=== PATIENT | female | born 1955 | race Caucasian/White ===

== ENCOUNTER 2016-09-25 08:12 | Day surgery (SDC) | payer BC ==
[2016-09-24 11:28] VITALS: BMI 33.0
[~2016-09-25 08:12] MED LIST: LACTATED RINGERS 1,000 ML IV SCH
[2016-09-25 08:33] VITALS: TEMP 97.9
[2016-09-25] MEDS ORDERED: LIDOCAINE 1% 20 ML VIAL (10MG/ML) FOR IV START INTRADERMA ONE (08:42)
[2016-09-25] MEDS ORDERED: PROPOFOL 10 MG/ML 20 ML VIAL IV ONE (09:13)
[2016-09-25] MEDS ORDERED: LIDOCAINE 1% INJ 10MG/ML (20 ML MDV) ONE (09:13)
--- NOTE | 2016-09-25 09:41 | P.PCN ---
Date of Procedure: 09/25/16 Preoperative Diagnosis: Postoperative Diagnosis: Procedure(s) Performed: Procedure: Total colonoscopy. Preoperative diagnosis: Screening for neoplasia. Postoperative diagnosis: Sigmoid diverticulosis with no evidence of acute diverticulitis, strictures, polyps or cancer. Preparation: HalfLytely prep. Sedation: Was provided by anesthesia. Brief clinical history: The patient is a 61-year-old female who is scheduled for this evaluation for screening for neoplasia age being her risk factor. Her mother had polyps but there is no family history of colon cancer. The patient has no abdominal complaints, bleeding or anemia. This would be her first colonoscopy. Procedure: With the patient on her left lateral decubitus position and after informed consent and adequate sedation, the perianal area was inspected and it did not show any fissures or fistulas. There were no masses felt on digital rectal examination. The Olympus CFQ 160L video colonoscope was then inserted in the rectum in the usual fashion and advanced to the cecum. There were a few diverticular orifices seen scattered in the sigmoid with no evidence of acute diverticulitis or strictures. No polyps or tumors were seen. I retroflexed the endoscope in the rectum before the endoscope was withdrawn. The patient tolerated the procedure well. Plan: The patient was reassured. Discussed dietary measures. She will follow- up with you as planned and I recommended repeat exam in 10 years. Implants: Indications for Procedure: Operative Findings: Description of Procedure:
[2016-09-25 09:46] VITALS: RESP 16
[2016-09-25 10:10] VITALS: BP 125/61; PULSE 70
== END 2016-09-25 10:51 | disposition home or self-care (01) ==
LOC: ORWHC2ENDO 08:12
DX: Z12.11 Encounter for screening for malignant neoplasm of colon (principal); K57.30 Diverticulosis of large intestine without perforation or abscess without bleeding; Z83.71 Family history of colonic polyps; I25.10 Atherosclerotic heart disease of native coronary artery without angina pectoris; I10 Essential (primary) hypertension; I25.2 Old myocardial infarction; Z98.61 Coronary angioplasty status; Z79.82 Long term (current) use of aspirin; Z79.899 Other long term (current) drug therapy
CPT/HCPCS: J2001; J2704; G0105; 45378

== ENCOUNTER 2017-08-20 05:09 | Observation (INO) | payer BC, MEDICARE ==
[2017-08-20 05:43] LABS: Basophils % (A) 0 %; Eosinophils # (A) 0.1 k/uL (0-0.7); Eosinophils % (A) 2 %; HCT 36.7 % (34.0-46.0); HGB 12.3 gm/dL (11.4-16.0); Lymphocytes # (A) 1.3 k/uL (1.0-4.8); Lymphocytes % (A) 19 %; MCH 30.4 pg (25.0-35.0); MCHC 33.6 g/dL (31.0-37.0); MCV 90.3 fL (80.0-100.0); Mean Platelet Volume 8.4; Monocytes # (A) 0.7 k/uL (0-1.0); Monocytes % (A) 10 %; Neutrophils # (A) 4.5 k/uL (1.3-7.7); Neutrophils % (A) 66 %; Platelet Count 155 k/uL (150-450); RBC 4.06 m/uL (3.80-5.40); RDW 13.6 % (11.5-15.5); WBC 6.7 k/uL (3.8-10.6)
[2017-08-20 05:44] LABS: Albumin 3.8 g/dL (3.5-5.0); Calcium 9.2 mg/dL (8.4-10.2); Total Bilirubin 0.5 mg/dL (0.2-1.3); Total Protein 6.4 g/dL (6.3-8.2)
[2017-08-20 05:46] LABS: Potassium 4.4 mmol/L (3.5-5.1)
[2017-08-20] MEDS ORDERED: DIAZEPAM 5 MG/ML 2 ML INJ IVP STA (05:49)
--- NOTE | 2017-08-20 05:55 | ED ---
Chest Pain HPI - General Chief Complaint: Chest Pain Stated Complaint: Chest Pain/ Hx of CA Time Seen by Provider: 08/20/17 05:40 Source: patient Mode of arrival: ambulatory Limitations: physical limitation - History of Present Illness Initial Comments: This patient is a 62-year-old woman presenting to be evaluated for left-sided chest pains that started around 7 PM. The patient states that they have been intermittent. She describes them as being like a spasm and if she moves certain way or bruits in a certain way she'll have a spasming pain lasts a few seconds. She states that sometimes if she sits in certain position it is better. The patient believes that this is related to having walked to the beach yesterday and states that her rhythm at walking was not right. The patient is not having anginal symptoms. No dyspnea, diaphoresis, nausea or vomiting, palpitations, lightheadedness or syncope. Patient states she has. He said had 2 heart attacks and this does not feel like either of those. MD Complaint: chest pain Onset/Timin -: hour(s) Onset: during rest Pain Location: left chest Pain Radiation: none Severity: moderate Quality: other (Like a spasm) Consistency: intermittent Improves With: nothing Worsens With: inspiration, movement Treatments Prior to Arrival: none - Related Data Home Medications Medication Instructions Recorded Confirmed Aspirin 162 mg PO DAILY 07/05/14 08/20/17 Carvedilol [Coreg] 25 mg PO BID 09/24/16 08/20/17 Cholecalciferol [Vitamin D3] 1,000 unit PO DAILY 09/24/16 08/20/17 Glucosam/Jonah-Msm1/C/Thad/Bosw 1 each PO DAILY 09/24/16 08/20/17 [Glucosamine-Chondroitin Tablet] Lisinopril [Prinivil] 20 mg PO HS 09/24/16 08/20/17 Spironolactone-Hctz 25-25Mg 1 tab PO DAILY 09/24/16 08/20/17 [Aldactazide 25-25Mg] amLODIPine BESYLATE [Norvasc] 5 mg PO BID 09/24/16 08/20/17 Atorvastatin [Lipitor] 20 mg PO HS 08/20/17 08/20/17 Furosemide [Lasix] 40 mg PO DAILY 08/20/17 08/20/17 Allergies Allergy/AdvReac Type Severity Reaction Status Date / Time No Known Allergies Allergy Verified 08/20/17 07:44 Review of Systems ROS Statement: Those systems with pertinent positive or pertinent negative responses have been documented in the HPI. ROS Other: All systems not noted in ROS Statement are negative. Constitutional: Denies: fever, chills, weakness Respiratory: Denies: cough, dyspnea Cardiovascular: Reports: as per HPI, chest pain. Denies: palpitations, orthopnea, edema, syncope Gastrointestinal: Denies: abdominal pain, nausea, vomiting Genitourinary: Denies: dysuria, hematuria Musculoskeletal: Denies: back pain Skin: Denies: rash Neurological: Denies: headache, weakness, numbness, paresthesias EKG Findings - EKG Results: EKG: interpreted by TAYLOR, sinus rhythm, normal axis, normal QRS, normal ST/T - Blocks, [place], Hypertrophy, ST Abn: AV and intraventricular conduction: 1 AV block Past Medical History Past Medical History: Hypertension, Myocardial Infarction (CA) Additional Past Medical History / Comment(s): hemorrhoids, CA x2 Last Myocardial Infarction Date:: 2007 History of Any Multi-Drug Resistant Organisms: None Reported Past Surgical History: Heart Catheterization, Orthopedic Surgery Additional Past Surgical History / Comment(s): LT KNEE REPLACEMENT,PTCA Past Anesthesia/Blood Transfusion Reactions: No Reported Reaction Past Psychological History: No Psychological Hx Reported Smoking Status: Never smoker - Past Family History Mother Family Medical History: Cancer Additional Family Medical History / Comment(s): breast,brain Father Additional Family Medical History / Comment(s): emphysema General Exam Limitations: physical limitation General appearance: alert, in no apparent distress, obese Head exam: Present: atraumatic, normocephalic Eye exam: Present: normal appearance. Absent: scleral icterus, conjunctival injection ENT exam: Present: normal oropharynx Neck exam: Present: normal inspection Respiratory exam: Present: normal lung sounds bilaterally. Absent: respiratory distress, wheezes, rales, rhonchi, stridor, chest wall tenderness, accessory muscle use, decreased breath sounds, prolonged expiratory Cardiovascular Exam: Present: regular rate, normal rhythm, normal heart sounds. Absent: systolic murmur, diastolic murmur, rubs, gallop GI/Abdominal exam: Present: soft. Absent: distended, tenderness, guarding, rebound, mass Extremities exam: Present: normal inspection, normal capillary refill. Absent: pedal edema, calf tenderness Back exam: Present: normal inspection. Absent: CVA tenderness (R), CVA tenderness (L) Neurological exam: Present: alert Skin exam: Present: warm, dry, intact, normal color. Absent: rash Course Vital Signs 08/20/17 08/20/17 08/20/17 05:23 06:00 06:29 Temperature 97.7 F 98 F Pulse Rate 74 87 73 Respiratory 17 18 20 Rate Blood Pressure 116/57 116/78 117/56 O2 Sat by Pulse 100 97 99 Oximetry 08/20/17 08/20/17 08/20/17 06:53 07:46 08:37 Temperature Pulse Rate 73 74 Respiratory 20 20 Rate Blood Pressure 114/60 123/65 O2 Sat by Pulse 97 99 99 Oximetry 08/20/17 08/20/17 08:53 09:07 Temperature Pulse Rate 72 74 Respiratory 20 Rate Blood Pressure 112/60 106/57 O2 Sat by Pulse 97 96 Oximetry Disposition Clinical Impression: Chest pain, Elevated d-dimer Disposition: ADMITTED IP TO THIS [facility] Condition: Fair Is patient prescribed a controlled substance at d/c from ED?: No
[2017-08-20 05:57] LABS: Creatine Kinase 128 U/L (30-135)
[2017-08-20 06:10] LABS: Creatine Kinase MB 1.4 ng/mL (0.0-2.4); Troponin I <0.012 ng/mL (0.000-0.034)
--- NOTE | 2017-08-20 06:29 | XR ---
EXAMINATION TYPE: XR chest 2V DATE OF EXAM: 08/20/2017 COMPARISON: NONE HISTORY: Chest pain TECHNIQUE: Frontal and lateral views of the chest are obtained. FINDINGS: Heart and mediastinum are normal. Lungs are clear. Diaphragm is normal. Bony thorax appear s normal. IMPRESSION: Normal chest
--- NOTE | 2017-08-20 07:46 | CT ---
EXAMINATION TYPE: CT chest angio for PE DATE OF EXAM: 08/20/2017 COMPARISON: Radiograph same day HISTORY: 62-year-old female Chest pain and "contractions" per patient TECHNIQUE: Contiguous axial scanning of the chest performed with IV Contrast, patient injected with 8 0 mL of Isovue 370. Coronal/sagittal MIP reconstructions performed. CT DLP: 975 mGycm Automated exposure control for dose reduction was used. FINDINGS: Heart normal size with trace anterior basilar pericardial fluid. Coronary vessel calcifications are p resent in remarkable for coronary artery disease. Ascending aorta borderline ectatic at 3.5 cm. There is conventional arterial vessel branching anatomy . Mildly enlarged caliber to the main right and left pulmonary arteries and 2.7 cm each suggestive of p ulmonary arterial hypertension. There is suboptimal opacification of pulmonary arterial system withou t evidence for a large central or lobar embolus. Additional respiratory motion artifacts at the lung bases limiting many of the segmental branches. No definite pulmonary embolus in the upper lungs. No thoracic lymphadenopathy. Mild centrilobular emphysema. Dependent atelectasis lower lungs. Additional strandy lower lung areas of atelectasis. No consolidation or pleural effusion. Some reflux of contrast into the hepatic veins is noted. Layering gallstones measuring up to 1.4 cm. Bones: Endplate spondylosis mid to lower thoracic spine. IMPRESSION: 1. SUBOPTIMAL CONTRAST BOLUS AND RESPIRATORY MOTION ARTIFACTS LIMIT THE EXAM. NO DEFINITE PULMONARY E MBOLISM IN THE UPPER LUNGS OR EVIDENCE FOR LARGE CENTRAL OR LOBAR EMBOLUS. MANY OF THE SEGMENTAL AND MORE DISTAL ARTERIAL BRANCHES IN THE MID AND LOWER LUNGS ARE NONDIAGNOSTIC. 2. COPD WITH MILD EMPHYSEMA. 3. FINDINGS SUGGEST PULMONARY ARTERIAL HYPERTENSION. ADDITIONALLY, THERE IS REFLUX OF CONTRAST INTO T HE HEPATIC VEINS; CORRELATE FOR ELEVATED RIGHT HEART PRESSURES. 4. CHOLELITHIASIS.
[2017-08-20] MEDS ORDERED: HEPARIN SODIUM,PORCINE 5,000 UNIT/ML 1 ML VIAL SQ SCH (08:00)
[2017-08-20] MEDS: NITROGLYCERIN SL TABS 0.4 MG TAB SUBLINGUAL PRN ×3 (08:46→09:06)
[2017-08-20] MEDS: SODIUM CHLORIDE 0.9% 1,000 ML IV SCH (09:06)
[2017-08-20] MEDS ORDERED: HEPARIN SODIUM,PORCINE 5,000 UNIT/ML 1 ML VIAL IV PRN (10:24)
[2017-08-20] MEDS ORDERED: HEPARIN SODIUM,PORCINE 5,000 UNIT/ML 1 ML VIAL IV ONE (10:24)
[2017-08-20] MEDS ORDERED: ATORVASTATIN 80 MG TAB PO STA (10:26)
[2017-08-20] MEDS ORDERED: ASPIRIN 325 MG TAB PO STA (10:26)
[2017-08-20] MEDS ORDERED: NITROGLYCERIN SL TABS 0.4 MG TAB SUBLINGUAL PRN (10:26)
[2017-08-20] MEDS ORDERED: ALPRAZolam 0.5 MG TAB PO PRN (10:26)
[2017-08-20] MEDS ORDERED: SODIUM CHLORIDE 0.9% 1,000 ML in EMPTY BAG 1 BAG IV ONE (10:26)
[2017-08-20] MEDS ORDERED: ALPRAZolam 0.25 MG TAB PO PRN (10:26)
--- NOTE | 2017-08-20 11:17 | CONS ---
CONSULTATION CHIEF COMPLAINT: Chest pain. This is a 62-year-old lady with history of coronary artery disease, status post prior angioplasty, hypertension, dyslipidemia, who presented to hospital with symptoms of unstable angina. The patient was on the beach yesterday between 12 to 2 did not do a whole lot, went home, was in the pool for a while and subsequently around 5:00 To 6:00 yesterday evening she had twinges in her chest, mild intensity, unassociated with diaphoresis, unrelated to exertion. She went to bed and woke up around 3, 3:30 in the morning, got up, went to the bathroom and again had an episode of chest pain. She says this is similar to the chest discomfort that she had prior to her myocardial infarction. First set of troponin is negative. EKG does not reveal ischemic changes. D-dimer was elevated. She had a CT scan of the chest that was negative for pulmonary embolism. Her presentation is consistent with a diagnosis of unstable angina. She had recent negative stress test. I am going to treat her with IV heparin and hydrate her as the creatinine is 1.2 and consider cardiac catheterization on her tomorrow. PAST MEDICAL HISTORY: Significant for hypertension and dyslipidemia. CURRENT MEDICATIONS: Current medications include aspirin, Coreg 25 b.i.d., Norvasc 5 b.i.d., Lipitor 20 q. daily, Lasix 40 q. daily, lisinopril 20 q. daily, and Aldactazide. ALLERGIES: There are no known drug allergies. FAMILY HISTORY: Negative for premature coronary artery disease. SOCIAL HISTORY: Negative for current smoking, EtOH abuse, or drug abuse. REVIEW OF SYSTEMS: HEENT is unremarkable. CARDIAC: As described above. RESPIRATORY: Negative. GI: Negative. GENITOURINARY: Negative. ALLERGY/IMMUNOLOGICAL: Negative. SKIN: Negative. MUSCULOSKELETAL: Negative. ENDOCRINE: Negative. DERM: Negative. CONSTITUTIONAL: Negative. ONCOLOGICAL: Negative. Rest of the system review is not relevant. PHYSICAL EXAMINATION: On exam, heart rate is 74 beats per minute. Blood pressure is 106/57. Respiratory rate is 18. O2 sat is 96% on 2 L. There is no jugular venous distention. Carotid upstroke is normal. There is no bruit. Chest exam reveals good air entry bilaterally. Heart exam reveals first and second heart sounds. No gallop. No murmur. No rub. Abdomen is soft, nontender. Examination of extremities did not reveal any edema. Peripheral pulses are felt. [employer] exam did not reveal focal neurological deficits. EKG does not reveal ischemic changes. Creatinine is mildly elevated. D-dimer is up. CT scan of the chest is negative. First set of troponin is negative. ASSESSMENT: 1. Unstable angina. 2. Hypertension. 3. Coronary artery disease, status post prior angioplasty. PLAN: We will hydrate the patient. Start her on IV heparin. Obtain a 2D echo and schedule her for a cardiac cath tomorrow with Dr. Magaña. TANIKA / BONNIE: [id number] /
[2017-08-20] MEDS: HEPARIN SOD,PORK IN 0.45% NACL 25,000 UNIT in 0.45% NACL 1 500ML.BAG IV SCH (11:29)
[2017-08-20 11:43] LABS: Partial Thromboplastin Time 23.5 sec (22.0-30.0); Prothrombin Time 10.1 sec (9.0-12.0)
[2017-08-20 11:46] LABS: Basophils % (A) 0 %; Eosinophils # (A) 0.1 k/uL (0-0.7); Eosinophils % (A) 1 %; HCT 36.4 % (34.0-46.0); HGB 12.1 gm/dL (11.4-16.0); Lymphocytes # (A) 1.3 k/uL (1.0-4.8); Lymphocytes % (A) 19 %; MCH 30.4 pg (25.0-35.0); MCHC 33.3 g/dL (31.0-37.0); MCV 91.2 fL (80.0-100.0); Mean Platelet Volume 8.2; Monocytes # (A) 0.6 k/uL (0-1.0); Monocytes % (A) 9 %; Neutrophils # (A) 4.4 k/uL (1.3-7.7); Neutrophils % (A) 67 %; Platelet Count 146 k/uL (150-450); RBC 3.99 m/uL (3.80-5.40); RDW 13.7 % (11.5-15.5); WBC 6.6 k/uL (3.8-10.6)
[2017-08-20 11:54] LABS: Creatine Kinase 97 U/L (30-135)
[2017-08-20 12:08] LABS: Creatine Kinase MB 1.1 ng/mL (0.0-2.4); Troponin I <0.012 ng/mL (0.000-0.034)
--- NOTE | 2017-08-20 12:52 | ECHOF ---
Referral Reason:chest pain MEASUREMENTS -------- HEIGHT: 180.3 cm WEIGHT: 136.1 kg BP: 106/57 RVIDd: 3.8 cm (< 3.3) IVSd: 1.1 cm (0.6 - 1.1) LVIDd: 5.2 cm (3.9 - 5.3) LVPWd: 1.1 cm (0.6 - 1.1) IVSs: 1.4 cm LVIDs: 3.5 cm LVPWs: 1.4 cm LAESV Index (A-L): 25.65 ml/m Ao Diam: 2.8 cm (2.0 - 3.7) AV Cusp: 1.7 cm (1.5 - 2.6) LA Diam: 3.6 cm (2.7 - 3.8) MV E Saad: 0.78 m/s MV DecT: 238 ms MV A Saad: 0.84 m/s MV E/A Ratio: 0.93 RAP: 5.00 mmHg RVSP: 13.59 mmHg FINDINGS -------- Sinus rhythm. This was a technically difficult study with suboptimal views. The left ventricular size is normal. There is mild concentric left ventricular hypertrophy. Overa ll left ventricular systolic function is normal with, an EF between 55 - 60 %. The right ventricle is mildly enlarged. Normal LA size by volume 22+/-6 ml/m2. The right atrium is normal in size. 3ml of Lumason was utilized for enhancement of images. There is mild aortic valve sclerosis. There is no evidence of aortic regurgitation. There is no e vidence of aortic stenosis. The mitral valve leaflets are mildly thickened. There is trace to mild mitral regurgitation. Trace tricuspid regurgitation present. Right ventricular systolic pressure is normal at < 35 mmHg. There is no evidence of pulmonary hypertension. The pulmonic valve was not well visualized. The aortic root size is normal. IVC Not well visulized. There is no pericardial effusion. CONCLUSIONS -------- 1. Sinus rhythm. 2. This was a technically difficult study with suboptimal views. 3. The left ventricular size is normal. 4. There is mild concentric left ventricular hypertrophy. 5. Overall left ventricular systolic function is normal with, an EF between 55 - 60 %. 6. The right ventricle is mildly enlarged. 7. Normal LA size by volume 22+/-6 ml/m2. 8. 3ml of Lumason was utilized for enhancement of images. 9. There is mild aortic valve sclerosis. 10. The mitral valve leaflets are mildly thickened. 11. There is trace to mild mitral regurgitation. 12. Trace tricuspid regurgitation present. 13. Right ventricular systolic pressure is normal at < 35 mmHg. 14. There is no evidence of pulmonary hypertension. 15. The pulmonic valve was not well visualized. 16. The aortic root size is normal. 17. IVC Not well visulized. 18. There is no pericardial effusion. SPEECH THERAPIST TECHNICIAN: Mor Lagos RDCS
--- NOTE | 2017-08-20 17:02 | HP ---
HISTORY AND PHYSICAL DATE OF SERVICE: 08/20/17 PRESENTING COMPLAINT: Left-sided chest cramps. HISTORY OF PRESENTING COMPLAINT: This is a very pleasant 62-year-old patient Dr. Osullivan. Also follows with grain origination specialist Dr. Abhishek Magaña. Chronic stable medical conditions include hypertension, osteoarthritis, hyperlipidemia. The patient had angioplasty back in 2005 at [facility]. Yesterday around 6:00 pm she developed cramping on the left side of the chest, lasted about 2 to 3 hours, and patient went to sleep. The patient woke up around 3:30 again with cramping on the left side of the chest far more severe. The pain did not radiate. There was no shortness of breath. No dizziness. No lightheadedness. No perspiration. Concern of this being cardiac and a prior history of angioplasty resulted patient coming down to the ER. The patient is put on IV heparin. Seen by Dr. Dana marr who is contemplating a cardiac catheterization tomorrow. REVIEW OF SYSTEMS: CONSTITUTIONAL: None. HEENT: None. RESPIRATORY: None. CARDIOVASCULAR: As above. GASTROINTESTINAL: None. GENITOURINARY: None. MUSCULOSKELETAL: Arthritic pain in different joints. DERMATOLOGICAL, HEMATOLOGIC, LYMPHATIC: None. PSYCHIATRY: None. NEUROLOGICAL: None. PAST MEDICAL HISTORY: Hypertension, coronary artery disease with angioplasty in 2005, osteoarthritis, hyperlipidemia. PAST SURGICAL HISTORY: , cardiac catheterization, angioplasty in 2005, left total knee replacement, colonoscopy. SOCIAL HISTORY: . Does not smoke or drink alcohol. Is a homemaker. FAMILY HISTORY: Mother had breast and brain cancer. HOME MEDICATIONS: 1. Aldactazide 20/25 1 tab p.o. daily. 2. Prinivil 20 mg p.o. q.h.s. 3. Lasix 40 mg p.o. daily. 4. Lipitor 20 mg at bedtime. 5. Norvasc 5 mg b.i.d. 6. Glucosamine chondroitin 1 tab p.o. daily. 7. Vitamin D3 1000 units p.o. daily. 8. Coreg 25 mg p.o. b.i.d. 9. Aspirin 162 mg p.o. daily. ALLERGIES: None. PHYSICAL EXAMINATION: Vital signs on presentation: Temperature 97.7, pulse 74, respirations 18, blood pressure 116/57, pulse ox 100% on room air. GENERAL APPEARANCE: Well built, BMI 41.8, sitting up, awake. EYES: Pupils equal. Conjunctivae normal. HEENT: External appearance of nose and ears normal. Oral cavity normal. NECK: JVD not raised. Mass not palpable. RESPIRATORY: Effort normal. Lungs are clear. CARDIOVASCULAR: First and second sounds normal. No edema. ABDOMEN: Soft, nontender. Liver and spleen not palpable. LYMPHATIC: No lymph nodes palpable in neck or axillae. PSYCHIATRY: Alert and oriented x3. Mood and affect normal. NEUROLOGICAL: Pupils equal. Cranial nerves grossly intact. Power and sensation grossly intact. INVESTIGATIONS: White count 6.6, hemoglobin 12.1. Troponin x2 negative. EKG normal sinus rhythm with some poor R-wave progression. ASSESSMENT: 1. Left-sided chest pain more like a cramping in a patient with known prior angioplasty. Need to rule out a cardiac cause. If not, this could be muscle cramps. 2. Essential hypertension. 3. Coronary artery disease with angioplasty in 2005. 4. Primary osteoarthritis. 5. Hyperlipidemia. 6. Morbid obesity, BMI 41.8. 7. IV heparin monitoring. PLAN: The patient with IV heparin monitoring, aspirin. We will resume patient's Coreg. The patient's blood pressure is not that high, been running on the lower side. Hence, we will hold off the other antihypertensive. Cardiology is contemplating a cardiac catheterization. Care was discussed with the patient. TANIKA / BONNIE: [id number] /
[2017-08-20] MEDS: CARVEDILOL 12.5 MG TAB PO SCH (18:27)
[2017-08-20 18:28] LABS: Creatine Kinase 95 U/L (30-135)
[2017-08-20 18:40] LABS: Creatine Kinase MB 0.9 ng/mL (0.0-2.4); Troponin I <0.012 ng/mL (0.000-0.034)
[2017-08-20] MEDS: ATORVASTATIN 20 MG TAB PO SCH (20:07)
[2017-08-21 05:58] LABS: Glucose,Whole Blood 104 mg/dL (75-99)
[2017-08-21] MEDS: SODIUM CHLORIDE 0.9% 1,000 ML IV SCH (06:10)
[2017-08-21] MEDS: CARVEDILOL 12.5 MG TAB PO SCH ×2 (06:10→17:42)
[2017-08-21] MEDS ORDERED: ASPIRIN 325 MG TAB PO SCH (09:00)
[2017-08-21] MEDS ORDERED: ASPIRIN 325 MG TAB PO ONE (09:00)
[2017-08-21] MEDS ORDERED: ATORVASTATIN 80 MG TAB PO ONE (09:00)
[2017-08-21] MEDS ORDERED: ASPIRIN 81 MG PO SCH (09:00)
[2017-08-21 09:01] LABS: Basophils % (A) 0 %; Eosinophils # (A) 0.1 k/uL (0-0.7); Eosinophils % (A) 2 %; HCT 36.4 % (34.0-46.0); HGB 12.3 gm/dL (11.4-16.0); Lymphocytes # (A) 1.4 k/uL (1.0-4.8); Lymphocytes % (A) 26 %; MCH 30.5 pg (25.0-35.0); MCHC 33.7 g/dL (31.0-37.0); MCV 90.4 fL (80.0-100.0); Mean Platelet Volume 9.2; Monocytes # (A) 0.5 k/uL (0-1.0); Monocytes % (A) 10 %; Neutrophils # (A) 3.1 k/uL (1.3-7.7); Neutrophils % (A) 59 %; Platelet Count 121 k/uL (150-450); RBC 4.02 m/uL (3.80-5.40); RDW 13.6 % (11.5-15.5); WBC 5.3 k/uL (3.8-10.6)
[2017-08-21 09:30] LABS: Cholesterol 108 mg/dL (<200); HDL Cholesterol 35 mg/dL (40-60); LDL Cholesterol,Calculated 53 mg/dL (0-99); Triglycerides 98 mg/dL (<150)
[2017-08-21] MEDS: HEPARIN SOD,PORK IN 0.45% NACL 25,000 UNIT in 0.45% NACL 1 500ML.BAG IV SCH (11:34)
[2017-08-21] MEDS ORDERED: MIDAZOLAM 2 MG/2 ML VIAL ONE (11:59)
[2017-08-21] MEDS ORDERED: fentaNYL (PF) 50 MCG/ML 2 ML AMP ONE (11:59)
[2017-08-21] MEDS ORDERED: IV FLUID CONTINUATION 700 ML IV ONE (12:06)
[2017-08-21] MEDS ORDERED: fentaNYL (PF) 50 MCG/ML 2 ML AMP IV ONE (12:12)
[2017-08-21] MEDS ORDERED: MIDAZOLAM 2 MG/2 ML VIAL IVP ONE (12:12)
[2017-08-21] MEDS ORDERED: LIDOCAINE 1% INJ 10MG/ML (20 ML MDV) SQ ONE (12:19)
[2017-08-21] MEDS ORDERED: IOPAMIDOL-370 125ML BTL INJ ONE (12:31)
--- NOTE | 2017-08-21 13:56 | CC ---
CARDIAC CATHETERIZATION REPORT Mrs. Newell is a 62-year-old female, who was admitted to the hospital with symptoms suggestive of unstable angina syndrome. Patient's EKGs and cardiac enzymes were normal. Patient was advised further evaluation with a cardiac catheterization for definitive diagnosis. PROCEDURE: The right groin was prepped and draped in the usual manner and the skin was infiltrated with 2% Xylocaine. The right femoral artery was entered using Seldinger technique. A #6-Brazilian sheath was placed in. Selective coronary angiography was then performed in multiple projections and the left ventricular pressures were obtained. Patient tolerated the procedure well. Sheath was removed and good hemostasis was achieved with Angio-Seal. HEMODYNAMICS: Left ventricular end-diastolic pressure is 12-14 mmHg prior to angiography. No gradient is noted across the aortic valve. Moderate sedation was used, sedation time was 12 minutes. SELECTIVE CORONARY ANGIOGRAPHY: Left main coronary artery is normal and patent. LAD is a good caliber blood vessel and gives rise to good-sized diagonal branch. LAD and its branches are normal. Circumflex coronary artery is a good caliber blood vessel and gives rise as a good size obtuse marginal branch. Circumflex coronary artery and its branches are normal. Right coronary artery is dominant in distribution and gives rise to the PDA and PLV branches which are normal. FINAL IMPRESSION: This study reveals normal coronary arteries. RECOMMENDATIONS: Continue medical treatment and risk factor modification. MMODL / IJN: [id number] /
--- NOTE | 2017-08-21 22:42 | PN ---
PROGRESS NOTE DATE OF SERVICE: 08/21/2017. PRESENTING COMPLAINT: Left-sided chest cramps. INTERVAL HISTORY: This patient presented with chest cramps, being worked up for coronary artery disease. The patient went down for a cardiac catheterization today. I do not have the full results. The patient is currently at bedrest. REVIEW OF SYSTEMS: Done for constitutional, cardiovascular, GI, pulmonary; relevant findings as above. CURRENT MEDICATIONS: Reviewed. PHYSICAL EXAMINATION: Temperature 98, pulse 71, respiratory rate 18, blood pressure 118/69, pulse ox 96% on room. GENERAL APPEARANCE: Lying in bed comfortable. EYES: Pupils equal. Conjunctivae normal. HEENT: External appearance of nose and ears normal. Oral cavity normal. NECK: JVD not raised. Mass not palpable. Respiratory effort normal. LUNGS: Clear. CARDIOVASCULAR: 1st and 2nd heart sounds. No edema. ABDOMEN: Soft, nontender. Liver and spleen not palpable. PSYCHIATRY: Alert and oriented x3. Mood normal. INVESTIGATIONS: The patient did have a cardiac catheterization, that has come back to be negative. ASSESSMENT: 1. Left-sided chest wall cramping, probably musculoskeletal. 2. Essential hypertension. 3. Coronary artery disease with angioplasty in 2005. 4. Primary osteoarthritis. 5. Hyperlipidemia. 6. Morbid obesity, BMI 41.8. PLAN: Patient is on bedrest right now. Should be able to be discharged later today or tomorrow. Care was discussed with the patient. TANIKA / BONNIE: [id number] /
[2017-08-21] MEDS: ATORVASTATIN 20 MG TAB PO SCH (22:51)
[2017-08-22 06:30] LABS: Basophils % (A) 1 %; Eosinophils # (A) 0.1 k/uL (0-0.7); Eosinophils % (A) 2 %; HCT 37.6 % (34.0-46.0); HGB 12.1 gm/dL (11.4-16.0); Lymphocytes # (A) 1.2 k/uL (1.0-4.8); Lymphocytes % (A) 22 %; MCHC 32.2 g/dL (31.0-37.0); MCV 93.4 fL (80.0-100.0); Mean Platelet Volume 8.2; Monocytes # (A) 0.5 k/uL (0-1.0); Monocytes % (A) 9 %; Neutrophils # (A) 3.4 k/uL (1.3-7.7); Neutrophils % (A) 65 %; Platelet Count 127 k/uL (150-450); RBC 4.03 m/uL (3.80-5.40); RDW 13.7 % (11.5-15.5); WBC 5.3 k/uL (3.8-10.6)
[2017-08-22] MEDS ORDERED: ASPIRIN 81 MG PO SCH (09:00)
[2017-08-22] MEDS: CARVEDILOL 12.5 MG TAB PO SCH (09:02)
--- NOTE | 2017-08-22 11:27 | P.PN ---
Subjective Progress Note Date: 08/22/17 Principal diagnosis: Chest discomfort This is a pleasant 62-year-old female patient was admitted to the hospital with a chest discomfort and underwent a heart catheterization by Dr. Magaña and was found to have normal coronaries. On follow-up with her today, she denies having any chest pain or chest discomfort or shortness of breath or dizziness or lightheadedness. From a cardiovascular standpoint of view, the patient can be discharged home. Objective - Vital Signs Vital signs: Vital Signs Temp 97.0 F L 08/22/17 08:00 Pulse 71 08/21/17 11:31 Resp 18 08/22/17 08:00 BP 137/79 08/22/17 08:00 Pulse Ox 97 08/22/17 08:00 Intake & Output 08/21/17 08/22/17 08/22/17 18:59 06:59 18:59 Intake Total 718.43 118 Balance 718.43 118 Weight 132.5 kg Intake: IV 100 Intake, IV Titration 138.43 Amount Heparin Sod,Pork in 0.45% 138.43 NaCl 25,000 unit In 0.45 % NaCl 1 500ml.bag @ 7.35 UNITS/KG/HR 20 mls/hr IV .Q24H [facility] Rx#:[id number] Oral 480 118 Other: Voiding Method Toilet Toilet # Voids 1 2 - Constitutional General appearance: Present: no acute distress - Cardiovascular Rhythm: regular Heart sounds: normal: S1, S2 - Labs CBC & Chem 7: 08/22/17 05:55 08/20/17 05:24 Labs: Abnormal Lab Results - Last 24 Hours (Table) 08/22/17 Range/Units 05:55 Plt Count 127 L (150-450) k/uL Assessment and Plan Assessment: Assessment #1 chest discomfort Plan #1 the patient underwent a heart catheterization showed normal coronaries #2 from the cardiovascular standpoint overview, she can be discharged home.
[2017-08-22] MEDS: HEPARIN SOD,PORK IN 0.45% NACL 25,000 UNIT in 0.45% NACL 1 500ML.BAG IV SCH (11:32)
[2017-08-22] MEDS: SODIUM CHLORIDE 0.9% 1,000 ML IV SCH (11:32)
[2017-08-22 14:07] VITALS: BP 126/70; PULSE 78; RESP 16; TEMP 96.9
--- NOTE | 2017-08-23 23:17 | DS ---
DISCHARGE SUMMARY DATE OF ADMISSION: 08/20/2017. DATE OF DISCHARGE: 08/22/2017. FINAL DIAGNOSES: 1. Left chest wall pain probably musculoskeletal. 2. Essential hypertension. 3. Coronary artery disease with angioplasty in 2005. 4. Primary osteoarthritis. 5. Hyperlipidemia. 6. Morbid obesity BMI 41.8. HOSPITAL COURSE: This patient presents with left-sided chest pain. Did undergo a cardiac catheterization by Dr. Abhishek Magaña that showed normal coronaries. 2D echo showed preserved LV function. Ejection fraction 55-60%. Patient's troponins were negative. Care was discussed with the patient. CONSULTATION: Dr. Abhishek Magaña from Cardiology who did the cardiac catheterization and Dr. Arturo Brambila did the initial consultation. DISCHARGE MEDICATIONS: 1. Vitamin D3 1000 units p.o. daily. 2. Glucosamine chondroitin 1 tablet p.o. daily. 3. Norvasc 5 mg p.o. b.i.d. 4. Lipitor 20 mg p.o. q.h.s. 5. Aspirin 81 mg p.o. daily. Discontinued medications: Coreg 25 mg b.i.d., Aldactazide Prinivil, and Lasix. FOLLOW UP: Follow up with Dr. Osullivan in 3 days, follow up with Dr. Abhishek Magaña on August 26, 2017. Patient's blood pressure at the time of discharge was 126/70 and the patient did well keeping off the medications she was on at home. EXAM: Lungs are clear. Cardiovascular: 1st and 2nd sounds normal. Discussion and discharge planning more than [address] Osullivan. JULIETAL / IJN: [id number] /
== END 2017-08-22 16:57 | disposition home or self-care (01) ==
LOC: EC 05:09 → 6SEL 07:46
PROVIDERS: ADMIT Hospitalist; ATTEND Hospitalist
DX: R07.89 Other chest pain (principal); R79.89 Other specified abnormal findings of blood chemistry; I10 Essential (primary) hypertension; I25.10 Atherosclerotic heart disease of native coronary artery without angina pectoris; E78.5 Hyperlipidemia, unspecified; M19.91 Primary osteoarthritis, unspecified site; Z68.41 Body mass index [BMI] 40.0-44.9, adult; E66.01 Morbid (severe) obesity due to excess calories; I25.2 Old myocardial infarction; Z79.82 Long term (current) use of aspirin; Z79.899 Other long term (current) drug therapy; Z82.5 Family history of asthma and other chronic lower respiratory diseases; Z80.3 Family history of malignant neoplasm of breast; Z80.8 Family history of malignant neoplasm of other organs or systems; Z98.61 Coronary angioplasty status
CPT/HCPCS: 96375 ×2; 99285; 96365; 96366 ×2; 96372; 36415; 93005; 93306; 93458; 85379; 80061; 80053; 82550; 82553; 83735; 84484; 85025 ×3; 85610; 85730 ×2; 71046; 71275; G0378 ×3; C1760; C1894; C1769; J2250; J1644 ×2; J3360; J2001; J3010; Q9950; Q9967 ×2; 96374

== ENCOUNTER → 2017-12-02 | Outpatient (CLI) | payer BC, MEDICARE | LOC: RADUSWWP 12:40 | PROVIDERS: ATTEND Family Medicine | DX: I73.9 Peripheral vascular disease, unspecified (principal) | CPT/HCPCS: 93923 ==

== ENCOUNTER → 2017-12-15 | Outpatient (CLI) | payer BC, MEDICARE ==
--- NOTE | 2017-12-15 16:32 | US ---
EXAMINATION TYPE: US kidneys/renal and bladder DATE OF EXAM: 12/15/2017 COMPARISON: NONE CLINICAL HISTORY: R94.4 Decreased Renal Function. Difficult due to patient body habitus EXAM MEASUREMENTS: Right Kidney: 9.9 x 4.5 x 4.4 cm Left Kidney: 10.2 x 5.1 x 4.5 cm Right Kidney: No hydronephrosis or masses seen Left Kidney: Limited due to patient body habitus. No hydronephrosis visualized Bladder: wnl as visualized, not fully distended Bilateral Jets seen: Yes There is no evidence for hydronephrosis at this point in time. No nephrolithiasis is seen. No kedar s are identified. The urinary bladder is anechoic. Bilateral ureteral jets are seen. IMPRESSION: No distinct abnormality appreciated at this time.
== END | disposition home or self-care (01) ==
LOC: RADUSWWP 15:59
PROVIDERS: ATTEND Family Medicine
DX: R94.4 Abnormal results of kidney function studies (principal)
CPT/HCPCS: 76770

== ENCOUNTER → 2018-03-04 | Outpatient (CLI) | payer BC, MEDICARE ==
[2018-03-04 13:39] LABS: Basophils % (A) 0 %; Eosinophils # (A) 0.1 k/uL (0-0.7); Eosinophils % (A) 1 %; HCT 37.8 % (34.0-46.0); HGB 12.8 gm/dL (11.4-16.0); Lymphocytes # (A) 1.6 k/uL (1.0-4.8); Lymphocytes % (A) 22 %; MCH 31.4 pg (25.0-35.0); MCHC 33.9 g/dL (31.0-37.0); MCV 92.8 fL (80.0-100.0); Monocytes # (A) 0.5 k/uL (0-1.0); Monocytes % (A) 7 %; Neutrophils # (A) 4.9 k/uL (1.3-7.7); Neutrophils % (A) 68 %; Platelet Count 194 k/uL (150-450); RBC 4.08 m/uL (3.80-5.40); RDW 13.3 % (11.5-15.5); WBC 7.3 k/uL (3.8-10.6)
[2018-03-04 14:05] LABS: Appearance,Urine Clear (Clear); Bilirubin,Urine Negative (Negative); Blood,Urine Negative (Negative); Color,Urine Yellow; Glucose,Urine (UA) Negative (Negative); Ketones,Urine Negative (Negative); Leukocyte Esterase,Urine Negative (Negative); Nitrite,Urine Negative (Negative); Protein,Urine Negative (Negative); Specific Gravity,Urine 1.015 (1.001-1.035); Urobilinogen,Urine <2.0 mg/dL (<2.0)
[2018-03-04 19:27] LABS: Parathyroid Hormone Intact 40.1 pg/mL (14.0-72.0)
[2018-03-04 20:17] LABS: Iron Saturation 15.09 (12.00-45.00); Protein, Total 6.2 g/dL (6.2-8.2)
[2018-03-04 20:24] LABS: Albumin 4.2 g/dL (3.80-4.90); Calcium 9.1 mg/dL (8.7-10.3); Magnesium 1.8 mg/dL (1.5-2.4); Phosphorus 3.9 mg/dL (2.4-5.1); Potassium 3.9 mmol/L (3.5-5.5); Uric Acid 5.9 mg/dL (2.9-7.7)
[2018-03-04 20:25] LABS: Vitamin D 25 Hydroxy 38.1 ng/mL (30.0-100.0)
[2018-03-04 21:51] LABS: Creatinine,Urine Random 104.7 mg/dL
[2018-03-05 10:59] LABS: Albumin 3.48 g/dL (3.80-4.90); Gamma Globulin 0.74 g/dL (0.70-1.50)
== END | disposition home or self-care (01) ==
LOC: LABWHC1 12:30
PROVIDERS: ATTEND Internal Medicine Nephrology
DX: N17.9 Acute kidney failure, unspecified (principal); E55.9 Vitamin D deficiency, unspecified; E21.3 Hyperparathyroidism, unspecified; M10.9 Gout, unspecified; N39.0 Urinary tract infection, site not specified; D64.9 Anemia, unspecified; R80.9 Proteinuria, unspecified
CPT/HCPCS: 36415; 80048; 81003; 82040; 82306; 82570; 82728; 83540; 83550; 83735; 83970; 84100; 84156; 84165; 84550; 85025; 86335

== ENCOUNTER 2018-04-06 14:13 | Inpatient (IN) | payer BC, MEDICARE ==
[2018-04-06] MEDS ORDERED: ASPIRIN 81 MG PO STA (14:39)
[2018-04-06] MEDS ORDERED: SODIUM CHLORIDE 0.9% 1,000 ML IV STA ×2 (14:39→16:17)
[2018-04-06] MEDS ORDERED: MORPHINE SULFATE 2 MG/ML SYRINGE IVP STA (14:39)
[2018-04-06] MEDS ORDERED: ACETAMINOPHEN TAB 325 MG TAB PO STA (14:41)
--- NOTE | 2018-04-06 14:51 | ED ---
General Adult HPI - General Chief complaint: Fall Stated complaint: fall/neck pain Time Seen by Provider: 04/06/18 14:25 Source: patient, RN notes reviewed, old records reviewed Mode of arrival: ambulatory Limitations: no limitations - History of Present Illness Initial comments: 62-year-old female patient with past medical history of hypertension, prior myocardial infarction, CKD III presents to ED following a fall on 04/02/18. Patient reports that she was walking outside and fell backwards onto her gluteal region. Patient denies any trauma to head or neck. Patient denies a loss of consciousness. Patient reports that she initially felt fine after the fall, however within the next 3 hours she began to develop some neck stiffness worse on her right side. Patient continues to have this complaint. Patient states that the next day on 04/03/18 she began to develop a waxing and waning squeezing sensation on her left pectoral region. Patient continues to have this complaint. Patient states that this feels similar to a complaint that she had in August 2017 for which she underwent a heart catheterization which revealed normal coronaries and a preserved left ejection fraction. Patient has not taken anything for this problem. Patient denies all other complaints. Systemic: Pt denies fatigue, myalgia, fever/chills, rash. Pt denies weakness, night sweats, weight loss. Neuro: Pt denies headache, visual disturbances, syncope or pre-syncope. HEENT: Pt denies ocular discharge or irritation, otalgia, rhinorrhea, pharyngitis or notable lymphadenopathy. Cardiopulmonary: Pt denies SOB, heart palpitations, dyspnea on exertion. Abdominal/GI: Pt denies abdominal pain, n/v/d. : Pt denies dysuria, burning w/ urination, frequency/urgency. Denies new onset urinary or bowel incontinence. MSK: Pt denies myalgia, loss of strength or function in extremities. Neuro: Pt denies new onset weakness, paresthesias. - Related Data Home Medications Medication Instructions Recorded Confirmed Glucosam/Jonah-Msm1/C/Thad/Bosw 1 tab PO HS 09/24/16 04/06/18 [Glucosamine-Chondroitin Tablet] Atorvastatin [Lipitor] 20 mg PO HS 08/20/17 04/06/18 Allopurinol [Zyloprim] 100 mg PO HS 04/06/18 04/06/18 Aspirin 81 mg PO HS 04/06/18 04/06/18 Carvedilol [Coreg] 25 mg PO BID 04/06/18 04/06/18 Cholecalciferol (Vitamin D3) 2,000 unit PO BID 04/06/18 04/06/18 [Vitamin D3] Ferrous Sulfate [Feosol] 325 mg PO Q48H 04/06/18 04/06/18 Furosemide [Lasix] 40 mg PO HS PRN 04/06/18 04/06/18 Lisinopril 10 mg PO HS 04/06/18 04/06/18 amLODIPine [Norvasc] 2.5 mg PO HS 04/06/18 04/06/18 Allergies Allergy/AdvReac Type Severity Reaction Status Date / Time No Known Allergies Allergy Verified 04/06/18 15:48 Review of Systems ROS Statement: Those systems with pertinent positive or pertinent negative responses have been documented in the HPI. ROS Other: All systems not noted in ROS Statement are negative. Past Medical History Past Medical History: Hypertension, Myocardial Infarction (AL) Additional Past Medical History / Comment(s): hemorrhoids, AL x2 Last Myocardial Infarction Date:: 2007 History of Any Multi-Drug Resistant Organisms: None Reported Past Surgical History: Heart Catheterization, Orthopedic Surgery Additional Past Surgical History / Comment(s): LT KNEE REPLACEMENT,PTCA Past Anesthesia/Blood Transfusion Reactions: No Reported Reaction Past Psychological History: No Psychological Hx Reported Smoking Status: Never smoker Past Alcohol Use History: None Reported Past Drug Use History: None Reported - Past Family History Mother Family Medical History: Cancer Additional Family Medical History / Comment(s): breast,brain Father Family Medical History: COPD Additional Family Medical History / Comment(s): emphysema General Exam - General Exam Comments Initial Comments: Constitutional: NAD, AOX3, Pt has pleasant affect. HEENT: NC/AT, trachea midline, neck supple, no lymphadenopathy. Posterior pharynx non erythematous, without exudates. External ears appear normal, without discharge. Mucous membranes moist. Eyes PERRLA, EOM intact. There is no scleral icterus. No pallor noted. Cardiopulmonary: RRR, no murmurs, rubs or gallops, no JVD noted. Lungs CTAB in anterior and posterior aguilar. No peripheral edema. Abdominal exam: Abdomen soft and non-distended. Abdomen non-tender to palpation in all 4 quadrants. Bowel sounds active in LLQ. No hepatosplenomegaly. No ecchymosis Neuro: CN II-XII intact. No nuchal rigidity. Kernigs and brudzinskis sign negative. MSK: Mild amount of L paracervical tenerness to palpation. No midline tenderness of cervical spine. No other areas of tenderness to palpation. No posterior calf tenderness bilaterally, homans sign negative bilaterally. Posterior tibialis and radial pulse +2 bilaterally. Sensation intact in upper and lower extremities. Full active ROM in upper and lower extremities, 5/5 stregnth. Limitations: no limitations Course Vital Signs 04/06/18 04/06/18 04/06/18 14:20 16:00 16:30 Temperature 101.7 F H Pulse Rate 95 86 86 Respiratory 22 15 15 Rate Blood Pressure 157/92 169/86 167/90 O2 Sat by Pulse 95 97 96 Oximetry 04/06/18 04/06/18 04/06/18 16:49 17:30 18:00 Temperature 98.7 F Pulse Rate 88 84 Respiratory 22 19 Rate Blood Pressure 159/82 162/82 O2 Sat by Pulse 93 L 93 L Oximetry 04/06/18 04/06/18 18:30 19:00 Temperature Pulse Rate 86 81 Respiratory 17 22 Rate Blood Pressure 146/75 153/80 O2 Sat by Pulse 95 95 Oximetry Medical Decision Making - Medical Decision Making 62-year-old female patient with past medical history of hypertension, prior myocardial infarction, CKD III presents to ED following a fall on 04/02/18. Patient reports that she was walking outside and fell backwards onto her gluteal region. Patient denies any trauma to head or neck. Patient denies a loss of consciousness. Patient reports that she initially felt fine after the fall, however within the next 3 hours she began to develop some neck stiffness worse on her right side. Patient continues to have this complaint. Patient states that the next day on 04/03/18 she began to develop a waxing and waning squeezing sensation on her left pectoral region. Patient continues to have this complaint. Patient states that this feels similar to a complaint that she had in August 2017 for which she underwent a heart catheterization which revealed normal coronaries and a preserved left ejection fraction. Patient has not taken anything for this problem. Patient denies all other complaints. Upon presentation to ED patient had a fever of 101.7F. Vital signs otherwise stable. Physical exam displayed: CN II-XII intact. No nuchal rigidity. Kernigs and brudzinskis sign negative. Mild amount of L paracervical tenerness to palpation. No midline tenderness of cervical spine. No other areas of tenderness to palpation. Laboratory investigations revealed a CBC which displayed leukocytosis, decreased hemoglobin. This study was repeated, to repeat CBCs displayed a leukocytosis, stable hemoglobin of between 11.4 and 10.9. Coagulation studies were within normal limits. D-dimer mildly elevated at 1.31. CMP was non-impressive. Troponin was 0.013. UA was negative. Influenza negative. Occult blood negative. Imaging modalities were conducted. Chest pulmonary angiography did not reveal acute process. Plain film of hips bilaterally with AP pelvis did not reveal acute process. CT of brain and cervical spine without contrast did not reveal acute intracranial abnormality. No acute fracture or malalignment of the cervical spine. Chest x-ray did not display any definitive acute process. Patient was administered 1 g Rocephin prophylactically for fever of unknown origin. Patient heparinized for unstable angina and admitted to hospital for serial troponins and cariology consult. Case discussed in depth and patient seen by Dr. Frost. Pt admitted to Dr. Russell service. - Lab Data Result diagrams: 04/06/18 17:53 04/06/18 15:14 Lab Results 04/06/18 04/06/18 04/06/18 Range/Units 15:14 15:14 15:14 WBC 15.1 H (3.8-10.6) k/uL RBC 2.86 L (3.80-5.40) m/uL Hgb 8.4 L D (11.4-16.0) gm/dL Hct 25.5 L (34.0-46.0) % MCV 89.1 (80.0-100.0) fL MCH 29.2 (25.0-35.0) pg MCHC 32.8 (31.0-37.0) g/dL RDW 13.8 (11.5-15.5) % Plt Count 246 (150-450) k/uL Neutrophils % 70 % Lymphocytes % 15 % Monocytes % 11 % Eosinophils % 1 % Basophils % 0 % Neutrophils # 10.6 H (1.3-7.7) k/uL Lymphocytes # 2.2 (1.0-4.8) k/uL Monocytes # 1.7 H (0-1.0) k/uL Eosinophils # 0.2 (0-0.7) k/uL Basophils # 0.0 (0-0.2) k/uL PT (9.0-12.0) sec INR (<1.2) APTT (22.0-30.0) sec D-Dimer (<0.60) mg/L FEU Sodium 139 (137-145) mmol/L Potassium 3.9 (3.5-5.1) mmol/L Chloride 101 (98-107) mmol/L Carbon Dioxide 32 H (22-30) mmol/L Anion Gap 6 mmol/L BUN 15 (7-17) mg/dL Creatinine 1.19 H (0.52-1.04) mg/dL Est GFR (CKD-EPI)AfAm 57 (>60 ml/min/1.73 sqM) Est GFR (CKD-EPI)NonAf 49 (>60 ml/min/1.73 sqM) Glucose 92 (74-99) mg/dL Plasma Lactic Acid Kory 1.1 (0.7-2.0) mmol/L Calcium 9.0 (8.4-10.2) mg/dL Magnesium 1.8 (1.6-2.3) mg/dL Total Bilirubin 1.1 (0.2-1.3) mg/dL AST 35 (14-36) U/L ALT 41 (9-52) U/L Alkaline Phosphatase 94 (38-126) U/L Troponin I (0.000-0.034) ng/mL Total Protein 6.8 (6.3-8.2) g/dL Albumin 3.9 (3.5-5.0) g/dL Urine Color Urine Appearance (Clear) Urine pH (5.0-8.0) Ur Specific [place] (1.001-1.035) Urine Protein (Negative) Urine Glucose (UA) (Negative) Urine Ketones (Negative) Urine Blood (Negative) Urine Nitrite (Negative) Urine Bilirubin (Negative) Urine Urobilinogen (<2.0) mg/dL Ur Leukocyte Esterase (Negative) Urine RBC (0-5) /hpf Urine WBC (0-5) /hpf Ur Squamous Epith Cells (0-4) /hpf Urine Mucus (None) /hpf Stool Occult Blood (Negative) Influenza Type A RNA (Not Detectd) Influenza Type B (PCR) (Not Detectd) 04/06/18 04/06/18 04/06/18 Range/Units 15:14 15:14 15:14 WBC (3.8-10.6) k/uL RBC (3.80-5.40) m/uL Hgb (11.4-16.0) gm/dL Hct (34.0-46.0) % MCV (80.0-100.0) fL MCH (25.0-35.0) pg MCHC (31.0-37.0) g/dL RDW (11.5-15.5) % Plt Count (150-450) k/uL Neutrophils % % Lymphocytes % % Monocytes % % Eosinophils % % Basophils % % Neutrophils # (1.3-7.7) k/uL Lymphocytes # (1.0-4.8) k/uL Monocytes # (0-1.0) k/uL Eosinophils # (0-0.7) k/uL Basophils # (0-0.2) k/uL PT 10.3 (9.0-12.0) sec INR 1.0 (<1.2) APTT 22.8 (22.0-30.0) sec D-Dimer 1.31 H (<0.60) mg/L FEU Sodium (137-145) mmol/L Potassium (3.5-5.1) mmol/L Chloride (98-107) mmol/L Carbon Dioxide (22-30) mmol/L Anion Gap mmol/L BUN (7-17) mg/dL Creatinine (0.52-1.04) mg/dL Est GFR (CKD-EPI)AfAm (>60 ml/min/1.73 sqM) Est GFR (CKD-EPI)NonAf (>60 ml/min/1.73 sqM) Glucose (74-99) mg/dL Plasma Lactic Acid Kory (0.7-2.0) mmol/L Calcium (8.4-10.2) mg/dL Magnesium (1.6-2.3) mg/dL Total Bilirubin (0.2-1.3) mg/dL AST (14-36) U/L ALT (9-52) U/L Alkaline Phosphatase (38-126) U/L Troponin I 0.013 (0.000-0.034) ng/mL Total Protein (6.3-8.2) g/dL Albumin (3.5-5.0) g/dL Urine Color Urine Appearance (Clear) Urine pH (5.0-8.0) Ur Specific [place] (1.001-1.035) Urine Protein (Negative) Urine Glucose (UA) (Negative) Urine Ketones (Negative) Urine Blood (Negative) Urine Nitrite (Negative) Urine Bilirubin (Negative) Urine Urobilinogen (<2.0) mg/dL Ur Leukocyte Esterase (Negative) Urine RBC (0-5) /hpf Urine WBC (0-5) /hpf Ur Squamous Epith Cells (0-4) /hpf Urine Mucus (None) /hpf Stool Occult Blood (Negative) Influenza Type A RNA Not Detected (Not Detectd) Influenza Type B (PCR) Not Detected (Not Detectd) 04/06/18 04/06/18 04/06/18 Range/Units 16:34 17:05 17:10 WBC 9.8 (3.8-10.6) k/uL RBC 3.80 (3.80-5.40) m/uL Hgb 11.4 D (11.4-16.0) gm/dL Hct 33.9 L (34.0-46.0) % MCV 89.2 (80.0-100.0) fL MCH 30.0 (25.0-35.0) pg MCHC 33.6 (31.0-37.0) g/dL RDW 13.7 (11.5-15.5) % Plt Count 161 (150-450) k/uL Neutrophils % 70 % Lymphocytes % 15 % Monocytes % 10 % Eosinophils % 1 % Basophils % 0 % Neutrophils # 6.9 (1.3-7.7) k/uL Lymphocytes # 1.5 (1.0-4.8) k/uL Monocytes # 1.0 (0-1.0) k/uL Eosinophils # 0.1 (0-0.7) k/uL Basophils # 0.0 (0-0.2) k/uL PT (9.0-12.0) sec INR (<1.2) APTT (22.0-30.0) sec D-Dimer (<0.60) mg/L FEU Sodium (137-145) mmol/L Potassium (3.5-5.1) mmol/L Chloride (98-107) mmol/L Carbon Dioxide (22-30) mmol/L Anion Gap mmol/L BUN (7-17) mg/dL Creatinine (0.52-1.04) mg/dL Est GFR (CKD-EPI)AfAm (>60 ml/min/1.73 sqM) Est GFR (CKD-EPI)NonAf (>60 ml/min/1.73 sqM) Glucose (74-99) mg/dL Plasma Lactic Acid Kory (0.7-2.0) mmol/L Calcium (8.4-10.2) mg/dL Magnesium (1.6-2.3) mg/dL Total Bilirubin (0.2-1.3) mg/dL AST (14-36) U/L ALT (9-52) U/L Alkaline Phosphatase (38-126) U/L Troponin I (0.000-0.034) ng/mL Total Protein (6.3-8.2) g/dL Albumin (3.5-5.0) g/dL Urine Color Yellow Urine Appearance Clear (Clear) Urine pH 6.0 (5.0-8.0) Ur Specific [place] 1.021 (1.001-1.035) Urine Protein 1+ H (Negative) Urine Glucose (UA) Negative (Negative) Urine Ketones Negative (Negative) Urine Blood Negative (Negative) Urine Nitrite Negative (Negative) Urine Bilirubin Negative (Negative) Urine Urobilinogen 2.0 (<2.0) mg/dL Ur Leukocyte Esterase Negative (Negative) Urine RBC <1 (0-5) /hpf Urine WBC 1 (0-5) /hpf Ur Squamous Epith Cells <1 (0-4) /hpf Urine Mucus Rare H (None) /hpf Stool Occult Blood Negative (Negative) Influenza Type A RNA (Not Detectd) Influenza Type B (PCR) (Not Detectd) 04/06/18 Range/Units 17:53 WBC 9.0 (3.8-10.6) k/uL RBC 3.65 L (3.80-5.40) m/uL Hgb 10.9 L (11.4-16.0) gm/dL Hct 32.9 L (34.0-46.0) % MCV 90.3 (80.0-100.0) fL MCH 29.8 (25.0-35.0) pg MCHC 33.0 (31.0-37.0) g/dL RDW 13.9 (11.5-15.5) % Plt Count 157 (150-450) k/uL Neutrophils % 70 % Lymphocytes % 16 % Monocytes % 9 % Eosinophils % 1 % Basophils % 0 % Neutrophils # 6.3 (1.3-7.7) k/uL Lymphocytes # 1.5 (1.0-4.8) k/uL Monocytes # 0.8 (0-1.0) k/uL Eosinophils # 0.1 (0-0.7) k/uL Basophils # 0.0 (0-0.2) k/uL PT (9.0-12.0) sec INR (<1.2) APTT (22.0-30.0) sec D-Dimer (<0.60) mg/L FEU Sodium (137-145) mmol/L Potassium (3.5-5.1) mmol/L Chloride (98-107) mmol/L Carbon Dioxide (22-30) mmol/L Anion Gap mmol/L BUN (7-17) mg/dL Creatinine (0.52-1.04) mg/dL Est GFR (CKD-EPI)AfAm (>60 ml/min/1.73 sqM) Est GFR (CKD-EPI)NonAf (>60 ml/min/1.73 sqM) Glucose (74-99) mg/dL Plasma Lactic Acid Kory (0.7-2.0) mmol/L Calcium (8.4-10.2) mg/dL Magnesium (1.6-2.3) mg/dL Total Bilirubin (0.2-1.3) mg/dL AST (14-36) U/L ALT (9-52) U/L Alkaline Phosphatase (38-126) U/L Troponin I (0.000-0.034) ng/mL Total Protein (6.3-8.2) g/dL Albumin (3.5-5.0) g/dL Urine Color Urine Appearance (Clear) Urine pH (5.0-8.0) Ur Specific [place] (1.001-1.035) Urine Protein (Negative) Urine Glucose (UA) (Negative) Urine Ketones (Negative) Urine Blood (Negative) Urine Nitrite (Negative) Urine Bilirubin (Negative) Urine Urobilinogen (<2.0) mg/dL Ur Leukocyte Esterase (Negative) Urine RBC (0-5) /hpf Urine WBC (0-5) /hpf Ur Squamous Epith Cells (0-4) /hpf Urine Mucus (None) /hpf Stool Occult Blood (Negative) Influenza Type A RNA (Not Detectd) Influenza Type B (PCR) (Not Detectd) Disposition Clinical Impression: Unstable angina, Fever of unknown origin Disposition: ADMITTED IP TO THIS HOSP Condition: Serious Is patient prescribed a controlled substance at d/c from ED?: No Referrals: Johny Edouard DO [Primary Care Provider] - 1-2 days
[2018-04-06 15:45] LABS: Basophils % (A) 0 %; Eosinophils # (A) 0.2 k/uL (0-0.7); Eosinophils % (A) 1 %; HCT 25.5 % (34.0-46.0); Lymphocytes # (A) 2.2 k/uL (1.0-4.8); Lymphocytes % (A) 15 %; MCH 29.2 pg (25.0-35.0); MCHC 32.8 g/dL (31.0-37.0); MCV 89.1 fL (80.0-100.0); Mean Platelet Volume 8.6; Monocytes # (A) 1.7 k/uL (0-1.0); Monocytes % (A) 11 %; Neutrophils # (A) 10.6 k/uL (1.3-7.7); Neutrophils % (A) 70 %; Platelet Count 246 k/uL (150-450); RBC 2.86 m/uL (3.80-5.40); RDW 13.8 % (11.5-15.5); WBC 15.1 k/uL (3.8-10.6)
[2018-04-06 15:52] LABS: HGB 8.4 gm/dL (11.4-16.0)
[2018-04-06 15:54] LABS: Albumin 3.9 g/dL (3.5-5.0); Magnesium 1.8 mg/dL (1.6-2.3); Potassium 3.9 mmol/L (3.5-5.1); Total Bilirubin 1.1 mg/dL (0.2-1.3); Total Protein 6.8 g/dL (6.3-8.2)
--- NOTE | 2018-04-06 15:54 | CT ---
EXAMINATION TYPE: CT brain laila wo con DATE OF EXAM: 04/06/2018 COMPARISON: HISTORY: 62-year-old female with head and neck pain after Fall CT DLP: 1567.8 mGycm Automated exposure control for dose reduction was used. Technique: Examination of the head was done in axial plane without intravenous contrast. Coronal and sagittal reconstructions performed. CT of the cervical spine was obtained in axial plane without intravenous injection of contrast mater ial. Coronal and sagittal reformatted images were obtained from the axial views for evaluation of f ractures, spinal alignment and canal. FINDINGS: Head: There is no evidence of acute intracranial hemorrhage, acute ischemic changes, mass, mass-effect, or extra-axial fluid collection. There is no effacement of cerebral sulci or basal subarachnoid cister ns. There is no hydrocephalus. There is no midline shift. Booth-white matter distinction is preserv ed. Mild to moderate patchy white matter hypodensities in the cerebral hemispheres. Paranasal sinuses and mastoid air cells are pneumatized. Orbits and globes are intact. Cervical spine: No craniocervical junction abnormality, predental space widening, or prevertebral soft tissue swellin g. Degenerative changes of the C1 dens articulation. Reversal of the normal cervical lordosis. Preserved alignment. Moderate to advanced disc/endplate degenerative change from C3 through C7 levels. Disc osteophyte com plex are present in variable mild narrowing of the spinal canal. There is interbody and posterior element ankylosis at C5-C6. No acute fracture of the cervical spine. Variable mild to moderate neural foraminal narrowing throughout. Sagittal and coronal reformatted images confirm above findings. COMBINED IMPRESSION: 1. No acute intracranial abnormality seen. Mild to moderate patchy changes of chronic small vessel is chemic disease. 2. No acute fracture or malalignment of the cervical spine. Moderate spondylotic change particularly from C3 through C7 levels.
[2018-04-06 16:01] LABS: Partial Thromboplastin Time 22.8 sec (22.0-30.0); Prothrombin Time 10.3 sec (9.0-12.0)
[2018-04-06 16:06] LABS: D-Dimer 1.31 mg/L FEU (<0.60)
--- NOTE | 2018-04-06 16:33 | XR ---
EXAMINATION: XR chest 2V DATE AND TIME: 04/06/2018 4:26 PM CLINICAL INDICATION: Chest pain; patient fell on Thursday TECHNIQUE: AP and lateral COMPARISON: 08/20/2017 FINDINGS: The overlying soft tissues are prominent. Upper extremities are superimposed over the field of view o n the lateral projection. Given these limiting visualization factors, the lungs appear to be clear. The pleural spaces are negative. The cardiac silhouette is mildly enlarged. The skeletal structures a nd soft tissues are negative for acute findings. IMPRESSION: NO DEFINITE ACUTE PROCESS.
--- NOTE | 2018-04-06 16:45 | XR ---
PROCEDURE: XR Hip Bilateral and AP pelvis - 5V DATE AND TIME: 04/06/2018 4:27 PM CLINICAL INDICATION: PHH; Pain TECHNIQUE: Department protocol COMPARISON: None FINDINGS: There overlying soft tissues are prominent. There is no fracture or malalignment. The soft tissues are unremarkable. IMPRESSION: NO ACUTE PROCESS.
[2018-04-06 17:26] LABS: Basophils % (A) 0 %; Eosinophils # (A) 0.1 k/uL (0-0.7); Eosinophils % (A) 1 %; HCT 33.9 % (34.0-46.0); Lymphocytes # (A) 1.5 k/uL (1.0-4.8); Lymphocytes % (A) 15 %; MCHC 33.6 g/dL (31.0-37.0); MCV 89.2 fL (80.0-100.0); Mean Platelet Volume 8.2; Monocytes % (A) 10 %; Neutrophils # (A) 6.9 k/uL (1.3-7.7); Neutrophils % (A) 70 %; Platelet Count 161 k/uL (150-450); RDW 13.7 % (11.5-15.5); WBC 9.8 k/uL (3.8-10.6)
[2018-04-06 17:39] LABS: Appearance,Urine Clear (Clear); Bilirubin,Urine Negative (Negative); Blood,Urine Negative (Negative); Color,Urine Yellow; Glucose,Urine (UA) Negative (Negative); Ketones,Urine Negative (Negative); Leukocyte Esterase,Urine Negative (Negative); Mucus,Urine Rare /hpf; Nitrite,Urine Negative (Negative); Protein,Urine 1+ (Negative); RBC,Urine <1 /hpf (0-5); Specific Gravity,Urine 1.021 (1.001-1.035); Squamous Epithelial Cell,Urine <1 /hpf (0-4); WBC,Urine 1 /hpf (0-5)
--- NOTE | 2018-04-06 17:47 | CT ---
EXAMINATION TYPE: CT chest angio for PE with contrast and with 3-D reconstruction renderings DATE OF EXAM: 04/06/2018 COMPARISON: 08/20/2017 HISTORY: chest pain CT DLP: 668.5 mGycm Automated exposure control for dose reduction was used. CONTRAST: 08/20/2017CT Chest for pulmonary embolism performed with with IV Contrast, patient injected w ith 80 mL of Isovue 370. 3-D reconstructions FINDINGS: LUNGS: The lungs are grossly clear, there is no concerning parenchymal mass or nodule identified. T here is no pleural effusion or pneumothorax seen. The tracheobronchial tree is patent. MEDIASTINUM: There is satisfactory enhancement of the pulmonary artery and its branches; there is no CT evidence for pulmonary embolism. Aorta is unremarkable. There are no greater than 1 cm hilar or me diastinal lymph nodes. No cardiomegaly or pericardial effusion is seen. OTHER: No additional significant abnormality is seen. IMPRESSION: No acute processes.
[2018-04-06 18:09] LABS: Basophils % (A) 0 %; Eosinophils # (A) 0.1 k/uL (0-0.7); Eosinophils % (A) 1 %; HCT 32.9 % (34.0-46.0); HGB 10.9 gm/dL (11.4-16.0); Lymphocytes # (A) 1.5 k/uL (1.0-4.8); Lymphocytes % (A) 16 %; MCH 29.8 pg (25.0-35.0); MCV 90.3 fL (80.0-100.0); Mean Platelet Volume 8.1; Monocytes # (A) 0.8 k/uL (0-1.0); Monocytes % (A) 9 %; Neutrophils # (A) 6.3 k/uL (1.3-7.7); Neutrophils % (A) 70 %; Platelet Count 157 k/uL (150-450); RBC 3.65 m/uL (3.80-5.40); RDW 13.9 % (11.5-15.5)
[2018-04-06 18:11] LABS: HGB 11.4 gm/dL (11.4-16.0)
[2018-04-06] MEDS ORDERED: HEPARIN SODIUM,PORCINE 5,000 UNIT/ML 1 ML VIAL IV PRN (18:44)
[2018-04-06] MEDS ORDERED: HEPARIN SODIUM,PORCINE 5,000 UNIT/ML 1 ML VIAL IV ONE (18:44)
[2018-04-06] MEDS ORDERED: HEPARIN SOD,PORK IN 0.45% NACL 25,000 UNIT in 0.45% NACL 1 250ML.BAG IV SCH (18:45)
[2018-04-06] MEDS ORDERED: NITROGLYCERIN SL TABS 0.4 MG TAB SUBLINGUAL PRN (18:47)
[2018-04-06] MEDS ORDERED: MORPHINE SULFATE 2 MG/ML SYRINGE IVP PRN (18:47)
[2018-04-06 19:14] LABS: Basophils % (A) 0 %; Eosinophils # (A) 0.1 k/uL (0-0.7); Eosinophils % (A) 1 %; HCT 33.8 % (34.0-46.0); HGB 11.2 gm/dL (11.4-16.0); Lymphocytes # (A) 1.6 k/uL (1.0-4.8); Lymphocytes % (A) 17 %; MCH 30.1 pg (25.0-35.0); MCHC 33.1 g/dL (31.0-37.0); MCV 90.7 fL (80.0-100.0); Mean Platelet Volume 8.2; Monocytes # (A) 0.8 k/uL (0-1.0); Monocytes % (A) 9 %; Neutrophils # (A) 6.5 k/uL (1.3-7.7); Neutrophils % (A) 70 %; Platelet Count 168 k/uL (150-450); RBC 3.72 m/uL (3.80-5.40); RDW 13.7 % (11.5-15.5); WBC 9.4 k/uL (3.8-10.6)
--- NOTE | 2018-04-06 19:18 | ED ---
Medical Decision Making - Medical Decision Making EKG not concerning for acute ischemia. - Lab Data Result diagrams: 04/06/18 18:58 04/06/18 15:14 Lab Results 04/06/18 04/06/18 04/06/18 Range/Units 15:14 15:14 15:14 WBC 15.1 H (3.8-10.6) k/uL RBC 2.86 L (3.80-5.40) m/uL Hgb 8.4 L D (11.4-16.0) gm/dL Hct 25.5 L (34.0-46.0) % MCV 89.1 (80.0-100.0) fL MCH 29.2 (25.0-35.0) pg MCHC 32.8 (31.0-37.0) g/dL RDW 13.8 (11.5-15.5) % Plt Count 246 (150-450) k/uL Neutrophils % 70 % Lymphocytes % 15 % Monocytes % 11 % Eosinophils % 1 % Basophils % 0 % Neutrophils # 10.6 H (1.3-7.7) k/uL Lymphocytes # 2.2 (1.0-4.8) k/uL Monocytes # 1.7 H (0-1.0) k/uL Eosinophils # 0.2 (0-0.7) k/uL Basophils # 0.0 (0-0.2) k/uL PT (9.0-12.0) sec INR (<1.2) APTT (22.0-30.0) sec D-Dimer (<0.60) mg/L FEU Sodium 139 (137-145) mmol/L Potassium 3.9 (3.5-5.1) mmol/L Chloride 101 (98-107) mmol/L Carbon Dioxide 32 H (22-30) mmol/L Anion Gap 6 mmol/L BUN 15 (7-17) mg/dL Creatinine 1.19 H (0.52-1.04) mg/dL Est GFR (CKD-EPI)AfAm 57 (>60 ml/min/1.73 sqM) Est GFR (CKD-EPI)NonAf 49 (>60 ml/min/1.73 sqM) Glucose 92 (74-99) mg/dL Plasma Lactic Acid Kory 1.1 (0.7-2.0) mmol/L Calcium 9.0 (8.4-10.2) mg/dL Magnesium 1.8 (1.6-2.3) mg/dL Total Bilirubin 1.1 (0.2-1.3) mg/dL AST 35 (14-36) U/L ALT 41 (9-52) U/L Alkaline Phosphatase 94 (38-126) U/L Troponin I (0.000-0.034) ng/mL Total Protein 6.8 (6.3-8.2) g/dL Albumin 3.9 (3.5-5.0) g/dL Urine Color Urine Appearance (Clear) Urine pH (5.0-8.0) Ur Specific Blackburn (1.001-1.035) Urine Protein (Negative) Urine Glucose (UA) (Negative) Urine Ketones (Negative) Urine Blood (Negative) Urine Nitrite (Negative) Urine Bilirubin (Negative) Urine Urobilinogen (<2.0) mg/dL Ur Leukocyte Esterase (Negative) Urine RBC (0-5) /hpf Urine WBC (0-5) /hpf Ur Squamous Epith Cells (0-4) /hpf Urine Mucus (None) /hpf Stool Occult Blood (Negative) Influenza Type A RNA (Not Detectd) Influenza Type B (PCR) (Not Detectd) 04/06/18 04/06/18 04/06/18 Range/Units 15:14 15:14 15:14 WBC (3.8-10.6) k/uL RBC (3.80-5.40) m/uL Hgb (11.4-16.0) gm/dL Hct (34.0-46.0) % MCV (80.0-100.0) fL MCH (25.0-35.0) pg MCHC (31.0-37.0) g/dL RDW (11.5-15.5) % Plt Count (150-450) k/uL Neutrophils % % Lymphocytes % % Monocytes % % Eosinophils % % Basophils % % Neutrophils # (1.3-7.7) k/uL Lymphocytes # (1.0-4.8) k/uL Monocytes # (0-1.0) k/uL Eosinophils # (0-0.7) k/uL Basophils # (0-0.2) k/uL PT 10.3 (9.0-12.0) sec INR 1.0 (<1.2) APTT 22.8 (22.0-30.0) sec D-Dimer 1.31 H (<0.60) mg/L FEU Sodium (137-145) mmol/L Potassium (3.5-5.1) mmol/L Chloride (98-107) mmol/L Carbon Dioxide (22-30) mmol/L Anion Gap mmol/L BUN (7-17) mg/dL Creatinine (0.52-1.04) mg/dL Est GFR (CKD-EPI)AfAm (>60 ml/min/1.73 sqM) Est GFR (CKD-EPI)NonAf (>60 ml/min/1.73 sqM) Glucose (74-99) mg/dL Plasma Lactic Acid Kory (0.7-2.0) mmol/L Calcium (8.4-10.2) mg/dL Magnesium (1.6-2.3) mg/dL Total Bilirubin (0.2-1.3) mg/dL AST (14-36) U/L ALT (9-52) U/L Alkaline Phosphatase (38-126) U/L Troponin I 0.013 (0.000-0.034) ng/mL Total Protein (6.3-8.2) g/dL Albumin (3.5-5.0) g/dL Urine Color Urine Appearance (Clear) Urine pH (5.0-8.0) Ur Specific Blackburn (1.001-1.035) Urine Protein (Negative) Urine Glucose (UA) (Negative) Urine Ketones (Negative) Urine Blood (Negative) Urine Nitrite (Negative) Urine Bilirubin (Negative) Urine Urobilinogen (<2.0) mg/dL Ur Leukocyte Esterase (Negative) Urine RBC (0-5) /hpf Urine WBC (0-5) /hpf Ur Squamous Epith Cells (0-4) /hpf Urine Mucus (None) /hpf Stool Occult Blood (Negative) Influenza Type A RNA Not Detected (Not Detectd) Influenza Type B (PCR) Not Detected (Not Detectd) 04/06/18 04/06/18 04/06/18 Range/Units 16:34 17:05 17:10 WBC 9.8 (3.8-10.6) k/uL RBC 3.80 (3.80-5.40) m/uL Hgb 11.4 D (11.4-16.0) gm/dL Hct 33.9 L (34.0-46.0) % MCV 89.2 (80.0-100.0) fL MCH 30.0 (25.0-35.0) pg MCHC 33.6 (31.0-37.0) g/dL RDW 13.7 (11.5-15.5) % Plt Count 161 (150-450) k/uL Neutrophils % 70 % Lymphocytes % 15 % Monocytes % 10 % Eosinophils % 1 % Basophils % 0 % Neutrophils # 6.9 (1.3-7.7) k/uL Lymphocytes # 1.5 (1.0-4.8) k/uL Monocytes # 1.0 (0-1.0) k/uL Eosinophils # 0.1 (0-0.7) k/uL Basophils # 0.0 (0-0.2) k/uL PT (9.0-12.0) sec INR (<1.2) APTT (22.0-30.0) sec D-Dimer (<0.60) mg/L FEU Sodium (137-145) mmol/L Potassium (3.5-5.1) mmol/L Chloride (98-107) mmol/L Carbon Dioxide (22-30) mmol/L Anion Gap mmol/L BUN (7-17) mg/dL Creatinine (0.52-1.04) mg/dL Est GFR (CKD-EPI)AfAm (>60 ml/min/1.73 sqM) Est GFR (CKD-EPI)NonAf (>60 ml/min/1.73 sqM) Glucose (74-99) mg/dL Plasma Lactic Acid Kory (0.7-2.0) mmol/L Calcium (8.4-10.2) mg/dL Magnesium (1.6-2.3) mg/dL Total Bilirubin (0.2-1.3) mg/dL AST (14-36) U/L ALT (9-52) U/L Alkaline Phosphatase (38-126) U/L Troponin I (0.000-0.034) ng/mL Total Protein (6.3-8.2) g/dL Albumin (3.5-5.0) g/dL Urine Color Yellow Urine Appearance Clear (Clear) Urine pH 6.0 (5.0-8.0) Ur Specific Blackburn 1.021 (1.001-1.035) Urine Protein 1+ H (Negative) Urine Glucose (UA) Negative (Negative) Urine Ketones Negative (Negative) Urine Blood Negative (Negative) Urine Nitrite Negative (Negative) Urine Bilirubin Negative (Negative) Urine Urobilinogen 2.0 (<2.0) mg/dL Ur Leukocyte Esterase Negative (Negative) Urine RBC <1 (0-5) /hpf Urine WBC 1 (0-5) /hpf Ur Squamous Epith Cells <1 (0-4) /hpf Urine Mucus Rare H (None) /hpf Stool Occult Blood Negative (Negative) Influenza Type A RNA (Not Detectd) Influenza Type B (PCR) (Not Detectd) 04/06/18 04/06/18 Range/Units 17:53 18:58 WBC 9.0 9.4 (3.8-10.6) k/uL RBC 3.65 L 3.72 L (3.80-5.40) m/uL Hgb 10.9 L 11.2 L (11.4-16.0) gm/dL Hct 32.9 L 33.8 L (34.0-46.0) % MCV 90.3 90.7 (80.0-100.0) fL MCH 29.8 30.1 (25.0-35.0) pg MCHC 33.0 33.1 (31.0-37.0) g/dL RDW 13.9 13.7 (11.5-15.5) % Plt Count 157 168 (150-450) k/uL Neutrophils % 70 70 % Lymphocytes % 16 17 % Monocytes % 9 9 % Eosinophils % 1 1 % Basophils % 0 0 % Neutrophils # 6.3 6.5 (1.3-7.7) k/uL Lymphocytes # 1.5 1.6 (1.0-4.8) k/uL Monocytes # 0.8 0.8 (0-1.0) k/uL Eosinophils # 0.1 0.1 (0-0.7) k/uL Basophils # 0.0 0.0 (0-0.2) k/uL PT (9.0-12.0) sec INR (<1.2) APTT (22.0-30.0) sec D-Dimer (<0.60) mg/L FEU Sodium (137-145) mmol/L Potassium (3.5-5.1) mmol/L Chloride (98-107) mmol/L Carbon Dioxide (22-30) mmol/L Anion Gap mmol/L BUN (7-17) mg/dL Creatinine (0.52-1.04) mg/dL Est GFR (CKD-EPI)AfAm (>60 ml/min/1.73 sqM) Est GFR (CKD-EPI)NonAf (>60 ml/min/1.73 sqM) Glucose (74-99) mg/dL Plasma Lactic Acid Kory (0.7-2.0) mmol/L Calcium (8.4-10.2) mg/dL Magnesium (1.6-2.3) mg/dL Total Bilirubin (0.2-1.3) mg/dL AST (14-36) U/L ALT (9-52) U/L Alkaline Phosphatase (38-126) U/L Troponin I (0.000-0.034) ng/mL Total Protein (6.3-8.2) g/dL Albumin (3.5-5.0) g/dL Urine Color Urine Appearance (Clear) Urine pH (5.0-8.0) Ur Specific Blackburn (1.001-1.035) Urine Protein (Negative) Urine Glucose (UA) (Negative) Urine Ketones (Negative) Urine Blood (Negative) Urine Nitrite (Negative) Urine Bilirubin (Negative) Urine Urobilinogen (<2.0) mg/dL Ur Leukocyte Esterase (Negative) Urine RBC (0-5) /hpf Urine WBC (0-5) /hpf Ur Squamous Epith Cells (0-4) /hpf Urine Mucus (None) /hpf Stool Occult Blood (Negative) Influenza Type A RNA (Not Detectd) Influenza Type B (PCR) (Not Detectd) - EKG Data -: EKG Interpreted by Me (and dr walker) EKG Comments: Ventricular rate 87, NM interval 192, QRS 92, QT/QTC 374/450. Normal sinus rhythm normal EKG. No concern for acute ischemia. No significant change with comparison to prior EKG. Disposition Clinical Impression: Unstable angina, Fever of unknown origin Disposition: ADMITTED IP TO THIS HOSP Condition: Serious Is patient prescribed a controlled substance at d/c from ED?: No Referrals: Johny Edouard DO [Primary Care Provider] - 1-2 days
[2018-04-06 19:23] LABS: Partial Thromboplastin Time 25.6 sec (22.0-30.0); Prothrombin Time 10.4 sec (9.0-12.0)
[2018-04-06 19:26] LABS: Calcium 8.2 mg/dL (8.4-10.2); Magnesium 1.7 mg/dL (1.6-2.3); Potassium 3.4 mmol/L (3.5-5.1); Total Bilirubin 0.9 mg/dL (0.2-1.3); Total Protein 5.5 g/dL (6.3-8.2)
[2018-04-06 19:37] LABS: Creatine Kinase MB 0.5 ng/mL (0.0-2.4); Troponin I 0.02 ng/mL (0.000-0.034)
[2018-04-06 19:39] LABS: D-Dimer 1.37 mg/L FEU (<0.60)
[2018-04-06 22:00] VITALS: BMI 43.4
[2018-04-06] MEDS ORDERED: FUROSEMIDE 40 MG TAB PO PRN (22:16)
[2018-04-06] MEDS ORDERED: FERROUS SULFATE 325 MG TAB PO SCH (22:30)
[2018-04-06] MEDS ORDERED: NON-FORMULARY DRUG (Glucosam/Chon-Msm1/C/Mang/Bosw [Glucosamine-Chondroitin Tablet] 1 TAB) PO SCH (22:30)
[2018-04-06] MEDS: CHOLECALCIFEROL 1,000 UNIT TAB PO SCH (22:53)
[2018-04-06] MEDS: CARVEDILOL 12.5 MG TAB PO SCH (22:53)
[2018-04-06] MEDS: amLODIPine 2.5 MG TAB PO SCH (22:54)
[2018-04-06] MEDS: LISINOPRIL 10 MG TAB PO SCH (22:54)
[2018-04-06] MEDS: ALLOPURINOL 100 MG TAB PO SCH (22:54)
[2018-04-06] MEDS: ATORVASTATIN 20 MG TAB PO SCH (22:54)
[2018-04-07 02:46] LABS: Creatine Kinase MB 0.5 ng/mL (0.0-2.4); Troponin I 0.018 ng/mL (0.000-0.034)
[2018-04-07] MEDS: CARVEDILOL 12.5 MG TAB PO SCH ×2 (06:10→17:22)
[2018-04-07] MEDS: CHOLECALCIFEROL 1,000 UNIT TAB PO SCH ×2 (07:48→19:48)
[2018-04-07 08:05] LABS: Basophils % (A) 0 %; Eosinophils # (A) 0.2 k/uL (0-0.7); Eosinophils % (A) 2 %; HCT 27.5 % (34.0-46.0); Lymphocytes # (A) 1.7 k/uL (1.0-4.8); Lymphocytes % (A) 21 %; MCH 30.7 pg (25.0-35.0); MCHC 33.3 g/dL (31.0-37.0); MCV 92.4 fL (80.0-100.0); Mean Platelet Volume 7.7; Monocytes # (A) 0.7 k/uL (0-1.0); Monocytes % (A) 8 %; Neutrophils # (A) 5.3 k/uL (1.3-7.7); Neutrophils % (A) 66 %; Platelet Count 187 k/uL (150-450); RBC 2.98 m/uL (3.80-5.40); RDW 13.6 % (11.5-15.5)
[2018-04-07 08:14] LABS: Calcium 8.4 mg/dL (8.4-10.2); Potassium 3.7 mmol/L (3.5-5.1); Total Bilirubin 0.7 mg/dL (0.2-1.3); Total Protein 5.5 g/dL (6.3-8.2)
[2018-04-07 08:20] LABS: HGB 9.2 gm/dL (11.4-16.0)
--- NOTE | 2018-04-07 08:42 | P.CRDCN ---
History of Present Illness Consult date: 04/07/18 Requesting physician: Stephania Connelly Consult reason: chest pain Chief complaint: Fall History of present illness: This is a pleasant 62-year-old female with history of hypertension, hyperlipidemia, history of kidney disease following a bout of influenza, nonsmoker, nondiabetic, who presented to the emergency room a few days after experiencing a fall. According to the patient she slipped and fell on the ice, landing on her gluteal region. According to the patient, the next couple of days after the fall she was experiencing severe neck stiffness and discomfort in her left shoulder and chest area. She states that each time that she would move even a little of that she would have severe pain. He could not turn her head one way or the other. Cardiology is consulted because of the chest pain. Patient did have a heart cath in 2018 which revealed normal coronary arteries. Chest x-ray was performed which did not reveal any acute process. CAT scan of the head and spine did not reveal any acute intracranial abnormality. No acute fracture of the spine. X-ray of the hip and pelvis was performed which did not reveal any acute process. CTA of the chest did not reveal any acute process. EKG shows normal sinus rhythm with no acute changes. Blood pressure on arrival here 156/90 with a heart rate in the 90s, temperature 90.5 on room air. She did have a temperature of 101 on arrival. Temperature this morning 98.9, blood pressure 124/70 with a heart rate in the 70s, 94% on room air. Admission labs, white blood cell count 9.8, hemoglobin 11.4, platelet count 161. Labs this morning, white blood cell count 8.0, hemoglobin 9.2, platelet count 187. D- dimer 1.37. Sodium 142, potassium 3.7, BUN 14 and creatinine 1.1. Magnesium 1.7. Troponins 0.020, 0.018, 0.012. At the time of my examination this morning , patient continues to have severe stiffness in her neck, just asking her to sit forward on examination, causes excruciating pain in her neck, and she does have associated pain in the left shoulder and upper chest region very musculoskeletal in nature. Past Medical History Past Medical History: Hypertension, Myocardial Infarction (ME) Additional Past Medical History / Comment(s): hemorrhoids, ME x2 Last Myocardial Infarction Date:: 2007 History of Any Multi-Drug Resistant Organisms: None Reported Past Surgical History: Heart Catheterization, Orthopedic Surgery Additional Past Surgical History / Comment(s): LT KNEE REPLACEMENT,PTCA Past Anesthesia/Blood Transfusion Reactions: No Reported Reaction Smoking Status: Never smoker - Past Family History Mother Family Medical History: Cancer Additional Family Medical History / Comment(s): breast,brain Father Family Medical History: COPD Additional Family Medical History / Comment(s): emphysema Medications and Allergies Home Medications Medication Instructions Recorded Confirmed Type Glucosam/Jonah-Msm1/C/Thad/Bosw 1 tab PO HS 09/24/16 04/06/18 History [Glucosamine-Chondroitin Tablet] Atorvastatin [Lipitor] 20 mg PO HS 08/20/17 04/06/18 History Allopurinol [Zyloprim] 100 mg PO HS 04/06/18 04/06/18 History Aspirin 81 mg PO HS 04/06/18 04/06/18 History Carvedilol [Coreg] 25 mg PO BID 04/06/18 04/06/18 History Cholecalciferol (Vitamin D3) 2,000 unit PO BID 04/06/18 04/06/18 History [Vitamin D3] Ferrous Sulfate [Feosol] 325 mg PO Q48H 04/06/18 04/06/18 History Furosemide [Lasix] 40 mg PO HS PRN 04/06/18 04/06/18 History Lisinopril 10 mg PO HS 04/06/18 04/06/18 History amLODIPine [Norvasc] 2.5 mg PO HS 04/06/18 04/06/18 History Allergies Allergy/AdvReac Type Severity Reaction Status Date / Time No Known Allergies Allergy Verified 04/06/18 15:48 Physical Exam Vitals: Vital Signs Temp Pulse Pulse Resp BP BP Pulse Ox 04/07/18 07:52 79 17 04/07/18 07:35 98.9 F 79 17 124/78 94 L 04/07/18 03:35 98.2 F 85 18 155/79 97 04/06/18 23:18 98 F 83 18 145/76 96 04/06/18 21:55 98 F 81 18 159/87 95 04/06/18 21:36 88 16 150/79 100 04/06/18 19:00 81 22 153/80 95 04/06/18 18:30 86 17 146/75 95 04/06/18 18:00 84 19 162/82 93 L 04/06/18 17:30 88 22 159/82 93 L 04/06/18 16:49 98.7 F 04/06/18 16:30 86 15 167/90 96 04/06/18 16:00 86 15 169/86 97 04/06/18 14:20 101.7 F H 95 22 157/92 95 Intake and Output 04/06/18 04/07/18 04/07/18 22:59 06:59 14:59 Intake Total 69.305 Balance 69.305 Intake: Intake, IV Titration 69.305 Amount Heparin Sod,Pork in 0.45% 69.305 NaCl 25,000 unit In 0.45 % NaCl 1 250ml.bag @ 7.3 UNITS/KG/HR 10.02 mls/hr IV .Q24H [facility] Rx#: [id number] Other: Voiding Method Toilet Toilet # Voids 2 Weight 138.6 kg PHYSICAL EXAMINATION: GENERAL: 62-year-old female complaining of significant neck pain and stiffness morning. HEENT: Head is atraumatic, normocephalic. Pupils equal, round. Sclera anicteric. Conjunctiva are clear. Mucous membranes of the mouth are moist. Neck is supple. There is no elevated jugular venous pressure. No carotid bruit is heard. Significant neck pain and stiffness with minimal movement HEART EXAMINATION: Heart S1, S2 normal. No murmur or gallop heard. CHEST EXAMINATION: Lungs are clear to auscultation and precussion. Left upper chest wall tenderness with movement and on palpation of the chest . ABDOMEN: Soft, obese, nontender. Bowel sounds are heard. No organomegaly noted. EXTREMITIES: 2+ peripheral pulses with no evidence of peripheral edema and no calf tenderness noted. Left shoulder discomfort with movement NEUROLOGIC patient is awake, alert and oriented 3 . . Results 04/07/18 07:11 04/07/18 07:11 Cardiac Enzymes 04/06/18 04/06/18 04/06/18 Range/Units 15:14 15:14 18:50 AST 35 23 (14-36) U/L CK-MB (CK-2) (0.0-2.4) ng/mL Troponin I 0.013 (0.000-0.034) ng/mL 04/06/18 04/07/1804/07/19 Range/Units 18:50 01:09 07:11 AST (14-36) U/L CK-MB (CK-2) 0.5 0.5 (0.0-2.4) ng/mL Troponin I 0.020 0.018 0.012 (0.000-0.034) ng/mL 04/07/18 Range/Units 07:11 AST 22 (14-36) U/L CK-MB (CK-2) (0.0-2.4) ng/mL Troponin I (0.000-0.034) ng/mL Coagulation 04/06/18 04/06/18 04/07/18 Range/Units 15:14 18:50 01:09 PT 10.3 10.4 (9.0-12.0) sec APTT 22.8 25.6 27.3 (22.0-30.0) sec 04/07/18 Range/Units 07:11 PT (9.0-12.0) sec APTT 35.0 H (22.0-30.0) sec Lipids 04/07/18 Range/Units 07:11 Triglycerides 106 (<150) mg/dL Cholesterol 93 (<200) mg/dL HDL Cholesterol 39 L (40-60) mg/dL CBC 04/06/18 04/06/18 04/06/18 Range/Units 15:14 17:05 17:53 WBC 15.1 H 9.8 9.0 (3.8-10.6) k/uL RBC 2.86 L 3.80 3.65 L (3.80-5.40) m/uL Hgb 8.4 L D 11.4 D 10.9 L (11.4-16.0) gm/dL Hct 25.5 L 33.9 L 32.9 L (34.0-46.0) % Plt Count 246 161 157 (150-450) k/uL 04/06/18 04/07/18 Range/Units 18:58 07:11 WBC 9.4 8.0 (3.8-10.6) k/uL RBC 3.72 L 2.98 L (3.80-5.40) m/uL Hgb 11.2 L 9.2 L D (11.4-16.0) gm/dL Hct 33.8 L 27.5 L (34.0-46.0) % Plt Count 168 187 (150-450) k/uL Comprehensive Metabolic Panel 04/06/18 04/06/18 04/07/18 Range/Units 15:14 18:50 07:11 Sodium 139 140 142 (137-145) mmol/L Potassium 3.9 3.4 L 3.7 (3.5-5.1) mmol/L Chloride 101 105 106 (98-107) mmol/L Carbon Dioxide 32 H 28 32 H (22-30) mmol/L BUN 15 14 14 (7-17) mg/dL Creatinine 1.19 H 1.11 H 1.10 H (0.52-1.04) mg/dL Glucose 92 102 H 107 H (74-99) mg/dL Calcium 9.0 8.2 L 8.4 (8.4-10.2) mg/dL AST 35 23 22 (14-36) U/L ALT 41 31 42 (9-52) U/L Alkaline Phosphatase 94 84 81 (38-126) U/L Total Protein 6.8 5.5 L 5.5 L (6.3-8.2) g/dL Albumin 3.9 3.0 L 3.0 L (3.5-5.0) g/dL Current Medications Generic Name Dose Route Start Last Admin Trade Name Freq PRN Reason Stop Dose Admin Acetaminophen 650 mg 04/06/18 18:47 Tylenol Tab PO Q4HR PRN Pain Allopurinol 100 mg 04/06/18 22:30 04/06/18 22:54 Zyloprim PO 100 mg HS [facility] Administration Amlodipine Besylate 2.5 mg 04/06/18 22:30 04/06/18 22:54 Norvasc PO 2.5 mg HS [facility] Administration Aspirin 325 mg 04/07/18 09:00 04/07/18 07:48 Aspirin PO 325 mg DAILY [facility] Administration Atorvastatin Calcium 20 mg 04/06/18 22:30 04/06/18 22:54 Lipitor PO 20 mg HS [facility] Administration Carvedilol 25 mg 04/06/18 22:30 04/07/18 06:10 Coreg PO 25 mg BID-W/MEALS JAME Administration Cholecalciferol 2,000 unit 04/06/18 22:30 04/07/18 07:48 Vitamin D3 PO 2,000 unit BID JAME Administration Ferrous Sulfate 325 mg 04/06/18 22:30 04/06/18 22:53 Feosol PO Not Given Q48H [facility] Furosemide 40 mg 04/06/18 22:16 04/06/18 22:54 Lasix PO 40 mg HS PRN Administration Edema Heparin Sodium (Porcine) 0 unit 04/06/18 18:44 Heparin IV PER PROTOCOL PRN Low PTT Protocol Heparin Sodium/Sodium Chloride 250 mls @ 10.02 mls/hr 04/06/18 18:45 02:20 25,000 unit/ Sodium Chloride IV 10.3 units/kg/hr .Q24H [facility] 14.14 mls/hr Titration Protocol 7.3 UNITS/KG/HR Lisinopril 10 mg 04/06/18 22:30 04/06/18 22:54 Zestril PO 10 mg HS [facility] Administration Morphine Sulfate 2 mg 04/06/18 18:47 04/06/18 22:55 Morphine Sulfate (Inj) IVP 2 mg Q6HR PRN Administration Pain Nitroglycerin 0.4 mg 04/06/18 18:47 Nitrostat SUBLINGUAL Q5M PRN Chest Pain Intake and Output 04/06/18 04/07/18 04/07/18 22:59 06:59 14:59 Intake Total 69.305 Balance 69.305 Intake: Intake, IV Titration 69.305 Amount Heparin Sod,Pork in 0.45% 69.305 NaCl 25,000 unit In 0.45 % NaCl 1 250ml.bag @ 7.3 UNITS/KG/HR 10.02 mls/hr IV .Q24H [facility] Rx#: [id number] Other: Voiding Method Toilet Toilet # Voids 2 Weight 138.6 kg 04/07/18 07:11 04/07/18 07:11 EKG Interpretations (text) EKG shows a normal sinus rhythm with no acute changes. Assessment and Plan Plan: Assessment and plan #1 status post slip and fall with significant neck stiffness and pain, left shoulder and upper chest pain musculoskeletal in nature. Chest discomfort very atypical for acute coronary syndrome. Troponins 0.020, 0.018, 0.012. EKG shows normal sinus rhythm with no acute changes. Patient underwent a cardiac catheterization in 2018 which revealed normal coronary arteries. Normal LV function at that time. #2 fever with elevated white blood cell count exact etiology unknown. #3 abnormal d-dimer, CT of the chest negative for pulmonary embolism. #4 anemia, hemoglobin on admission 11.4, 9.2 this morning. #5 hyperlipidemia #6 hypertension #7 history of kidney disease status post influenza Plan We will discontinue the IV heparin, decrease aspirin to 81 mg daily, obtain echocardiogram with Doppler study. Further recommendations to follow. DNP note has been reviewed, I agree with a documented findings and plan of care. Patient was seen and examined.
[2018-04-07] MEDS ORDERED: ASPIRIN 325 MG TAB PO SCH (09:00)
[2018-04-07] MEDS: ASPIRIN 81 MG PO SCH (09:13)
[2018-04-07] MEDS: ACETAMINOPHEN TAB 325 MG TAB PO PRN (15:08)
[2018-04-07] MEDS: ATORVASTATIN 20 MG TAB PO SCH (19:48)
[2018-04-07] MEDS: ALLOPURINOL 100 MG TAB PO SCH (19:48)
[2018-04-07] MEDS: LISINOPRIL 10 MG TAB PO SCH (19:48)
[2018-04-07] MEDS: amLODIPine 2.5 MG TAB PO SCH (21:14)
--- NOTE | 2018-04-07 22:27 | P.HPIM ---
History of Present Illness H&P Date: 04/07/18 62-year-old female patient with past medical history of hypertension, prior myocardial infarction, CKD III presents to ED following a fall on 04/02/18. Patient reports that she was walking outside and fell backwards onto her gluteal region. Patient denies any trauma to head or neck. Patient denies a loss of consciousness. Patient reports that she initially felt fine after the fall, however within the next 3 hours she began to develop some neck stiffness worse on her right side. Patient continues to have this complaint. Patient states that the next day on 04/03/18 she began to develop a waxing and waning squeezing sensation on her left pectoral region. Patient continues to have this complaint. Patient states that this feels similar to a complaint that she had in August 2017 for which she underwent a heart catheterization which revealed normal coronaries and a preserved left ejection fraction. Patient has not taken anything for this problem. Patient denies all other complaints.patient underwent x-rays in the emergency department and a spiral CAT scan of the chest. Also serial EKGs and serial enzymes were done which are so far unremarkable. Cardiology note appreciated with a pending echocardiogram evaluation. Pain seems relatively good control at this point Past Medical History Past Medical History: Hypertension, Myocardial Infarction ([place]) Additional Past Medical History / Comment(s): hemorrhoids, [place] x2 Last Myocardial Infarction Date:: 2007 History of Any Multi-Drug Resistant Organisms: None Reported Past Surgical History: Heart Catheterization, Orthopedic Surgery Additional Past Surgical History / Comment(s): LT KNEE REPLACEMENT,PTCA Past Anesthesia/Blood Transfusion Reactions: No Reported Reaction Smoking Status: Never smoker - Past Family History Mother Family Medical History: Cancer Additional Family Medical History / Comment(s): breast,brain Father Family Medical History: COPD Additional Family Medical History / Comment(s): emphysema Medications and Allergies Home Medications Medication Instructions Recorded Confirmed Type Glucosam/Jonah-Msm1/C/Thad/Bosw 1 tab PO HS 09/24/16 04/06/18 History [Glucosamine-Chondroitin Tablet] Atorvastatin [Lipitor] 20 mg PO HS 08/20/17 04/06/18 History Allopurinol [Zyloprim] 100 mg PO HS 04/06/18 04/06/18 History Aspirin 81 mg PO HS 04/06/18 04/06/18 History Carvedilol [Coreg] 25 mg PO BID 04/06/18 04/06/18 History Cholecalciferol (Vitamin D3) 2,000 unit PO BID 04/06/18 04/06/18 History [Vitamin D3] Ferrous Sulfate [Feosol] 325 mg PO Q48H 04/06/18 04/06/18 History Furosemide [Lasix] 40 mg PO HS PRN 04/06/18 04/06/18 History Lisinopril 10 mg PO HS 04/06/18 04/06/18 History amLODIPine [Norvasc] 2.5 mg PO HS 04/06/18 04/06/18 History Allergies Allergy/AdvReac Type Severity Reaction Status Date / Time No Known Allergies Allergy Verified 04/06/18 15:48 Physical Exam Osteopathic Statement: *. No significant issues noted on an osteopathic structural exam other than those noted in the History and Physical/Consult. Vitals: Vital Signs Temp Pulse Resp BP Pulse Ox 04/07/18 20:00 96.9 F L 79 18 119/57 96 04/07/18 15:25 83 17 04/07/18 15:24 98.3 F 83 17 157/80 96 04/07/18 12:07 85 17 04/07/18 11:29 98.2 F 85 17 137/85 95 04/07/18 07:52 79 17 04/07/18 07:35 98.9 F 79 17 124/78 94 L 04/07/18 03:35 98.2 F 85 18 155/79 97 04/06/18 23:18 98 F 83 18 145/76 96 Intake and Output 04/07/18 04/07/18 04/07/18 06:59 14:59 22:59 Intake Total 69.305 1569.280 250 Balance 69.305 1569.280 250 Intake: IV 10 10 Invasive Line 1 10 10 Intake, IV Titration 69.305 99.280 Amount Heparin Sod,Pork in 0.45% 69.305 99.280 NaCl 25,000 unit In 0.45 % NaCl 1 250ml.bag @ 7.3 UNITS/KG/HR 10.02 mls/hr IV .Q24H JAME Rx#: [id number] Oral 1460 240 Other: Voiding Method Toilet Toilet Toilet # Voids 2 1 1 Weight 138.6 kg GENERAL: This is a -62year-old female in no apparent distress at the time of examination. Pleasant and cooperative. HEENT: Head is atraumatic, normocephalic. Pupils are equal, round, and reactive to light. Sclerae anicteric. Conjunctivae are clear. Mucus membranes of the mouth are moist. Neck is supple. RESPIRATORY: Clear to auscultation. No wheezes, rales, or rhonchi. No use of accessory muscles. Patient maintaining oxygen saturation greater than 92%. No chest wall tenderness is noted on palpation or with deep breathing. CARDIOVASCULAR: Regular rate and rhythm. S1 and S2 noted. No systolic or diastolic murmur auscultated. No JVD noted. No S3 or S4 noted. GASTROINTESTINAL: No distention noted. Abdomen soft and round. Normal active bowel sounds auscultated x 4 quadrants. No pain or tenderness noted upon palpation. INTEGUMENTARY: No cyanosis. No jaundice. No rashes noted. No cellulitis noted. EXTREMITIES: 2+ peripheral pulses.+2 peripheral edema. No calf tenderness noted. NEUROLOGIC: Cranial nerves II-XII intact. PSYCHIATRIC: Awake, alert, and oriented X 3. Appropriate affect. Intact judgement and insight. MUSCULOSKELETAL. Positive left shoulder and neck stiffness with no evidence of ecchymosis or visual signs of trauma. Results CBC & Chem 7: 04/07/18 07:11 04/07/18 07:11 Labs: Abnormal Lab Results - Last 24 Hours (Table) 04/07/18 04/07/18 04/07/18 Range/Units 07:11 07:11 07:11 RBC 2.98 L (3.80-5.40) m/uL Hgb 9.2 L D (11.4-16.0) gm/dL Hct 27.5 L (34.0-46.0) % APTT 35.0 H (22.0-30.0) sec Carbon Dioxide 32 H (22-30) mmol/L Creatinine 1.10 H (0.52-1.04) mg/dL Glucose 107 H (74-99) mg/dL Total Protein 5.5 L (6.3-8.2) g/dL Albumin 3.0 L (3.5-5.0) g/dL HDL Cholesterol 39 L (40-60) mg/dL Microbiology - Last 24 Hours (Table) 04/06/18 15:14 Blood Culture - Preliminary Blood No Growth after 24 hours Thrombosis Risk Factor Assmnt - Choose All That Apply Any of the Below Risk Factors Present?: No Other Risk Factors: Yes Each Risk Factor Represents 2 Points: Age 61-74 years Thrombosis Risk Factor Assessment Total Risk Factor Score: 2 Thrombosis Risk Factor Assessment Level: Low Risk Assessment and Plan (1) Unstable angina Current Visit: Yes Status: Acute Code(s): I20.0 - UNSTABLE ANGINA SNOMED Code(s): 5929727 (2) Chest pain Current Visit: No Status: Acute Code(s): R07.9 - CHEST PAIN, UNSPECIFIED SNOMED Code(s): 65093408 (3) Elevated d-dimer Current Visit: No Status: Acute Code(s): R79.89 - OTHER SPECIFIED ABNORMAL FINDINGS OF BLOOD CHEMISTRY SNOMED Code(s): 553319338 Plan: continued cardiology workup if negative plan on discharge and patient by tomorrow morning. Patient is currently stable Time with Patient: Greater than 30
[2018-04-08] MEDS: CARVEDILOL 12.5 MG TAB PO SCH (06:21)
[2018-04-08 06:36] LABS: Basophils % (A) 0 %; Eosinophils # (A) 0.2 k/uL (0-0.7); Eosinophils % (A) 2 %; HGB 11.1 gm/dL (11.4-16.0); Lymphocytes # (A) 1.1 k/uL (1.0-4.8); Lymphocytes % (A) 18 %; MCH 29.2 pg (25.0-35.0); MCHC 31.8 g/dL (31.0-37.0); MCV 91.9 fL (80.0-100.0); Mean Platelet Volume 8.1; Monocytes # (A) 0.5 k/uL (0-1.0); Monocytes % (A) 8 %; Neutrophils # (A) 4.2 k/uL (1.3-7.7); Neutrophils % (A) 69 %; Platelet Count 176 k/uL (150-450); RBC 3.81 m/uL (3.80-5.40); RDW 13.6 % (11.5-15.5); WBC 6.1 k/uL (3.8-10.6)
[2018-04-08 08:23] VITALS: RESP 16
[2018-04-08] MEDS: ASPIRIN 81 MG PO SCH (08:28)
[2018-04-08] MEDS: CHOLECALCIFEROL 1,000 UNIT TAB PO SCH (08:28)
[2018-04-08 11:33] VITALS: BP 128/72; PULSE 80; TEMP 98.4
--- NOTE | 2018-04-08 12:54 | PN ---
PROGRESS NOTE This patient was admitted with arm pain and neck pain. The patient has a history of high blood pressure. The patient remains stable. Denies any chest pain. The patient's blood pressure is 128/72 mmHg. Her heart first and second heart sounds are normal. Lungs are clinically clear to auscultation and percussion. Patient can be discharged home on current medications. MMODL / IJN: [id number] /
[2018-04-08] MEDS: ACETAMINOPHEN TAB 325 MG TAB PO PRN (13:59)
== END 2018-04-08 15:45 | disposition home or self-care (01) | DRG 313 ==
LOC: EC 14:13 → 3SCARD 18:45
PROVIDERS: ADMIT Family Medicine; ATTEND Family Medicine
DX: R07.89 Other chest pain (principal); D64.9 Anemia, unspecified; M54.2 Cervicalgia; D72.829 Elevated white blood cell count, unspecified; M79.603 Pain in arm, unspecified; E78.5 Hyperlipidemia, unspecified; Z96.652 Presence of left artificial knee joint; I12.9 Hypertensive chronic kidney disease with stage 1 through stage 4 chronic kidney disease, or unspecified chronic kidney disease; N18.3 Chronic kidney disease, stage 3 (moderate); R79.1 Abnormal coagulation profile; W00.0XXA Fall on same level due to ice and snow, initial encounter; Z79.82 Long term (current) use of aspirin; Z79.899 Other long term (current) drug therapy; Z82.5 Family history of asthma and other chronic lower respiratory diseases; I25.2 Old myocardial infarction; Z95.5 Presence of coronary angioplasty implant and graft
CPT/HCPCS: 36415; 70450; 71046; 71275; 72125; 73521; 80053; 80061; 81001; 82272; 82550; 82553; 83605; 83735; 84484; 85025; 85379; 85610; 85730; 87040; 87502; 93005; 93306; 96361; 96365; 96366; 96368; 96375; 96376; 99285

== ENCOUNTER → 2018-05-03 | Outpatient (CLI) | payer BC, MEDICARE ==
[2018-05-03 12:12] LABS: Basophils % (A) 0 %; Eosinophils # (A) 0.1 k/uL (0-0.7); Eosinophils % (A) 2 %; HCT 38.6 % (34.0-46.0); HGB 12.6 gm/dL (11.4-16.0); Lymphocytes # (A) 1.5 k/uL (1.0-4.8); Lymphocytes % (A) 24 %; MCH 28.6 pg (25.0-35.0); MCHC 32.6 g/dL (31.0-37.0); MCV 87.7 fL (80.0-100.0); Mean Platelet Volume 8.9; Monocytes # (A) 0.5 k/uL (0-1.0); Monocytes % (A) 8 %; Neutrophils # (A) 3.8 k/uL (1.3-7.7); Neutrophils % (A) 63 %; Platelet Count 181 k/uL (150-450); RDW 14.2 % (11.5-15.5)
[2018-05-03 12:13] LABS: Appearance,Urine Clear (Clear); Bilirubin,Urine Negative (Negative); Blood,Urine Negative (Negative); Color,Urine Yellow; Glucose,Urine (UA) Negative (Negative); Ketones,Urine Negative (Negative); Leukocyte Esterase,Urine Negative (Negative); Nitrite,Urine Negative (Negative); Protein,Urine Negative (Negative); Specific Gravity,Urine 1.014 (1.001-1.035); Urobilinogen,Urine <2.0 mg/dL (<2.0)
[2018-05-03 16:16] LABS: Albumin 4.2 g/dL (3.80-4.90); Anion Gap 5.4 mmol/L (4.00-12.00); Calcium 9.3 mg/dL (8.7-10.3); Carbon Dioxide 30.6 mmol/L (21.6-31.8); Magnesium 1.7 mg/dL (1.5-2.4); Phosphorus 3.8 mg/dL (2.4-5.1); Potassium 3.9 mmol/L (3.5-5.5); Uric Acid 7.1 mg/dL (2.9-7.7)
[2018-05-03 16:46] LABS: Parathyroid Hormone Intact 43.4 pg/mL (14.0-72.0)
[2018-05-03 17:16] LABS: Iron Saturation 16.08 (12.00-45.00)
[2018-05-03 17:24] LABS: Vitamin D 25 Hydroxy 56.8 ng/mL (30.0-100.0)
[2018-05-03 20:22] LABS: Total Protein,Urine Random 13.5 mg/dL (0.0-13.5)
== END | disposition home or self-care (01) ==
LOC: LABWHC1 11:23
PROVIDERS: ATTEND Internal Medicine Nephrology
DX: N17.9 Acute kidney failure, unspecified (principal); D50.9 Iron deficiency anemia, unspecified; E79.0 Hyperuricemia without signs of inflammatory arthritis and tophaceous disease; E55.9 Vitamin D deficiency, unspecified; E21.3 Hyperparathyroidism, unspecified; N39.0 Urinary tract infection, site not specified; R80.9 Proteinuria, unspecified
CPT/HCPCS: 36415; 80048; 81003; 82040; 82306; 82570; 82728; 83540; 83550; 83735; 83970; 84100; 84156; 84550; 85025

== ENCOUNTER → 2018-12-10 | Outpatient (CLI) | payer BC, MEDICARE ==
--- NOTE | 2018-12-10 13:38 | US ---
EXAMINATION TYPE: US abdomen complete DATE OF EXAM: 12/10/2018 COMPARISON: CTA chest April 06 2018. CLINICAL HISTORY: R10 Abdominal pain. Pain EXAM MEASUREMENTS: Liver Length: 18.9 cm Gallbladder Wall: .4 cm CBD: .5 cm Spleen: 14.2 cm Right Kidney: 10.1 x 4.4 x 4.9 cm Left Kidney: 10.2 x 4.8 x 4.0 cm Pancreas: Obscured by bowel gas Liver: Increased attenuation Gallbladder: Multiple stones seen. Evidence for sonographic Styles's sign: No CBD: wnl Spleen: Splenomegaly. Right Kidney: wnl Left Kidney: wnl Upper IVC: wnl Abd Aorta: wnl The liver is homogenous. The intrahepatic portion of the IVC and proximal abdominal aorta are within normal limits. There is evidence of mobile shadowing gallstones. Sonographic Styles's sign negativ e. No pericholecystic fluid or abnormal gallbladder wall thickening. Common bile duct is unremarkable . The visualized portions of the pancreas are homogenous. The spleen is enlarged. Kidneys are symm etric and free of hydronephrosis. No renal lesions are seen. IMPRESSION: With demonstration of fatty infiltration of liver and splenomegaly. Gallstones without se condary also evidence for acute cholecystitis
== END | disposition home or self-care (01) ==
LOC: RADUSWWP 12:42
PROVIDERS: ATTEND Family Medicine
DX: K76.0 Fatty (change of) liver, not elsewhere classified (principal); K80.20 Calculus of gallbladder without cholecystitis without obstruction; R16.1 Splenomegaly, not elsewhere classified
CPT/HCPCS: 76700

== ENCOUNTER 2020-04-20 18:00 | Emergency (ER) | payer BC, MEDICARE ==
[2020-04-20 18:09] VITALS: TEMP 98.5
[2020-04-20] MEDS ORDERED: FUROSEMIDE 10 MG/ML 4 ML VIAL IV STA (18:57)
--- NOTE | 2020-04-20 18:57 | ED ---
General Adult HPI - General Chief complaint: Extremity Problem,Nontraumatic Stated complaint: bilat leg swelling Time Seen by Provider: 04/20/20 18:05 Source: patient, RN notes reviewed Mode of arrival: wheelchair Limitations: no limitations - History of Present Illness Initial comments: Patient is a pleasant 7 he 4-year-old female presenting to the emergency Department with complaints of leg swelling. Patient does have chronic leg swelling that is somewhat worse than normal. Patient is also having some discomfort of her right calf. This has progressed over the past couple of days. No chest pain or dyspnea. Patient does have mild cough are chronic and unchanged. No fevers. - Related Data Home Medications Medication Instructions Recorded Confirmed Glucosam/Jonah-Msm1/C/Thad/Bosw 1 tab PO DAILY 09/24/16 04/20/20 [Glucosamine-Chondroitin Tablet] Atorvastatin [Lipitor] 20 mg PO DAILY 08/20/17 04/20/20 Carvedilol [Coreg] 25 mg PO BID 04/06/18 04/20/20 Cholecalciferol (Vitamin D3) 2,000 unit PO BID 04/06/18 04/20/20 [Vitamin D3] Furosemide [Lasix] 20 mg PO BID 04/06/18 04/20/20 allopurinoL [Zyloprim] 100 mg PO DAILY 04/06/18 04/20/20 amLODIPine [Norvasc] 2.5 mg PO DAILY 04/06/18 04/20/20 lisinopriL 10 mg PO HS 04/06/18 04/20/20 Aspirin EC [Ecotrin] 325 mg PO HS 04/20/20 04/20/20 Betamethasone Dipropionate 1 applic TOPICAL BID PRN 04/20/20 04/20/20 [Diprolene 0.05% Ointment] Allergies Allergy/AdvReac Type Severity Reaction Status Date / Time No Known Allergies Allergy Verified 04/20/20 19:28 Review of Systems ROS Statement: Those systems with pertinent positive or pertinent negative responses have been documented in the HPI. ROS Other: All systems not noted in ROS Statement are negative. Constitutional: Denies: fever ENT: Denies: ear pain Respiratory: Denies: dyspnea Cardiovascular: Denies: chest pain Endocrine: Denies: fatigue Gastrointestinal: Denies: abdominal pain Genitourinary: Denies: dysuria Musculoskeletal: Denies: back pain Skin: Denies: rash Neurological: Denies: weakness Past Medical History Past Medical History: Hypertension, Myocardial Infarction ([place]) Additional Past Medical History / Comment(s): hemorrhoids, [place] x2 Last Myocardial Infarction Date:: 2007 History of Any Multi-Drug Resistant Organisms: None Reported Past Surgical History: Heart Catheterization, Orthopedic Surgery Additional Past Surgical History / Comment(s): LT KNEE REPLACEMENT,PTCA Past Anesthesia/Blood Transfusion Reactions: No Reported Reaction Past Psychological History: No Psychological Hx Reported Smoking Status: Never smoker Past Alcohol Use History: None Reported Past Drug Use History: None Reported - Past Family History Mother Family Medical History: Cancer Additional Family Medical History / Comment(s): breast,brain Father Family Medical History: COPD Additional Family Medical History / Comment(s): emphysema General Exam Limitations: no limitations General appearance: alert, in no apparent distress Eye exam: Present: normal appearance Neck exam: Present: normal inspection Respiratory exam: Present: normal lung sounds bilaterally Cardiovascular Exam: Present: regular rate, normal rhythm GI/Abdominal exam: Present: soft. Absent: tenderness Extremities exam: Present: pedal edema (+3 bilateral), calf tenderness (Right- sided) Neurological exam: Present: alert Psychiatric exam: Present: normal affect, normal mood Skin exam: Present: normal color Course Vital Signs 04/20/20 04/20/20 18:02 20:03 Temperature 98.5 F Pulse Rate 80 78 Respiratory 20 18 Rate Blood Pressure 199/102 200/103 O2 Sat by Pulse 99 95 Oximetry EKG Findings - EKG Comments: EKG Findings:: Normal sinus rhythm 72. IL 180. QRS 92. QT 408. QTC 446. Normal axis. Normal QRS. No acute ST change. Medical Decision Making - Medical Decision Making Patient did take her home medications for blood pressure. Patient was also given Lasix. Patient is advised to take an additional half dose of Lasix in the morning for 40 every morning, 20 every afternoon. Patient is also advised follow-up with her doctor on Thursday and repeat ultrasound if symptoms continue. - Lab Data Result diagrams: 04/20/20 19:31 04/20/20 19:31 Lab Results 04/20/20 04/20/20 04/20/20 Range/Units 19:31 19:31 19:31 WBC 7.3 (3.8-10.6) k/uL RBC 4.71 (3.80-5.40) m/uL Hgb 14.3 (11.4-16.0) gm/dL Hct 42.1 (34.0-46.0) % MCV 89.3 (80.0-100.0) fL MCH 30.4 (25.0-35.0) pg MCHC 34.0 (31.0-37.0) g/dL RDW 13.6 (11.5-15.5) % Plt Count 171 (150-450) k/uL MPV 8.3 Neutrophils % 66 % Lymphocytes % 22 % Monocytes % 7 % Eosinophils % 2 % Basophils % 0 % Neutrophils # 4.8 (1.3-7.7) k/uL Lymphocytes # 1.6 (1.0-4.8) k/uL Monocytes # 0.5 (0-1.0) k/uL Eosinophils # 0.1 (0-0.7) k/uL Basophils # 0.0 (0-0.2) k/uL PT 10.1 (9.0-12.0) sec INR 0.9 (<1.2) APTT 23.2 (22.0-30.0) sec Sodium 140 (137-145) mmol/L Potassium 3.7 (3.5-5.1) mmol/L Chloride 103 (98-107) mmol/L Carbon Dioxide 30 (22-30) mmol/L Anion Gap 7 mmol/L BUN 25 H (7-17) mg/dL Creatinine 1.06 H (0.52-1.04) mg/dL Est GFR (CKD-EPI)AfAm 65 (>60 ml/min/1.73 sqM) Est GFR (CKD-EPI)NonAf 56 (>60 ml/min/1.73 sqM) Glucose 104 H (74-99) mg/dL Calcium 9.4 (8.4-10.2) mg/dL Total Bilirubin 0.5 (0.2-1.3) mg/dL AST 28 (14-36) U/L ALT 26 (4-34) U/L Alkaline Phosphatase 97 (38-126) U/L NT-Pro-B Natriuret Pep pg/mL Total Protein 6.7 (6.3-8.2) g/dL Albumin 4.0 (3.5-5.0) g/dL Urine Color Urine Appearance (Clear) Urine pH (5.0-8.0) Ur Specific [place] (1.001-1.035) Urine Protein (Negative) Urine Glucose (UA) (Negative) Urine Ketones (Negative) Urine Blood (Negative) Urine Nitrite (Negative) Urine Bilirubin (Negative) Urine Urobilinogen (<2.0) mg/dL Ur Leukocyte Esterase (Negative) Urine RBC (0-5) /hpf Urine WBC (0-5) /hpf Ur Squamous Epith Cells (0-4) /hpf 04/20/20 04/20/20 Range/Units 19:31 19:32 WBC (3.8-10.6) k/uL RBC (3.80-5.40) m/uL Hgb (11.4-16.0) gm/dL Hct (34.0-46.0) % MCV (80.0-100.0) fL MCH (25.0-35.0) pg MCHC (31.0-37.0) g/dL RDW (11.5-15.5) % Plt Count (150-450) k/uL MPV Neutrophils % % Lymphocytes % % Monocytes % % Eosinophils % % Basophils % % Neutrophils # (1.3-7.7) k/uL Lymphocytes # (1.0-4.8) k/uL Monocytes # (0-1.0) k/uL Eosinophils # (0-0.7) k/uL Basophils # (0-0.2) k/uL PT (9.0-12.0) sec INR (<1.2) APTT (22.0-30.0) sec Sodium (137-145) mmol/L Potassium (3.5-5.1) mmol/L Chloride (98-107) mmol/L Carbon Dioxide (22-30) mmol/L Anion Gap mmol/L BUN (7-17) mg/dL Creatinine (0.52-1.04) mg/dL Est GFR (CKD-EPI)AfAm (>60 ml/min/1.73 sqM) Est GFR (CKD-EPI)NonAf (>60 ml/min/1.73 sqM) Glucose (74-99) mg/dL Calcium (8.4-10.2) mg/dL Total Bilirubin (0.2-1.3) mg/dL AST (14-36) U/L ALT (4-34) U/L Alkaline Phosphatase (38-126) U/L NT-Pro-B Natriuret Pep 304 pg/mL Total Protein (6.3-8.2) g/dL Albumin (3.5-5.0) g/dL Urine Color Light Yellow Urine Appearance Clear (Clear) Urine pH 7.0 (5.0-8.0) Ur Specific [place] 1.012 (1.001-1.035) Urine Protein 1+ H (Negative) Urine Glucose (UA) Negative (Negative) Urine Ketones Negative (Negative) Urine Blood Negative (Negative) Urine Nitrite Negative (Negative) Urine Bilirubin Negative (Negative) Urine Urobilinogen <2.0 (<2.0) mg/dL Ur Leukocyte Esterase Negative (Negative) Urine RBC 1 (0-5) /hpf Urine WBC 4 (0-5) /hpf Ur Squamous Epith Cells 1 (0-4) /hpf - Radiology Data Radiology results: report reviewed (Ultrasound negative for DVT), image reviewed (Chest x-ray reveals no acute process) Disposition Clinical Impression: Leg edema Disposition: HOME SELF-CARE Condition: Stable Instructions (If sedation given, give patient instructions): Leg Edema (ED) Additional Instructions: Please follow-up with your primary care physician in the beginning of the week. If discomfort continues consider repeat ultrasound. Return for chest pain, difficulty breathing, redness or fever, increased swelling, worsening symptoms or other concerns. Increase dose of Lasix: Furosemide: 40 mg in the morning, 20 mg in the evening for this weekend. Further dosing starting Thursday for primary care physician. Is patient prescribed a controlled substance at d/c from ED?: No Referrals: Johny Edouard DO [Primary Care Provider] - 1-2 days Time of Disposition: 21:04
[2020-04-20 19:52] LABS: Basophils % (A) 0 %; Eosinophils # (A) 0.1 k/uL (0-0.7); Eosinophils % (A) 2 %; HCT 42.1 % (34.0-46.0); HGB 14.3 gm/dL (11.4-16.0); Lymphocytes # (A) 1.6 k/uL (1.0-4.8); Lymphocytes % (A) 22 %; MCH 30.4 pg (25.0-35.0); MCV 89.3 fL (80.0-100.0); Mean Platelet Volume 8.3; Monocytes # (A) 0.5 k/uL (0-1.0); Monocytes % (A) 7 %; Neutrophils # (A) 4.8 k/uL (1.3-7.7); Neutrophils % (A) 66 %; Platelet Count 171 k/uL (150-450); RBC 4.71 m/uL (3.80-5.40); RDW 13.6 % (11.5-15.5); WBC 7.3 k/uL (3.8-10.6)
[2020-04-20 19:52] LABS: Appearance,Urine Clear (Clear); Bilirubin,Urine Negative (Negative); Blood,Urine Negative (Negative); Color,Urine Light Yellow; Glucose,Urine (UA) Negative (Negative); Ketones,Urine Negative (Negative); Leukocyte Esterase,Urine Negative (Negative); Nitrite,Urine Negative (Negative); Protein,Urine 1+ (Negative); RBC,Urine 1 /hpf (0-5); Specific Gravity,Urine 1.012 (1.001-1.035); Squamous Epithelial Cell,Urine 1 /hpf (0-4); Urobilinogen,Urine <2.0 mg/dL (<2.0); WBC,Urine 4 /hpf (0-5)
--- NOTE | 2020-04-20 19:55 | XR ---
EXAMINATION TYPE: XR chest 2V DATE OF EXAM: 04/20/2020 COMPARISON: 04/06/2018 HISTORY: Chest pain. Edema. TECHNIQUE: FINDINGS: Heart is normal. Lungs are clear of consolidation. There are no hilar masses. Costophrenic angles are clear. There is some spurring in the thoracic spine. IMPRESSION: No active cardiopulmonary disease. No change.
[2020-04-20 20:03] LABS: Calcium 9.4 mg/dL (8.4-10.2); Potassium 3.7 mmol/L (3.5-5.1); Total Bilirubin 0.5 mg/dL (0.2-1.3); Total Protein 6.7 g/dL (6.3-8.2)
[2020-04-20 20:04] LABS: INR 0.9 (<1.2); Partial Thromboplastin Time 23.2 sec (22.0-30.0); Prothrombin Time 10.1 sec (9.0-12.0)
[2020-04-20 20:19] VITALS: BP 200/103; PULSE 78; RESP 18
--- NOTE | 2020-04-20 20:59 | US ---
EXAMINATION TYPE: US venous doppler duplex LE RT DATE OF EXAM: 04/20/2020 8:20 PM COMPARISON: NONE CLINICAL HISTORY: swelling. 360lb patient with right ankle swelling, no h/o dvt SIDE PERFORMED: Right TECHNIQUE: The lower extremity deep venous system is examined utilizing real time linear array sonog william with graded compression, doppler sonography and color-flow sonography. VESSELS IMAGED: Common Femoral Vein Deep Femoral Vein Greater Saphenous Vein * Femoral Vein Popliteal Vein Small Saphenous Vein * Proximal Calf Veins (* superficial vessels) Right Leg: Negative for DVT IMPRESSION: No evidence of deep vein thrombosis in the right leg.
== END 2020-04-20 21:12 | disposition home or self-care (01) ==
LOC: EC 18:00
DX: R60.0 Localized edema (principal); I10 Essential (primary) hypertension; I25.2 Old myocardial infarction; Z79.82 Long term (current) use of aspirin
CPT/HCPCS: 36415; 93005; 83880; 80053; 85025; 85610; 85730; 81001; 71046; 93971; 99284; 96374; J1940

== ENCOUNTER → 2020-05-28 | Outpatient (CLI) | payer BC, MEDICARE | END | disposition home or self-care (01) | LOC: LABWHC1 13:35 | PROVIDERS: ATTEND Family Medicine | DX: U07.1 COVID-19 (principal) | CPT/HCPCS: U0003; C9803; U0005 ==

== ENCOUNTER 2021-05-03 07:16 | Emergency (ER) | payer BC, MEDICARE ==
[2021-05-03 07:35] VITALS: RESP 18
[2021-05-03] MEDS ORDERED: ACETAMINOPHEN TAB 325 MG TAB PO STA (08:15)
--- NOTE | 2021-05-03 08:16 | ED ---
General Adult HPI - General Chief complaint: Skin/Abscess/Foreign Body Stated complaint: Let ulcers Time Seen by Provider: 05/03/21 08:04 Source: patient, RN notes reviewed, old records reviewed Mode of arrival: ambulatory Limitations: no limitations - History of Present Illness Initial comments: 65-year-old female presents with complaints of leg ulcers since November. Patient has been seen by her primary care doctor and prescribed antibiotics in the past. She recently finished Keflex 2 weeks ago. He also has her on Silvadene cream which she has been using. She states that the leg looks red and has been increasingly tender and wound not healing. She denies any fevers, nausea, vomiting or diarrhea. Denies any other ulcers. She does have a history of peripheral vascular disease, hypertension and CO 2. -: month(s) (6) Location: right, lower extremity (distal lower leg) Radiation: non-radiation Severity scale (1-10): 7 Consistency: intermittent Associated Symptoms: denies other symptoms Treatments Prior to Arrival: other (Silvadene cream) - Related Data Home Medications Medication Instructions Recorded Confirmed Glucosam/Jonah-Msm1/C/Thad/Bosw 1 tab PO DAILY 09/24/16 05/03/21 [Glucosamine-Chondroitin Tablet] Atorvastatin [Lipitor] 20 mg PO DAILY 08/20/17 05/03/21 Carvedilol [Coreg] 12.5 mg PO BID 04/06/18 05/03/21 Furosemide [Lasix] 20 mg PO BID 04/06/18 05/03/21 allopurinoL [Zyloprim] 100 mg PO DAILY 04/06/18 05/03/21 lisinopriL 20 mg PO HS 04/06/18 05/03/21 Aspirin EC [Ecotrin] 325 mg PO HS 04/20/20 05/03/21 Cholecalciferol [Vitamin D3 (125 125 mcg PO BID 05/03/21 05/03/21 Mcg = 5000 Iu)] Immunoflora 1 tab PO HS 05/03/21 05/03/21 Multivit-Min/Iron/Folic/Lutein 1 tab PO DAILY 05/03/21 05/03/21 [Centrum Silver Women Tablet] Potassium Chloride ER [K-Dur 10] 10 meq PO DAILY 05/03/21 05/03/21 Spironolactone 25 mg PO DAILY 05/03/21 05/03/21 Vitamin B Complex 1 cap PO DAILY 05/03/21 05/03/21 Allergies Allergy/AdvReac Type Severity Reaction Status Date / Time No Known Allergies Allergy Verified 05/03/21 10:12 Review of Systems ROS Statement: Those systems with pertinent positive or pertinent negative responses have been documented in the HPI. ROS Other: All systems not noted in ROS Statement are negative. Past Medical History Past Medical History: Hypertension, Myocardial Infarction ([place]) Additional Past Medical History / Comment(s): hemorrhoids, [place] x2 Last Myocardial Infarction Date:: 2007 History of Any Multi-Drug Resistant Organisms: None Reported Past Surgical History: Heart Catheterization, Orthopedic Surgery Additional Past Surgical History / Comment(s): LT KNEE REPLACEMENT,PTCA Past Anesthesia/Blood Transfusion Reactions: No Reported Reaction Past Psychological History: No Psychological Hx Reported Smoking Status: Never smoker Past Alcohol Use History: None Reported Past Drug Use History: None Reported - Past Family History Mother Family Medical History: Cancer Additional Family Medical History / Comment(s): breast,brain Father Family Medical History: COPD Additional Family Medical History / Comment(s): emphysema General Exam Limitations: no limitations General appearance: alert, in no apparent distress Eye exam: Present: normal appearance Respiratory exam: Present: normal lung sounds bilaterally. Absent: respiratory distress, accessory muscle use, decreased breath sounds Cardiovascular Exam: Present: regular rate Extremities exam: Present: pedal edema (2+) Neurological exam: Present: alert, oriented X3 Psychiatric exam: Present: normal affect, normal mood Skin exam: Present: warm, normal color, erythema, other (leg ulcers approx 2cm and 1.5cm anterior distal tibia; chronic venous stasis ulcers). Absent: cyanosis, diaphoretic Course Vital Signs 05/03/21 05/03/21 05/03/21 07:33 08:57 11:59 Temperature 98.8 F 97.8 F 97.7 F Pulse Rate 80 79 76 Respiratory 18 18 18 Rate Blood Pressure 130/83 140/93 147/88 O2 Sat by Pulse 95 96 98 Oximetry Medical Decision Making - Medical Decision Making 65-year-old female presents with nonhealing ulcers to her right lower extremity. She has been seeing her primary care doctor for these ulcers since November with minimal improvement. She has had 2 courses of Keflex in the past month. She denies any fevers, nausea vomiting or diarrhea. She is not diabetic. She has had a history of peripheral vascular disease. There is no evidence of leukocytosis. Patient is afebrile. Wound culture was sent. These appear to be venous stasis ulcers with some pigment changes to the lower extremity. She was directed to continue using the Silvadene cream and was given a referral to wound care clinic. I directed her to return to the emergency room with any new or concerning symptoms including pain, fevers or foul-smelling drainage. Dr. Hroton at bedside to evaluate wound. Patient is agreeable to this plan of care. - Lab Data Result diagrams: 05/03/21 08:55 05/03/21 08:55 Lab Results 05/03/21 05/03/21 05/03/21 Range/Units 08:55 08:55 08:55 WBC 5.6 (3.8-10.6) k/uL RBC 4.49 (3.80-5.40) m/uL Hgb 14.4 (11.4-16.0) gm/dL Hct 43.5 (34.0-46.0) % MCV 97.0 D (80.0-100.0) fL MCH 32.1 (25.0-35.0) pg MCHC 33.1 (31.0-37.0) g/dL RDW 14.5 (11.5-15.5) % Plt Count 147 L (150-450) k/uL MPV 10.1 Neutrophils % 66 % Lymphocytes % 22 % Monocytes % 7 % Eosinophils % 1 % Basophils % 0 % Neutrophils # 3.7 (1.3-7.7) k/uL Lymphocytes # 1.3 (1.0-4.8) k/uL Monocytes # 0.4 (0-1.0) k/uL Eosinophils # 0.1 (0-0.7) k/uL Basophils # 0.0 (0-0.2) k/uL Sodium 139 (137-145) mmol/L Potassium 4.2 (3.5-5.1) mmol/L Chloride 104 (98-107) mmol/L Carbon Dioxide 26 (22-30) mmol/L Anion Gap 9 mmol/L BUN 25 H (7-17) mg/dL Creatinine 1.29 H (0.52-1.04) mg/dL Est GFR (CKD-EPI)AfAm 51 (>60 ml/min/1.73 sqM) Est GFR (CKD-EPI)NonAf 44 (>60 ml/min/1.73 sqM) Glucose 112 H (74-99) mg/dL Calcium 9.3 (8.4-10.2) mg/dL Total Bilirubin 0.7 (0.2-1.3) mg/dL AST 43 H (14-36) U/L ALT 39 H (4-34) U/L Alkaline Phosphatase 87 (38-126) U/L NT-Pro-B Natriuret Pep 100 pg/mL Total Protein 6.8 (6.3-8.2) g/dL Albumin 4.1 (3.5-5.0) g/dL Disposition Clinical Impression: PVD (peripheral vascular disease), Stasis ulcer of lower extremity Disposition: HOME SELF-CARE Condition: Good Instructions (If sedation given, give patient instructions): Peripheral Vascular Disease (ED), Chronic Wounds (ED) Additional Instructions: Continue using the Silvadene cream as prescribed by your primary care doctor. Follow-up with the wound care clinic. Return to the emergency room with any increased pain, foul odor, fevers or worsening redness. Is patient prescribed a controlled substance at d/c from ED?: No Referrals: Johny Edouard DO [Primary Care Provider] - 1-2 days [facility] [NON-STAFF] - 1-2 days Time of Disposition: 11:38
[2021-05-03 09:55] LABS: Basophils % (A) 0 %; Eosinophils # (A) 0.1 k/uL (0-0.7); Eosinophils % (A) 1 %; HCT 43.5 % (34.0-46.0); HGB 14.4 gm/dL (11.4-16.0); Lymphocytes # (A) 1.3 k/uL (1.0-4.8); Lymphocytes % (A) 22 %; MCH 32.1 pg (25.0-35.0); MCHC 33.1 g/dL (31.0-37.0); Mean Platelet Volume 10.1; Monocytes # (A) 0.4 k/uL (0-1.0); Monocytes % (A) 7 %; Neutrophils # (A) 3.7 k/uL (1.3-7.7); Neutrophils % (A) 66 %; Platelet Count 147 k/uL (150-450); RBC 4.49 m/uL (3.80-5.40); RDW 14.5 % (11.5-15.5); WBC 5.6 k/uL (3.8-10.6)
[2021-05-03 10:07] LABS: Albumin 4.1 g/dL (3.5-5.0); Calcium 9.3 mg/dL (8.4-10.2); Potassium 4.2 mmol/L (3.5-5.1); Total Bilirubin 0.7 mg/dL (0.2-1.3); Total Protein 6.8 g/dL (6.3-8.2)
[2021-05-03 12:01] VITALS: BP 147/88; PULSE 76; TEMP 97.7
== END 2021-05-03 11:59 | disposition home or self-care (01) ==
LOC: EC 07:16
DX: I73.9 Peripheral vascular disease, unspecified (principal); I83.019 Varicose veins of right lower extremity with ulcer of unspecified site; I10 Essential (primary) hypertension; I25.2 Old myocardial infarction; Z79.899 Other long term (current) drug therapy; Z79.82 Long term (current) use of aspirin
CPT/HCPCS: 36415; 80053; 83880; 85025; 87070; 87077; 87186; 87205; 99283

== ENCOUNTER 2021-08-21 02:21 | Emergency (ER) | payer BC, MEDICARE ==
[2021-08-21 02:27] VITALS: TEMP 97.7
[2021-08-21] MEDS ORDERED: HYDROmorphone 1 MG/ML 1 ML SYRINGE IVP STA (02:51)
--- NOTE | 2021-08-21 02:51 | ED ---
Upper Extremity HPI - General Chief Complaint: Extremity Injury, Upper Stated Complaint: R Arm Injury Time Seen by Provider: 08/21/21 02:24 Source: patient, RN notes reviewed, old records reviewed Mode of arrival: EMS Limitations: no limitations - History of Present Illness Initial Comments: This is a 66-year-old female to the emergency department for evaluation. Patient had trip and fall at home fell into the fridge states she was walking in the dark follows mechanical. She has severe right elbow pain. Other injury from the fall no drugs or alcohol involved MD Complaint: Injury to:: right, elbow -: minutes(s) Other Extremity Injury: Elbow: Right Other Injuries: none Handedness: right Place: home Severity scale (1-10): 10 Improves With: none Context: fall, direct blow Associated Symptoms: denies other symptoms Treatments Prior to Arrival: splint - Related Data Home Medications Medication Instructions Recorded Confirmed Glucosam/Jonah-Msm1/C/Thad/Bosw 1 tab PO DAILY 09/24/16 05/03/21 [Glucosamine-Chondroitin Tablet] Atorvastatin [Lipitor] 20 mg PO DAILY 08/20/17 05/03/21 Furosemide [Lasix] 20 mg PO BID 04/06/18 05/03/21 allopurinoL [Zyloprim] 100 mg PO DAILY 04/06/18 05/03/21 carvediloL [Coreg] 12.5 mg PO BID 04/06/18 05/03/21 lisinopriL 20 mg PO HS 04/06/18 05/03/21 Aspirin EC [Ecotrin] 325 mg PO HS 04/20/20 05/03/21 Cholecalciferol [Vitamin D3 (125 125 mcg PO BID 05/03/21 05/03/21 Mcg = 5000 Iu)] Immunoflora 1 tab PO HS 05/03/21 05/03/21 Multivit-Min/Iron/Folic/Lutein 1 tab PO DAILY 05/03/21 05/03/21 [Centrum Silver Women Tablet] Potassium Chloride ER [K-Dur 10] 10 meq PO DAILY 05/03/21 05/03/21 Spironolactone 25 mg PO DAILY 05/03/21 05/03/21 Vitamin B Complex 1 cap PO DAILY 05/03/21 05/03/21 Allergies Allergy/AdvReac Type Severity Reaction Status Date / Time No Known Allergies Allergy Verified 05/03/21 10:12 Review of Systems ROS Statement: Those systems with pertinent positive or pertinent negative responses have been documented in the HPI. ROS Other: All systems not noted in ROS Statement are negative. Past Medical History Past Medical History: Hypertension, Myocardial Infarction ([place]) Additional Past Medical History / Comment(s): hemorrhoids, [place] x2 Last Myocardial Infarction Date:: 2007 History of Any Multi-Drug Resistant Organisms: None Reported Past Surgical History: Heart Catheterization, Orthopedic Surgery Additional Past Surgical History / Comment(s): LT KNEE REPLACEMENT,PTCA Past Anesthesia/Blood Transfusion Reactions: No Reported Reaction Past Psychological History: No Psychological Hx Reported Smoking Status: Never smoker Past Alcohol Use History: None Reported Past Drug Use History: None Reported - Past Family History Mother Family Medical History: Cancer Additional Family Medical History / Comment(s): breast,brain Father Family Medical History: COPD Additional Family Medical History / Comment(s): emphysema General Exam Limitations: no limitations General appearance: alert, in no apparent distress Head exam: Present: atraumatic, normocephalic, normal inspection Eye exam: Present: normal appearance, PERRL, EOMI. Absent: scleral icterus, conjunctival injection, periorbital swelling ENT exam: Present: normal exam, mucous membranes moist Neck exam: Present: normal inspection. Absent: tenderness, meningismus, lymphadenopathy Respiratory exam: Present: normal lung sounds bilaterally. Absent: respiratory distress, wheezes, rales, rhonchi, stridor Cardiovascular Exam: Present: regular rate, normal rhythm, normal heart sounds. Absent: systolic murmur, diastolic murmur, rubs, gallop, clicks GI/Abdominal exam: Present: soft, normal bowel sounds. Absent: distended, tenderness, guarding, rebound, rigid Extremities exam: Present: normal inspection, full ROM, normal capillary refill, other (A she has deformity of right elbow). Absent: tenderness, pedal edema, joint swelling, calf tenderness Back exam: Present: normal inspection Neurological exam: Present: alert, oriented X3, CN II-XII intact Psychiatric exam: Present: normal affect, normal mood Skin exam: Present: warm, dry, intact, normal color. Absent: rash Course Vital Signs 08/21/21 08/21/21 02:23 03:45 Temperature 97.7 F Pulse Rate 69 74 Respiratory 18 18 Rate Blood Pressure 153/79 158/92 O2 Sat by Pulse 97 95 Oximetry - Reevaluation(s) Reevaluation #1: 08/21/21 04:22 [facility] records reviewed Procedures - Orthopedic Joint Reduction Joint #1 Consent Obtained: verbal consent Side: right Joint Reduction Location: elbow Analgesia: procedural sedation Technique Used: traction/counter-traction, direct manipulation Post-Reduction Neuro Exam: intact Post-Reduction Vascular Exam: intact Post Reduction X-Ray Obtained: Yes Post Reduction X-Ray Results: reduced Splint Applied: Yes Patient Tolerated Procedure: well - Procedural Sedation Procedural Sedation Start Time: 04:30 Procedural Sedation Stop Time: 05:05 Indications: fracture/dislocation reduction ASA Class: III Mallampati Airway Score: 3 Preparation: cardiac exercise physiologist applied, pulse oximeter, capnometry used, supplemental O2 applied, reversal agents at bedside, suction/airway equipment at bedside IV Propofol Dose (mgs): 100 Complications: none Interventions: oxygen applied Patient Tolerated Procedure: well Medical Decision Making - Medical Decision Making 66 female DF status post fall fall with right elbow dislocation elbow was relocated here in the ER placed in splint and sling and patient can be discharged home - Radiology Data Radiology results: report reviewed (X-ray right elbow showed does show elbow dislocation, repeat x-ray shows relocation), image reviewed Disposition Clinical Impression: Fall, Dislocation of right elbow Disposition: HOME SELF-CARE Condition: Good Instructions (If sedation given, give patient instructions): Elbow Dislocation (ED), Moderate Sedation (ED) Is patient prescribed a controlled substance at d/c from ED?: No Referrals: Johny Edouard DO [Primary Care Provider] - 1-2 days Cal Motley MD [STAFF PHYSICIAN] - 1-2 days Time of Disposition: 05:10
[2021-08-21] MEDS ORDERED: DIAZEPAM 5 MG/ML 2 ML INJ IVP STA (03:12)
--- NOTE | 2021-08-21 03:47 | XR ---
EXAM: XR Right Humerus, 2 or More Views CLINICAL HISTORY: ITS.REASON XR Reason: FALL TECHNIQUE: Frontal and lateral views of the right humerus. COMPARISON: No relevant prior studies available. IMPRESSION: The humerus appears to be dislocated at the elbow joint. Recommend dedicated elbow films.
[2021-08-21] MEDS ORDERED: PROPOFOL 10 MG/ML 20 ML VIAL IV ONE (04:22)
--- NOTE | 2021-08-21 05:15 | XR ---
EXAM: XR Right Elbow Complete, 3 or More Views CLINICAL HISTORY: ITS.REASON XR Reason: POST REDUCTION TECHNIQUE: Frontal, lateral and oblique views of the right elbow. COMPARISON: No relevant prior studies available. FINDINGS: Bones/joints: Incomplete reduction of the elbow joint. No definite evidence of fracture on single view. Soft tissues: Unremarkable. IMPRESSION: Incomplete reduction of the elbow joint. No definite evidence of fracture.
[2021-08-21 06:54] VITALS: BP 135/80; PULSE 70; RESP 18
== END 2021-08-21 06:54 | disposition home or self-care (01) ==
LOC: EC 02:21
DX: S53.104A Unspecified dislocation of right ulnohumeral joint, initial encounter (principal); I10 Essential (primary) hypertension; I25.2 Old myocardial infarction; W01.0XXA Fall on same level from slipping, tripping and stumbling without subsequent striking against object, initial encounter
CPT/HCPCS: 73060; 73070; 24600; 99283; 96374; 96375; J3360; J1170; J2704

== ENCOUNTER 2022-07-16 22:45 | Observation (INO) | payer BC, MEDICARE ==
[2022-07-17] MEDS ORDERED: SODIUM CHLORIDE 0.9% 1,000 ML IV ONE ×2 (01:24→18:15)
[2022-07-17] MEDS ORDERED: MORPHINE SULFATE 4 MG/ML SYRINGE IVP STA (01:25)
[2022-07-17] MEDS ORDERED: ONDANSETRON 4 MG/2 ML VIAL IVP STA (01:25)
[2022-07-17 02:01] LABS: Basophils % (A) 0 %; Eosinophils # (A) 0.1 k/uL (0-0.7); Eosinophils % (A) 1 %; HCT 42.5 % (34.0-46.0); HGB 14.4 gm/dL (11.4-16.0); Lymphocytes # (A) 1.6 k/uL (1.0-4.8); Lymphocytes % (A) 18 %; MCH 31.4 pg (25.0-35.0); MCV 92.4 fL (80.0-100.0); Mean Platelet Volume 9.4; Monocytes # (A) 0.7 k/uL (0-1.0); Monocytes % (A) 7 %; Neutrophils # (A) 6.3 k/uL (1.3-7.7); Neutrophils % (A) 71 %; Platelet Count 161 k/uL (150-450); RDW 13.2 % (11.5-15.5)
[2022-07-17 02:19] LABS: Albumin 4.1 g/dL (3.5-5.0); Calcium 9.3 mg/dL (8.4-10.2); Magnesium 2.1 mg/dL (1.6-2.3); Potassium 4.7 mmol/L (3.5-5.1); Total Bilirubin 1.1 mg/dL (0.2-1.3)
[2022-07-17] MEDS ORDERED: NALOXONE 0.4 MG/ML 1 ML VIAL IV PRN (02:46)
[2022-07-17] MEDS ORDERED: MORPHINE SULFATE 4 MG/ML SYRINGE IV PRN (02:46)
--- NOTE | 2022-07-17 03:00 | ED ---
General Adult HPI - General Chief complaint: Abdominal Pain Stated complaint: Right side pain, back pain Time Seen by Provider: 07/17/22 01:08 Source: patient Mode of arrival: wheelchair Limitations: no limitations - History of Present Illness Initial comments: This is a 67-year-old female with a past medical history including hypertension presents emergency department for right upper quadrant abdominal pain. The patient stated that she has had issues with her gallbladder over the last 2 years and does have a scheduled cholecystectomy with Dr. Ugalde on 07/21/2022. The patient stated that she did have pain that started around noon today and she did call the surgeons office who stated that the patient should only drink water and broth and try and relax. The patient attempted to do these instructions with stated that the pain was so severe that she could not take a deep breath. The patient did state that the pain continued throughout this evening and she did come to the emergency department. The patient stated that any movement makes her pain worse as well as any deep breathing. The patient stated that when she lays still it does help with her pain. Because the continued pain, the patient came to the emergency department for a hopeful evaluation by Dr. Ugalde. The patient also reported associated nausea. The patient denied any fevers and chills however. - Related Data Home Medications Medication Instructions Recorded Confirmed Glucosam/Jonah-Msm1/C/Thad/Bosw 1 tab PO DAILY 09/24/16 05/03/21 [Glucosamine-Chondroitin Tablet] Atorvastatin [Lipitor] 20 mg PO DAILY 08/20/17 05/03/21 Furosemide [Lasix] 20 mg PO BID 04/06/18 05/03/21 allopurinoL [Zyloprim] 100 mg PO DAILY 04/06/18 05/03/21 carvediloL [Coreg] 12.5 mg PO BID 04/06/18 05/03/21 lisinopriL 20 mg PO HS 04/06/18 05/03/21 Aspirin EC [Ecotrin] 325 mg PO HS 04/20/20 05/03/21 Cholecalciferol [Vitamin D3 (125 125 mcg PO BID 05/03/21 05/03/21 Mcg = 5000 Iu)] Immunoflora 1 tab PO HS 05/03/21 05/03/21 Multivit-Min/Iron/Folic/Lutein 1 tab PO DAILY 05/03/21 05/03/21 [Centrum Silver Women Tablet] Potassium Chloride ER [K-Dur 10] 10 meq PO DAILY 05/03/21 05/03/21 Spironolactone 25 mg PO DAILY 05/03/21 05/03/21 Vitamin B Complex 1 cap PO DAILY 05/03/21 05/03/21 Allergies Allergy/AdvReac Type Severity Reaction Status Date / Time No Known Allergies Allergy Verified 07/16/22 22:49 Review of Systems ROS Statement: Those systems with pertinent positive or pertinent negative responses have been documented in the HPI. ROS Other: All systems not noted in ROS Statement are negative. Past Medical History Past Medical History: Hypertension, Myocardial Infarction ([place]) Additional Past Medical History / Comment(s): hemorrhoids, [place] x2 Last Myocardial Infarction Date:: 2007 History of Any Multi-Drug Resistant Organisms: None Reported Past Surgical History: Heart Catheterization, Orthopedic Surgery Additional Past Surgical History / Comment(s): LT KNEE REPLACEMENT,PTCA Past Anesthesia/Blood Transfusion Reactions: No Reported Reaction Past Psychological History: No Psychological Hx Reported Smoking Status: Never smoker Past Alcohol Use History: None Reported Past Drug Use History: None Reported - Past Family History Mother Family Medical History: Cancer Additional Family Medical History / Comment(s): breast,brain Father Family Medical History: COPD Additional Family Medical History / Comment(s): emphysema General Exam Limitations: no limitations General appearance: alert, in no apparent distress, obese Head exam: Present: atraumatic, normocephalic, normal inspection Eye exam: Present: normal appearance, PERRL Pupils: Present: normal accommodation ENT exam: Present: normal exam, normal oropharynx, mucous membranes moist Neck exam: Present: normal inspection, full ROM Respiratory exam: Present: normal lung sounds bilaterally Cardiovascular Exam: Present: regular rate, normal rhythm, normal heart sounds GI/Abdominal exam: Present: soft, tenderness (Right upper quadrant tenderness with positive Styles sign), normal bowel sounds Extremities exam: Present: normal inspection, full ROM Back exam: Present: normal inspection, full ROM Neurological exam: Present: alert, oriented X3, CN II-XII intact Psychiatric exam: Present: normal affect, normal mood Skin exam: Present: warm, dry Course Vital Signs 07/16/22 07/17/22 22:46 01:19 Temperature 98.1 F Pulse Rate 76 70 Respiratory 20 22 Rate Blood Pressure 165/88 186/70 O2 Sat by Pulse 99 96 Oximetry Medical Decision Making - Medical Decision Making Was pt. sent in by a medical professional or institution (, [facility], [facility], urgent care, hospital, or usp...) When possible be specific @ -No Did you speak to anyone other than the patient for history (EMS, parent, family, police, friend...)? What history was obtained from this source @ -No Did you review nursing and triage notes (agree or disagree)? Why? @ -I reviewed and agree with nursing and triage notes Were old charts reviewed (outside hosp., previous admission, EMS record, old EKG, old radiological studies, urgent care reports/EKG's, usp records)? Report findings @ -No old charts were reviewed Differential Diagnosis (chest pain, altered mental status, abdominal pain women, abdominal pain men, vaginal bleeding, weakness, fever, dyspnea, syncope, headache, dizziness, GI bleed, back pain, seizure, CVA, palpatations, mental health)? @ -Cholelithiasis, biliary colic, cholecystitis EKG interpreted by me (3pts min.). @ -None X-rays interpreted by me (1pt min.). @ -None done CT interpreted by me (1pt min.). @ -None done U/S interpreted by me (1pt. min.). @ -None done What testing was considered but not performed or refused? (CT, X-rays, U/S, labs)? Why? @ -An ultrasound was considered however the patient has a previous cholec ystectomy scheduled for 07/21/2022 and did have positive Styles sign with right upper quadrant pain and therefore there was no need for further testing at this time What meds were considered but not given or refused? Why? @ -None Did you discuss the management of the patient with other professionals (professionals i.e. , [facility], [facility], lab, RT, psych nurse, social welfare research worker, warehousing technician, teacher, information management officer, case maker)? Give summary @ -Yes, Dr. Ugalde was contacted Was smoking cessation discussed for >3mins.? @ -No Was critical care preformed (if so, how long)? @ -No Were there social determinants of health that impacted care today? How? (Homelessness, low income, unemployed, alcoholism, drug addiction, transportation, low edu. Level, literacy, decrease access to med. care, snf, rehab)? @ -No Was there de-escalation of care discussed even if they declined (Discuss DNR or withdrawal of care, Hospice)? DNR status @ -No What co-morbidities impacted this encounter? (DM, HTN, Smoking, COPD, CAD, Cancer, CVA, ARF, Chemo, Hep., AIDS, mental health diagnosis, sleep apnea, morbid obesity)? @ -Hypertension Was patient admitted / discharged? Hospital course, mention meds given and route, prescriptions, significant lab abnormalities, going to OR and other pertinent info. @ -The patient was seen and evaluated emergency department. Physical exam, the patient was resting in bed without any acute distress. The patient did state whenever she moves her pain does become worse. Vital signs were stable. Laboratory workup was obtained and was within normal limits. The patient was given pain medications as well as Zofran and reevaluation stated her pain was moderately improved. Due to the patient's continued significant pain, right upper quadrant pain and scheduled cholecystectomy, the patient will be placed observation for Dr. Ugalde to evaluate the patient for possible cholecystectomy on this admission. The patient was agreeable to this plan and all of her questions were answered appropriately. The patient was placed observation in stable condition. Undiagnosed new problem with uncertain prognosis? @ -No Drug Therapy requiring intensive monitoring for toxicity (Heparin, Nitro, Insulin, Cardizem)? @ -No Were any procedures done? @ -No Diagnosis/symptom? @ -Biliary colic, cholelithiasis Acute, or Chronic, or Acute on Chronic? @ -Acute on chronic Uncomplicated (without systemic symptoms) or Complicated (systemic symptoms)? @ -Complicated Side effects of treatment? @ -No Exacerbation, Progression, or Severe Exacerbation? @ -No Poses a threat to life or bodily function? How? (Chest pain, [place], [place], pneumonia, PE, COPD, DKA, ARF, appy, cholecystitis, CVA, Diverticulitis, Homicidal, Suicidal, threat to staff... and all critical care pts) @ -No - Lab Data Result diagrams: 07/17/22 01:40 07/17/22 01:40 Lab Results 07/17/22 07/17/22 Range/Units 01:40 01:40 WBC 9.0 (3.8-10.6) k/uL RBC 4.60 (3.80-5.40) m/uL Hgb 14.4 (11.4-16.0) gm/dL Hct 42.5 (34.0-46.0) % MCV 92.4 (80.0-100.0) fL MCH 31.4 (25.0-35.0) pg MCHC 34.0 (31.0-37.0) g/dL RDW 13.2 (11.5-15.5) % Plt Count 161 (150-450) k/uL MPV 9.4 Neutrophils % 71 % Lymphocytes % 18 % Monocytes % 7 % Eosinophils % 1 % Basophils % 0 % Neutrophils # 6.3 (1.3-7.7) k/uL Lymphocytes # 1.6 (1.0-4.8) k/uL Monocytes # 0.7 (0-1.0) k/uL Eosinophils # 0.1 (0-0.7) k/uL Basophils # 0.0 (0-0.2) k/uL Sodium 138 (137-145) mmol/L Potassium 4.7 (3.5-5.1) mmol/L Chloride 100 (98-107) mmol/L Carbon Dioxide 31 H (22-30) mmol/L Anion Gap 7 mmol/L BUN 23 H (7-17) mg/dL Creatinine 1.31 H (0.52-1.04) mg/dL Est GFR (CKD-EPI)AfAm 49 (>60 ml/min/1.73 sqM) Est GFR (CKD-EPI)NonAf 42 (>60 ml/min/1.73 sqM) Glucose 103 H (74-99) mg/dL Calcium 9.3 (8.4-10.2) mg/dL Magnesium 2.1 (1.6-2.3) mg/dL Total Bilirubin 1.1 (0.2-1.3) mg/dL AST 49 H (14-36) U/L ALT 35 H (4-34) U/L Alkaline Phosphatase 86 (38-126) U/L Total Protein 7.0 (6.3-8.2) g/dL Albumin 4.1 (3.5-5.0) g/dL Lipase 88 (23-300) U/L Disposition Clinical Impression: Biliary colic, Cholelithiasis Disposition: ADMITTED IP TO THIS [facility] Condition: Stable Referrals: Johny Edouard DO [Primary Care Provider] - 1-2 days Time of Disposition: 02:00 Decision to Admit Reason: Admit from EC Decision Date: 07/17/22 Decision Time: 02:00
[2022-07-17] MEDS: SODIUM CHLORIDE 0.9% 1,000 ML IV SCH ×2 (03:31→16:59)
[2022-07-17] MEDS ORDERED: ONDANSETRON 4 MG/2 ML VIAL IVP PRN ×2 (08:10→17:16)
[2022-07-17] MEDS: PIPERACILLIN-TAZOBACTAM 3.375 GM in SODIUM CHLORIDE 0.9% 100 ML IVPB SCH ×3 (09:01→23:41)
--- NOTE | 2022-07-17 11:54 | P.GSHP ---
History of Present Illness H&P Date: 07/17/22 CHIEF COMPLAINT: Abdominal pain HISTORY OF PRESENT ILLNESS: This is a 67-year-old female with a known history of gallstones. She reports having gallbladder issues for the past 2 years. She was scheduled outpatient cholecystectomy on July [address] Ugalde. However 6 days ago patient started to have increase in right upper quadrant abdominal pain. She reports that initially it started in her back and slowly started to wrap around into the right upper quadrant. Patient reports the pain did become very sharp and therefore came into the ER for further evaluation. She does report the pain is worse after eating. She did have some nausea no vomiting. Denies any fever chills or sweats. Denies any chest pain, shortness of breath or cough. PAST MEDICAL HISTORY: See below and CHF PAST SURGICAL HISTORY: See below MEDICATIONS: See below ALLERGIES: See below SOCIAL HISTORY: No illicit drug use. REVIEW OF SYSTEMS: CONSTITUTIONAL: Denies fever or chills. HEENT: Denies blurred vision, vision changes, or eye pain. Denies hemoptysis CARDIOVASCULAR: Denies chest pain or pressure. RESPIRATORY: No shortness of breath. GASTROINTESTINAL: See HPI for pertinent findings HEMATOLOGIC: Denies bleeding disorders. GENITOURINARY: Denies any blood in urine or increased urinary frequency. SKIN: Denies pruitis. Denies rash. PHYSICAL EXAM: VITAL SIGNS: Reviewed GENERAL: Well-developed in no acute distress. HEENT: No sclera icterus. Extraocular movements grossly intact. Moist buccal mucosa. Head is atraumatic, normocephalic. No nasal drainage. ABDOMEN: Soft. Nondistended. Tenderness to palpation in the right upper quadrant NEUROLOGIC: Alert and oriented. Cranial nerves II through XII grossly intact. Extremities: edema bilateral lower extremities LABORATORY DATA: WBC is 9.0 Hgb 14.4 platelets 161 Sodium 138 potassium 4.7 creatinine 1.31 Total bilirubin 1.1 AST 49 ALT 35 alk phos 86 IMAGING: ASSESSMENT: 1. Acute cholecystitis 2. Cholelithiasis PLAN: -Patient scheduled for laparoscopic cholecystectomy today with Dr. Ugalde -Keep patient nothing by mouth -Continue IV fluids -Start IV antibiotics -Continue pain medication as needed Physician Playback Operator note has been reviewed by physician. Signing provider agrees with the documented findings, assessment, and plan of care. I have personally seen and examined the patient, reviewed the TELECOMMUNICATIONS REPAIRER /PAs history, exam and MDM and agree with the assessment and plan as written. Based on total visit time, I have performed more than 50% of the visit. As above: Patient admitted through the emergency department last night with acute cholecystitis. Labs noted. Pain somewhat improved today. She is scheduled for cholecystectomy on Thursday. We'll proceed with laparoscopic cholecystectomy, possible open at this time. Risks of bleeding, infection, bile leak, bile duct injury, retained common bile duct stone, trocar injury, conversion to an open procedure, hernia, anesthesia related complications were reviewed. The patient understands and wishes to proceed. Past Medical History Past Medical History: Hypertension, Myocardial Infarction ([place]) Additional Past Medical History / Comment(s): hemorrhoids, [place] x2 Last Myocardial Infarction Date:: 2007 History of Any Multi-Drug Resistant Organisms: None Reported Past Surgical History: Heart Catheterization, Orthopedic Surgery Additional Past Surgical History / Comment(s): LT KNEE REPLACEMENT,PTCA Past Anesthesia/Blood Transfusion Reactions: No Reported Reaction Past Psychological History: No Psychological Hx Reported Smoking Status: Never smoker Past Alcohol Use History: None Reported Past Drug Use History: None Reported - Past Family History Mother Family Medical History: Cancer Additional Family Medical History / Comment(s): breast,brain Father Family Medical History: COPD Additional Family Medical History / Comment(s): emphysema Medications and Allergies Home Medications Medication Instructions Recorded Confirmed Type Glucosam/Jonah-Msm1/C/Thad/Bosw 1 tab PO DAILY 09/24/16 07/17/22 History [Glucosamine-Chondroitin Tablet] Atorvastatin [Lipitor] 20 mg PO HS 08/20/17 07/17/22 History Furosemide [Lasix] 20 mg PO BID 04/06/18 07/17/22 History allopurinoL [Zyloprim] 100 mg PO DAILY 04/06/18 07/17/22 History lisinopriL 20 mg PO HS 04/06/18 07/17/22 History Aspirin EC [Ecotrin] 325 mg PO HS 04/20/20 07/17/22 History Cholecalciferol [Vitamin D3 (125 125 mcg PO DAILY 05/03/21 07/17/22 History Mcg = 5000 Iu)] Multivit-Min/Iron/Folic/Lutein 1 tab PO DAILY 05/03/21 07/17/22 History [Centrum Silver Women Tablet] Potassium Chloride ER [K-Dur 10] 10 meq PO HS 05/03/21 07/17/22 History Spironolactone 25 mg PO DAILY 05/03/21 07/17/22 History carvediloL [Coreg] 6.25 mg PO BID 07/17/22 07/17/22 History Allergies Allergy/AdvReac Type Severity Reaction Status Date / Time No Known Allergies Allergy Verified 07/17/22 07:05 Surgical - Exam Vital Signs Temp Pulse Resp BP Pulse Ox 98.1 F 76 20 165/88 99 07/16/22 22:46 07/16/22 22:46 07/16/22 22:46 07/16/22 22:46 07/16/22 22:46 Results - Labs 07/17/22 01:40 07/17/22 01:40 Abnormal Lab Results - Last 24 Hours (Table) 07/17/22 Range/Units 01:40 Carbon Dioxide 31 H (22-30) mmol/L BUN 23 H (7-17) mg/dL Creatinine 1.31 H (0.52-1.04) mg/dL Glucose 103 H (74-99) mg/dL AST 49 H (14-36) U/L ALT 35 H (4-34) U/L Diabetes panel 07/17/22 Range/Units 01:40 Sodium 138 (137-145) mmol/L Potassium 4.7 (3.5-5.1) mmol/L Chloride 100 (98-107) mmol/L Carbon Dioxide 31 H (22-30) mmol/L BUN 23 H (7-17) mg/dL Creatinine 1.31 H (0.52-1.04) mg/dL Glucose 103 H (74-99) mg/dL Calcium 9.3 (8.4-10.2) mg/dL AST 49 H (14-36) U/L ALT 35 H (4-34) U/L Alkaline Phosphatase 86 (38-126) U/L Total Protein 7.0 (6.3-8.2) g/dL Albumin 4.1 (3.5-5.0) g/dL Calcium panel 07/17/22 Range/Units 01:40 Calcium 9.3 (8.4-10.2) mg/dL Albumin 4.1 (3.5-5.0) g/dL Pituitary panel 07/17/22 Range/Units 01:40 Sodium 138 (137-145) mmol/L Potassium 4.7 (3.5-5.1) mmol/L Chloride 100 (98-107) mmol/L Carbon Dioxide 31 H (22-30) mmol/L BUN 23 H (7-17) mg/dL Creatinine 1.31 H (0.52-1.04) mg/dL Glucose 103 H (74-99) mg/dL Calcium 9.3 (8.4-10.2) mg/dL Adrenal panel 07/17/22 Range/Units 01:40 Sodium 138 (137-145) mmol/L Potassium 4.7 (3.5-5.1) mmol/L Chloride 100 (98-107) mmol/L Carbon Dioxide 31 H (22-30) mmol/L BUN 23 H (7-17) mg/dL Creatinine 1.31 H (0.52-1.04) mg/dL Glucose 103 H (74-99) mg/dL Calcium 9.3 (8.4-10.2) mg/dL Total Bilirubin 1.1 (0.2-1.3) mg/dL AST 49 H (14-36) U/L ALT 35 H (4-34) U/L Alkaline Phosphatase 86 (38-126) U/L Total Protein 7.0 (6.3-8.2) g/dL Albumin 4.1 (3.5-5.0) g/dL
[2022-07-17] MEDS ORDERED: IV FLUID CONTINUATION 1,000 ML IV ONE (16:03)
[2022-07-17] MEDS ORDERED: DEXAMETHASONE SOD PHOSPHATE 4 MG/ML 1 ML VIAL IVP ONE (16:04)
[2022-07-17] MEDS ORDERED: ONDANSETRON 4 MG/2 ML VIAL IVP ONE ×2 (16:04)
[2022-07-17] MEDS ORDERED: MIDAZOLAM 2 MG/2 ML VIAL ONE (16:07)
[2022-07-17] MEDS ORDERED: LABETALOL 5 MG/ML VIAL MDV ONE (16:07)
[2022-07-17] MEDS ORDERED: PROPOFOL 10 MG/ML 20 ML VIAL IV ONE (16:07)
[2022-07-17] MEDS ORDERED: ROCURONIUM 10 MG/ML (5 ML VIAL) IV ONE (16:07)
[2022-07-17] MEDS ORDERED: SUCCINYLCHOLINE CHLORIDE 200 MG/10 ML VIAL IV ONE (16:07)
[2022-07-17] MEDS ORDERED: LIDOCAINE 2% INJ 20 MG/ML (2 ML VIAL) ONE (16:07)
[2022-07-17] MEDS ORDERED: NEOSTIGMINE 1 MG/ML 10 ML VIAL ONE (16:07)
[2022-07-17] MEDS ORDERED: fentaNYL (PF) 50 MCG/ML 2 ML AMP ONE (16:07)
[2022-07-17] MEDS ORDERED: GLYCOPYRROLATE 0.2 MG/ML 2 ML VIAL ONE (16:07)
[2022-07-17] MEDS ORDERED: BUPIVACAINE (PF) 0.25% 30 ML VIAL SQ ONE ×2 (16:34→17:08)
[2022-07-17] MEDS ORDERED: ACETAMINOPHEN TAB 325 MG TAB PO PRN (17:16)
[2022-07-17] MEDS ORDERED: traMADol 50 MG TAB PO PRN (17:16)
[2022-07-17] MEDS ORDERED: HYDROcodone/APAP 5-325MG 1 EACH TAB PO PRN (17:16)
[2022-07-17] MEDS ORDERED: HYDROmorphone 1 MG/ML 1 ML SYRINGE IVP PRN (17:16)
[2022-07-17] MEDS ORDERED: METOCLOPRAMIDE 5 MG/ML 2 ML VIAL IVP PRN (17:16)
--- NOTE | 2022-07-17 17:20 | P.OP ---
Date of Procedure: 07/17/22 Procedure(s) Performed: PREOPERATIVE DIAGNOSIS: Acute calculus cholecystitis POSTOPERATIVE DIAGNOSIS: Same PROCEDURE: Laparoscopic cholecystectomy SURGEON: Aftab EBL: 25 mL ANESTHESIA: Gen. COMPLICATIONS: None OPERATIVE PROCEDURE: The patient was brought and placed on the operating room table in the supine position. The patient was placed under general anesthesia at that time. The abdomen was prepped and draped in the usual sterile fashion. A small curvilinear supraumbilical incision was made. The fascia was grasped with the Jessica forceps. The fascia was retracted anteriorly. The Veress needle was advanced into the peritoneal cavity. The saline drop test was normal. Insufflation took place up to 15 mmHg. A 5 mm optical trocar was advanced and the peritoneal cavity. 2 additional 5 mm trochars were placed in the right upper quadrant under direct visualization. A 12 mm trocar was advanc ed into the epigastric incision site. The gallbladder was distended and inflamed. In order to manipulate the gallbladder I decompressed the gallbladder by making a small opening and the contents were evacuated using the suction device. The gallbladder was retracted superiorly and laterally. The peritoneum overlying the infundibulum was bluntly dissected. The patient's cystic duct was visualized. The junction between the cystic duct common and hepatic duct was identified. The critical view of safety was achieved after blunt dissection. The cystic duct was then divided after placement of 3 12 mm clips on the patient's side and one on the specimen side. The cystic artery was identified and clipped as well. A small vessel was seen along the gallbladder fossa and clipped as well. The gallbladder was then removed from the liver bed using electrocautery. The gallbladder was then removed from the epigastric trocar site with an Endo Catch bag. The gallbladder fossa was irrigated with saline. There was no evidence of any bleeding or biliary drainage seen. The fascia at the 12 millimeter site was closed using a Chad-Dwaine 0 Vicryl stitch. The trochars were then removed. The skin at all 4 sites was closed using a 4-0 Monocryl stitch. Skin glue was utilized on the incision sites. At the end of this procedure the sponge and needle counts were correct. DISPOSITION: Stable to the recovery room
[2022-07-17] MEDS ORDERED: LACTATED RINGERS 1,000 ML IV ONE (18:12)
[2022-07-17] MEDS: HEPARIN SODIUM,PORCINE/PF 5,000 UNIT/0.5 ML SYRINGE SQ SCH (23:41)
[2022-07-18] MEDS: SODIUM CHLORIDE 0.9% 1,000 ML IV SCH ×2 (06:12→09:12)
[2022-07-18] MEDS: HEPARIN SODIUM,PORCINE/PF 5,000 UNIT/0.5 ML SYRINGE SQ SCH ×2 (07:50→16:40)
[2022-07-18 08:54] LABS: Basophils # (A) 0.01 X 10*3/uL (0.00-0.10); Basophils % (A) 0.1 %; Eosinophils # (A) 0 X 10*3/uL (0.04-0.35); Eosinophils % (A) 0 %; HCT 44.8 % (37.2-46.3); Immature Grans, Automated 0.6 %; Lymphocytes # (A) 1.05 X 10*3/uL (0.90-5.00); Lymphocytes % (A) 9.7 %; MCH 29.9 pg (27.0-32.0); MCHC 31.3 g/dL (32.0-37.0); MCV 95.7 fL (80.0-97.0); Mean Platelet Volume 11.5 fL (9.5-12.2); Monocytes # (A) 0.52 X 10*3/uL (0.20-1.00); Monocytes % (A) 4.8 %; NRBC Per 100 WBC 0 /100 WBCS (0.0-0.0); Neutrophils % (A) 84.8 %; Platelet Count 177 X 10*3/uL (140-440); RBC 4.68 X 10*6/uL (4.10-5.20); RDW 12.4 % (11.5-14.5); WBC 10.84 X 10*3/uL (4.50-10.00)
[2022-07-18] MEDS: PIPERACILLIN-TAZOBACTAM 3.375 GM in SODIUM CHLORIDE 0.9% 100 ML IVPB SCH ×2 (09:09→16:40)
[2022-07-18] MEDS: PANTOPRAZOLE 40 MG/10 ML VIAL IV SCH (09:09)
[2022-07-18 11:38] LABS: African American GFR (CKD) 41.6 (60.0-200.0); Albumin 3.9 g/dL (3.8-4.9); Albumin/Globulin Ratio 1.77 (1.60-3.17); Anion Gap 12.5 mmol/L (10.00-18.00); BUN/Creat Ratio 11.93 Ratio (12.00-20.00); Blood Urea Nitrogen 17.9 mg/dL (9.0-27.0); Carbon Dioxide 21.5 mmol/L (20.0-27.5); Globulin 2.2 g/dL (1.6-3.3); Non-African American GFR(CKD) 35.9 (60.0-200.0); Potassium 4.7 mmol/L (3.5-5.5); Total Bilirubin 0.5 mg/dL (0.30-1.20); Total Protein 6.1 g/dL (6.2-8.2)
--- NOTE | 2022-07-18 11:58 | P.DS ---
Providers Date of admission: 07/17/22 02:46 Expected date of discharge: 07/18/22 Attending physician: Siddhartha Ugalde Consults: 07/17/22 17:16 Consult Physician Routine Consulting Provider: Johny Edouard Consult Reason/Comments: Medical management Do you want consulting provider notified?: Yes Primary care physician: Johny Edouard Hospital Course: Discharge diagnoses 1. Acute calculus cholecystitis status post laparoscopic cholecystectomy Hospital course This is a 67-year-old female with a known history of gallstones. She reports having gallbladder issues for the past 2 years. She was scheduled outpatient cholecystectomy on July [address] Ugalde. Patient presented to the ER due to increased right upper quadrant abdominal pain. She felt that she could not wait until her surgery on July 21. Patient diagnosed with acute calculus cholecystitis. She is status post laparoscopic cholecystectomy. Patient reports her pain is controlled. She is tolerating diet. She is having flatus. She has been up and ambulating. Incision site clean dry and intact. She is stable for discharge. Please refer to chart for any further details. Physician Patient Resource Specialist note has been reviewed by physician. Signing provider agrees with the documented findings, assessment, and plan of care. I have personally seen and examined the patient, reviewed the COMPUTER OPERATOR /PAs history, exam and MDM and agree with the assessment and plan as written. Based on total visit time, I have performed more than 50% of the visit. As above: Patient doing well today. Pain is improved. She would like to go h ome. We'll discharge. Follow-up as outpatient. Patient Condition at Discharge: Stable Plan - Discharge Summary New Discharge Prescriptions: New oxyCODONE HCL [OxyIR] 5 mg PO Q6H PRN 3 Days #12 tab PRN Reason: Pain Acetaminophen Tab [Tylenol Tab] 650 mg PO Q4H PRN #30 tablet PRN Reason: Pain Continue Glucosam/Jonah-Msm1/C/Thad/Bosw [Glucosamine-Chondroitin Tablet] 1 tab PO DAILY Atorvastatin [Lipitor] 20 mg PO HS lisinopriL 20 mg PO HS allopurinoL [Zyloprim] 100 mg PO DAILY Furosemide [Lasix] 20 mg PO BID Aspirin EC [Ecotrin] 325 mg PO HS Spironolactone 25 mg PO DAILY carvediloL [Coreg*] 6.25 mg PO BID Cholecalciferol [Vitamin D3 (125 Mcg = 5000 Iu)] 125 mcg PO DAILY Potassium Chloride ER [K-Dur 10] 10 meq PO HS Multivit-Min/Iron/Folic/Lutein [Centrum Silver Women Tablet] 1 tab PO DAILY Discharge Medication List Glucosam/Jonah-Msm1/C/Thad/Bosw [Glucosamine-Chondroitin Tablet] 1 tab PO DAILY 09/24/16 [History] Atorvastatin [Lipitor] 20 mg PO HS 08/20/17 [History] Furosemide [Lasix] 20 mg PO BID 04/06/18 [History] allopurinoL [Zyloprim] 100 mg PO DAILY 04/06/18 [History] lisinopriL 20 mg PO HS 04/06/18 [History] Aspirin EC [Ecotrin] 325 mg PO HS 04/20/20 [History] Cholecalciferol [Vitamin D3 (125 Mcg = 5000 Iu)] 125 mcg PO DAILY 05/03/21 [History] Multivit-Min/Iron/Folic/Lutein [Centrum Silver Women Tablet] 1 tab PO DAILY 05/03/21 [History] Potassium Chloride ER [K-Dur 10] 10 meq PO HS 05/03/21 [History] Spironolactone 25 mg PO DAILY 05/03/21 [History] carvediloL [Coreg*] 6.25 mg PO BID 07/17/22 [History] Acetaminophen Tab [Tylenol Tab] 650 mg PO Q4H PRN #30 tablet 07/18/22 [Rx] oxyCODONE HCL [OxyIR] 5 mg PO Q6H PRN 3 Days #12 tab 07/18/22 [Rx] Follow up Appointment(s)/Referral(s): Johny Edouard DO [Primary Care Provider] - 1-2 days Siddhartha Ugalde MD [Family Provider] - 1 Week Activity/Diet/Wound Care/Special Instructions: No driving while taking OxyIR No lifting over 10 pounds You may shower. No soaking or tub baths for 2 weeks Very light activity until you are reevaluated at your follow up appointment with your surgeon Discharge Disposition: HOME SELF-CARE
[2022-07-18] MEDS ORDERED: BENZOCAINE/MENTHOL LOZENG 1 EACH LOZENGE MUCOUS MEM PRN (14:48)
[2022-07-18] MEDS ORDERED: LACTULOSE 20 GM/30 ML CUP PO ONE (14:52)
[2022-07-18] MEDS: SPIRONOLACTONE 25 MG TAB PO SCH (16:40)
[2022-07-18] MEDS: carvediloL 6.25 MG TAB PO SCH (16:40)
[2022-07-18] MEDS: FUROSEMIDE 20 MG TAB PO SCH (17:31)
[2022-07-18] MEDS ORDERED: POTASSIUM CHLORIDE ER 10 MEQ TAB.ER.PRT PO SCH (21:00)
[2022-07-18] MEDS ORDERED: ATORVASTATIN 20 MG TAB PO SCH (21:00)
[2022-07-18] MEDS ORDERED: ASPIRIN 325 MG TAB PO SCH (21:00)
[2022-07-18] MEDS ORDERED: lisinopriL 20 MG TAB PO SCH (21:00)
--- NOTE | 2022-07-18 23:08 | P.CONS ---
History of Present Illness - Reason for Consult Consult date: 07/18/22 - History of Present Illness Patient is a pleasant 67-year-old white female who is admitted after undergoing laparoscopic cholecystectomy Patient was found to have a dysfunctional gallbladder with cholelithiasis she was to undergo a elective cholecystectomy on July 21 but patient had increasing problems with right upper quadrant pain bloating discomfort and she came in early to the ER is subsequently admitted and underwent laparoscopic procedure. Patient is currently in bed doing well without any nausea vomiting or diarrhea she is on a clear liquid diet and tolerating that okay. Review of Systems GENERAL: Patient denies fever. Denies chills. EYES: Denies blurred vision. Denies vision changes. Denies eye pain. EARS, NOSE, MOUTH, & THROAT: Denies headache. Denies sore throat. Denies ear pain. RESPIRATORY: Denies cough. Denies shortness of breath. Denies sputum production. Denies hemoptysis. CARDIOVASCULAR: Denies chest pain or pressure. Denies palpitations. Denies arrhy thmias. GASTROINTESTINAL: Denies abdominal pain. Denies diarrhea. Denies constipation. Denies nausea. Denies vomiting. Denies heartburn. Denies blood in the stool. GENITOURINARY: Denies urinary frequency. Denies burning. Denies dysuria. Denies cloudy urine. Denies blood in the urine. MUSCULOSKELETAL: Denies myalgias. Denies joint swelling. Denies decreased range of motion beyond patients baseline. INTEGUMENTARY: Denies pruitis. Denies rash. PSYCHIATRIC: Denies suicidal or homicial ideations. ENDOCRINE: Denies weight change. Denies polydipsia. Denies polyuria. HEMATOLOGIC: Denies bleeding disorders. Past Medical History Past Medical History: Hypertension, Myocardial Infarction ([place]) Additional Past Medical History / Comment(s): hemorrhoids, [place] x2 Last Myocardial Infarction Date:: 2007 History of Any Multi-Drug Resistant Organisms: None Reported Past Surgical History: Heart Catheterization, Orthopedic Surgery Additional Past Surgical History / Comment(s): LT KNEE REPLACEMENT,PTCA Past Anesthesia/Blood Transfusion Reactions: No Reported Reaction Past Psychological History: No Psychological Hx Reported Smoking Status: Never smoker Past Alcohol Use History: None Reported Past Drug Use History: None Reported - Past Family History Mother Family Medical History: Cancer Additional Family Medical History / Comment(s): breast,brain Father Family Medical History: COPD Additional Family Medical History / Comment(s): emphysema Medications and Allergies Home Medications Medication Instructions Recorded Confirmed Type Glucosam/Jonah-Msm1/C/Thad/Bosw 1 tab PO DAILY 09/24/16 07/17/22 History [Glucosamine-Chondroitin Tablet] Atorvastatin [Lipitor] 20 mg PO HS 08/20/17 07/17/22 History Furosemide [Lasix] 20 mg PO BID 04/06/18 07/17/22 History allopurinoL [Zyloprim] 100 mg PO DAILY 04/06/18 07/17/22 History lisinopriL 20 mg PO HS 04/06/18 07/17/22 History Aspirin EC [Ecotrin] 325 mg PO HS 04/20/20 07/17/22 History Cholecalciferol [Vitamin D3 (125 125 mcg PO DAILY 05/03/21 07/17/22 History Mcg = 5000 Iu)] Multivit-Min/Iron/Folic/Lutein 1 tab PO DAILY 05/03/21 07/17/22 History [Centrum Silver Women Tablet] Potassium Chloride ER [K-Dur 10] 10 meq PO HS 05/03/21 07/17/22 History Spironolactone 25 mg PO DAILY 05/03/21 07/17/22 History carvediloL [Coreg*] 6.25 mg PO BID 07/17/22 07/17/22 History Acetaminophen Tab [Tylenol Tab] 650 mg PO Q4H PRN #30 tablet 07/18/22 Rx oxyCODONE HCL [OxyIR] 5 mg PO Q6H PRN 3 Days #12 tab 07/18/22 Rx Allergies Allergy/AdvReac Type Severity Reaction Status Date / Time No Known Allergies Allergy Verified 07/17/22 07:05 Physical Exam Osteopathic Statement: *. No significant issues noted on an osteopathic structural exam other than those noted in the History and Physical/Consult. Vitals: Vital Signs Temp Pulse Pulse Resp BP Pulse Ox 07/18/22 20:00 18 07/18/22 19:12 98.1 F 80 18 146/80 95 07/18/22 15:00 97.9 F 81 18 146/79 93 L 07/18/22 09:33 93 L 07/18/22 08:00 20 07/18/22 07:00 97.5 F L 85 20 138/79 93 L 07/18/22 02:14 98.1 F 84 17 125/64 93 L Intake and Output 07/18/22 07/18/22 07/18/22 06:59 14:59 22:59 Intake Total 500 238 Balance 500 238 Intake: Oral 500 238 Other: Voiding Method Toilet Toilet # Voids 2 GENERAL: This is a -year-old in no apparent distress at the time of examination. Pleasant and cooperative. HEENT: Head is atraumatic, normocephalic. Pupils are equal, round, and reactive to light. Sclerae anicteric. Conjunctivae are clear. Mucus membranes of the mouth are moist. Neck is supple. RESPIRATORY: Clear to auscultation. No wheezes, rales, or rhonchi. No use of accessory muscles. Patient maintaining oxygen saturation greater than 92%. No chest wall tenderness is noted on palpation or with deep breathing. CARDIOVASCULAR: Regular rate and rhythm. S1 and S2 noted. No systolic or diastolic murmur auscultated. No JVD noted. No S3 or S4 noted. GASTROINTESTINAL: Patient has positive bowel sounds she denies any abnormal abdominal pain she is scheduled for incisions that are clean and dry INTEGUMENTARY: No cyanosis. No jaundice. No rashes noted. No cellulitis noted. EXTREMITIES: 2+ peripheral pulses. No evidence of peripheral edema. No calf tenderness noted. NEUROLOGIC: Cranial nerves II-XII intact. PSYCHIATRIC: Awake, alert, and oriented X 3. Appropriate affect. Intact judgement and insight. Results CBC & Chem 7: 07/18/22 06:18 07/18/22 06:18 Labs: Abnormal Lab Results - Last 24 Hours (Table) 07/18/22 07/18/22 Range/Units 06:18 06:18 WBC 10.84 H (4.50-10.00) X 10*3/uL MCHC 31.3 L (32.0-37.0) g/dL Immature Gran # 0.06 H (0.00-0.04) X 10*3/uL Neutrophils # 9.20 H (1.80-7.70) X 10*3/uL Eosinophils # 0 L (0.04-0.35) X 10*3/uL Est GFR (CKD-EPI)AfAm 41.6 L (60.0-200.0) Est GFR (CKD-EPI)NonAf 35.9 L (60.0-200.0) BUN/Creatinine Ratio 11.93 L (12.00-20.00) Ratio Glucose 136 H (70-110) mg/dL AST 50 H (13-35) U/L Total Protein 6.1 L (6.2-8.2) g/dL Assessment and Plan (1) Obesity Current Visit: Yes Status: Acute Code(s): E66.9 - OBESITY, UNSPECIFIED SNOMED Code(s): 090789063 (2) Hypertension Current Visit: Yes Status: Acute Code(s): I10 - ESSENTIAL (PRIMARY) HYPERTENSION SNOMED Code(s): 78683964 (3) Biliary colic Current Visit: Yes Status: Acute Code(s): K80.50 - CALCULUS OF BILE DUCT W/O CHOLANGITIS OR CHOLECYST W/O OBST SNOMED Code(s): 72620344 (4) Cholelithiasis Current Visit: Yes Status: Acute Code(s): K80.20 - CALCULUS OF GALLBLADDER W/O CHOLECYSTITIS W/O OBSTRUCTION SNOMED Code(s): 397729360 Plan: Thank you for allowing me to participate in this patient's care she is doing well post operatively and recommend postsurgical care she is cleared medically to be discharged. End dictation Time with Patient: Greater than 30
[2022-07-19] MEDS: HEPARIN SODIUM,PORCINE/PF 5,000 UNIT/0.5 ML SYRINGE SQ SCH ×2 (00:41→07:54)
[2022-07-19] MEDS: PIPERACILLIN-TAZOBACTAM 3.375 GM in SODIUM CHLORIDE 0.9% 100 ML IVPB SCH ×2 (00:41→07:45)
[2022-07-19] MEDS: FUROSEMIDE 20 MG TAB PO SCH (07:44)
[2022-07-19] MEDS: SPIRONOLACTONE 25 MG TAB PO SCH (07:44)
[2022-07-19] MEDS: PANTOPRAZOLE 40 MG/10 ML VIAL IV SCH (07:44)
[2022-07-19] MEDS: carvediloL 6.25 MG TAB PO SCH (07:44)
[2022-07-19] MEDS ORDERED: allopurinoL 100 MG TAB PO SCH (09:00)
[2022-07-19] MEDS: SODIUM CHLORIDE 0.9% 1,000 ML IV SCH (10:06)
--- NOTE | 2022-07-19 13:06 | P.PN ---
Subjective Progress Note Date: 07/19/22 Patient is a pleasant 67-year-old white female who is admitted after undergoing laparoscopic cholecystectomy Patient was found to have a dysfunctional gallbladder with cholelithiasis she was to undergo a elective cholecystectomy on July 21 but patient had increasing problems with right upper quadrant pain bloating discomfort and she came in early to the ER is subsequently admitted and underwent laparoscopic procedure. Patient is currently in bed doing well without any nausea vomiting or diarrhea she is on a clear liquid diet and tolerating that okay. 07/19/2022 Patient is evaluated today postoperative day #1 lap pratik. Patient was monitored overnight due to increased nausea and abdominal pain and was held overnight for monitoring. Today patient is tolerating diet and is passing gas feels she is going to have a BM. Abdominal pain is much improved with minimal tenderness. Abdomen is soft and normoactive bowel sounds. Pending surgery clearance for DC home today. Medically she is cleared. Review of Systems Constitutional: Denied any fatigue denied any fever. Cardio vascular: denied any chest pain, palpitations Gastrointestinal: denied any nausea, vomiting, diarrhea Pulmonary: Denied any shortness of breath cough Neurologic denied any new focal deficits All inpatient medications were reviewed and appropriate changes in these medications as dictated in the interval history and assessment and plan. PHYSICAL EXAMINATION: GENERAL: The patient is alert and oriented x3, not in any acute distress. Well developed, well nourished. HEENT: Pupils are round and equally reacting to light. EOMI. No scleral icterus. No conjunctival pallor. Normocephalic, atraumatic. No pharyngeal erythema. No thyromegaly. CARDIOVASCULAR: S1 and S2 present. No murmurs, rubs, or gallops. PULMONARY: Chest is clear to auscultation, no wheezing or crackles. ABDOMEN: Patient has positive bowel sounds she denies any abnormal abdominal pain she is scheduled for incisions that are clean and dry MUSCULOSKELETAL: No joint swelling or deformity. EXTREMITIES: No cyanosis, clubbing, or pedal edema. NEUROLOGICAL: Gross neurological examination did not reveal any focal deficits. SKIN: No rashes. Assessment and Plan Cholelisthiasis and biliary colic status post laproscopic cholecystectomy Postoperative leukocytosis encourage patient to use incentive spirometer and this is expected to improve. Hypertension Obesity History of myocardial infarction GI prophylaxis Full Code Patient is medically cleared for discharge when ok with primary surgical services. Recommend to continue incentive spirometer 10 x an hour while awake and increase activity level. Follow up with PCP on discharge. Continue on same home medications. The impression and plan of care has been dictated by Corrie Vasquez Nurse Practitioner as directed. Dr. Maribel MD I have performed a history and physical examination and medical decision making of this patient, discussed the same with the dictator, and agree with the dictators assessment and plan as written, documented as a scribe. Based on total visit time, I have performed more than 50% of this visit. Objective - Vital Signs Vital signs: Vital Signs Temp 98.0 F 07/19/22 07:00 Pulse 74 07/19/22 07:00 Resp 18 07/19/22 07:44 BP 121/79 07/19/22 07:00 Pulse Ox 97 07/19/22 07:38 FiO2 Intake & Output 07/18/22 07/19/22 07/19/22 18:59 06:59 18:59 Intake Total 238 118 Balance 238 118 Intake: Oral 238 118 Other: Voiding Method Toilet Toilet Toilet # Voids 2 - Labs CBC & Chem 7: 07/18/22 06:18 07/18/22 06:18 Assessment and Plan Time with Patient: Less than 30
--- NOTE | 2022-07-19 15:34 | P.DS ---
Providers Date of admission: 07/17/22 02:46 Expected date of discharge: 07/19/22 Attending physician: Siddhartha Ugalde Consults: 07/17/22 17:16 Consult Physician Routine Consulting Provider: Johny Edouard Reason/Comments: Medical management Do you want consulting provider notified?: Yes Primary care physician: Johny Edouard [facility] Course: CHIEF COMPLAINT: Acute cholecystitis HISTORY OF PRESENT ILLNESS: The patient is a 67-year-old female status post laparoscopic cholecystectomy for acute cholecystitis. She is clinically doing better. She reports she was not passing flatus yesterday and was not feeling well. Today, she feels better. She is passing moderate flatus. She is sitting up in the bed. No moderate pain. She is eager to go home. ROS: No reports of nausea and vomiting. No fevers or chills. No new chest pain. No productive sputum PHYSICAL EXAM: VITAL SIGNS: Reviewed CONSTITUTIONAL: Well developed and in no acute distress. EYES: Conjuctivae without sclera icterus. Extraocular movements grossly intact. HEAD, EARS, NOSE, THROAT: Moist buccal mucosa. Head is atraumatic, normocephalic. Hears conversational speech. No nasal drainage. RESPIRATORY: Non-labored respirations and equal bilateral excursions. CARDIOVASCULAR: Palpable 2+ radial pulses. ABDOMEN: Incisions intact. MUSCULOSKELETAL: No gross deformity of the lower extremities noted. No clubbing. No cyanosis. SKIN: Good skin turgor. Well perfused. NEUROLOGIC: Cranial nerves II through XII grossly intact. No focal or lateralizing signs. PSYCH: Appropriate affect. Alert and oriented to person, place and time. CLINICAL LABS: Reviewed. ASSESSMENT: 1. Acute cholecystitis PLAN: 1. Wound care instructions including showering described. 2. Prescriptions already in chart. 3. Patient stable for discharge with follow up with Dr. Ugalde outpatient. Vital Signs Temp 98.2 F 07/19/22 15:00 Pulse 83 07/19/22 15:00 Resp 17 07/19/22 15:00 BP 144/85 07/19/22 15:00 Pulse Ox 95 07/19/22 15:00 FiO2 Intake & Output 07/19/22 07/19/22 07/20/22 06:59 18:59 06:59 Intake Total 438 Balance 438 Intake: Oral 438 Other: Voiding Method Toilet Toilet # Voids 2 Patient Condition at Discharge: Stable Plan - Discharge Summary New Discharge Prescriptions: New oxyCODONE HCL [OxyIR] 5 mg PO Q6H PRN 3 Days #12 tab PRN Reason: Pain Acetaminophen Tab [Tylenol Tab] 650 mg PO Q4H PRN #30 tablet PRN Reason: Pain Continue Glucosam/Jonah-Msm1/C/Thad/Bosw [Glucosamine-Chondroitin Tablet] 1 tab PO DAILY Atorvastatin [Lipitor] 20 mg PO HS lisinopriL 20 mg PO HS allopurinoL [Zyloprim] 100 mg PO DAILY Furosemide [Lasix] 20 mg PO BID Aspirin EC [Ecotrin] 325 mg PO HS Spironolactone 25 mg PO DAILY carvediloL [Coreg*] 6.25 mg PO BID Cholecalciferol [Vitamin D3 (125 Mcg = 5000 Iu)] 125 mcg PO DAILY Potassium Chloride ER [K-Dur 10] 10 meq PO HS Multivit-Min/Iron/Folic/Lutein [Centrum Silver Women Tablet] 1 tab PO DAILY Discharge Medication List Glucosam/Jonah-Msm1/C/Thad/Bosw [Glucosamine-Chondroitin Tablet] 1 tab PO DAILY 09/24/16 [History] Atorvastatin [Lipitor] 20 mg PO HS 08/20/17 [History] Furosemide [Lasix] 20 mg PO BID 04/06/18 [History] allopurinoL [Zyloprim] 100 mg PO DAILY 04/06/18 [History] lisinopriL 20 mg PO HS 04/06/18 [History] Aspirin EC [Ecotrin] 325 mg PO HS 04/20/20 [History] Cholecalciferol [Vitamin D3 (125 Mcg = 5000 Iu)] 125 mcg PO DAILY 05/03/21 [History] Multivit-Min/Iron/Folic/Lutein [Centrum Silver Women Tablet] 1 tab PO DAILY 05/03/21 [History] Potassium Chloride ER [K-Dur 10] 10 meq PO HS 05/03/21 [History] Spironolactone 25 mg PO DAILY 05/03/21 [History] carvediloL [Coreg*] 6.25 mg PO BID 07/17/22 [History] Acetaminophen Tab [Tylenol Tab] 650 mg PO Q4H PRN #30 tablet 07/18/22 [Rx] oxyCODONE HCL [OxyIR] 5 mg PO Q6H PRN 3 Days #12 tab 07/18/22 [Rx] Follow up Appointment(s)/Referral(s): Siddhartha Ugalde MD [Family Provider] - 07/31/22 8:30 am Johny Edouard DO [Primary Care Provider] - 1-2 days Patient Instructions/Handouts: Laparoscopic Cholecystectomy (DC) Activity/Diet/Wound Care/Special Instructions: No driving while taking OxyIR No lifting over 10 pounds You may shower. No soaking or tub baths for 2 weeks Very light activity until you are reevaluated at your follow up appointment with your surgeon Discharge Disposition: HOME SELF-CARE
[2022-07-19 16:20] VITALS: BP 144/85; PULSE 83; RESP 17; TEMP 98.2
== END 2022-07-19 16:15 | disposition home or self-care (01) ==
LOC: EC 22:45 → 6NMEDSUR 07-17 02:46
PROVIDERS: ADMIT Surgery; ATTEND Surgery
DX: K80.00 Calculus of gallbladder with acute cholecystitis without obstruction (principal); I10 Essential (primary) hypertension; I25.2 Old myocardial infarction; K64.9 Unspecified hemorrhoids; I25.10 Atherosclerotic heart disease of native coronary artery without angina pectoris; Z96.652 Presence of left artificial knee joint; N28.9 Disorder of kidney and ureter, unspecified; E66.01 Morbid (severe) obesity due to excess calories; Z68.42 Body mass index [BMI] 45.0-49.9, adult; Z80.3 Family history of malignant neoplasm of breast; Z80.8 Family history of malignant neoplasm of other organs or systems; Z83.6 Family history of other diseases of the respiratory system; Z79.82 Long term (current) use of aspirin; Z79.899 Other long term (current) drug therapy
CPT/HCPCS: 96361; 96374; 99285; 36415; 94760 ×2; 88304; 80053 ×2; 83690; 83735; 85025 ×2; 47562; G0378 ×3; J2543 ×3; J2250; J0330; J2270; J1100; J2710; J2405 ×2; J3010; J2704; C9113 ×2; J1644 ×3; J2001

== ENCOUNTER → 2022-11-06 | Outpatient (CLI) | payer MEDICARE ==
--- NOTE | 2022-11-06 09:22 | US ---
EXAMINATION TYPE: US kidneys/renal and bladder DATE OF EXAM: 11/06/2022 COMPARISON: NONE CLINICAL INDICATION: Female, 67 years old with history of N18.30 CHRONIC KIDNEY DISEASE, STAGE 3; ckd 3 EXAM MEASUREMENTS: Right Kidney: 10.2 x 4.8 x 4.1 cm Left Kidney: 8.7 x 4.5 x 4.3 cm Post Void Residual Volume: 0 mL Right Kidney: No hydronephrosis or masses seen Left Kidney: No hydronephrosis or masses seen Bladder: wnl Bilateral Jets seen: Right only Normal Post Void Residual: Yes There is no evidence for hydronephrosis at this point in time. No nephrolithiasis is seen. No kedar s are identified. The urinary bladder is anechoic. Bilateral ureteral jets are seen. IMPRESSION: 1. No evidence of hydronephrosis or shadowing renal stones. 2. Left atrophy.
== END | disposition home or self-care (01) ==
LOC: RADUSWWP 07:59
PROVIDERS: ATTEND Internal Medicine Nephrology
DX: N18.30 Chronic kidney disease, stage 3 unspecified (principal); N26.1 Atrophy of kidney (terminal)
CPT/HCPCS: 76770